=== PATIENT | female | born 1945 | race Caucasian/White ===

== ENCOUNTER → 2019-07-03 07:44 | Outpatient (CLI) | payer MEDICARE, OTHER, SELFPAY ==
[2019-07-03 08:44] LABS: Add Manual Diff / Slide Review NO; Basophils Absolute Auto 0 /uL (0-100); Eosinophils Absolute Auto 100 /uL (0-450); Eosinophils Percent Auto 2.8 % (2-4); Hematocrit 38.9 % (36-46); Hemoglobin 13.5 g/dL (12.0-16.0); Lymphocytes Absolute Auto 1400 /uL (1100-4500); Lymphocytes Percent Auto 35.4 % (25-40); Mean Corpuscular HGB Conc 34.7 % (30-36); Mean Corpuscular Hemoglobin 31.1 PG (26-34); Mean Corpuscular Volume 89.7 fL (80-100); Monocytes Absolute Auto 300 /uL (0-900); Neutrophils Absolute Auto 2000 /uL (1500-7000); Neutrophils Percent Auto 52.8 % (50-75); Platelet Count 208 X10^3/uL (150-400); Red Blood Cell Count 4.34 X10^6/uL (4.0-5.2); Red Cell Distribution Width 13.7 % (11.6-14.8); White Blood Cell Count 3.8 X10^3/uL (4.5-11.0)
[2019-07-03 09:02] LABS: Alanine Aminotransferase 24 IU/L (9-52); Albumin 3.8 g/dL (3.5-5.0); Albumin Globulin Ratio 1.4 (1.0-2.8); Alkaline Phosphatase 93 U/L (38-126); Aspartate Aminotransferase 28 IU/L (14-36); BUN Creatinine Ratio 23.8 (6-22); Bilirubin Total 0.6 mg/dL (0.2-1.3); Blood Urea Nitrogen 19 mg/dL (7-17); Calcium 9.7 mg/dL (8.4-10.2); Carbon Dioxide 31 mmol/L (22-32); Chloride 102 mmol/L (98-107); Cholesterol 185 mg/dL (140-199); Estimated Glomerular Filt Rate > 60.0 mL/min (>60); Globulin 2.8 g/dL (1.7-4.1); Glucose 97 mg/dL (80-110); HDL Cholesterol 62 mg/dL (40-60); HEMOLYSIS < 15 (0-50); LDL Cholesterol Calculated 96 mg/dL (<100); Sodium 137 mmol/L (137-145); Total Protein 6.6 g/dL (6.3-8.2); Triglycerides 136 mg/dL (35-150)
== END ==
PROVIDERS: PCP Family Medicine; Visit Provider Family Medicine
DX: E78.5 Hyperlipidemia, unspecified (principal); I10 Essential (primary) hypertension
CPT/HCPCS: 36415; 80053; 80061; 85025

== ENCOUNTER → 2019-09-22 13:48 | Outpatient (CLI) | payer MEDICARE, OTHER, SELFPAY ==
[2019-09-22 14:44] LABS: Add Manual Diff / Slide Review NO; Basophils Absolute Auto 0 /uL (0-100); Basophils Percent Auto 0.7 % (0-2); Eosinophils Absolute Auto 100 /uL (0-450); Eosinophils Percent Auto 1.7 % (2-4); Hematocrit 43.7 % (36-46); Hemoglobin 14.9 g/dL (12.0-16.0); Lymphocytes Absolute Auto 1600 /uL (1100-4500); Lymphocytes Percent Auto 25.2 % (25-40); Mean Corpuscular HGB Conc 34.2 % (30-36); Mean Corpuscular Hemoglobin 31.4 PG (26-34); Mean Corpuscular Volume 91.9 fL (80-100); Monocytes Absolute Auto 400 /uL (0-900); Monocytes Percent Auto 6.6 % (3-14); Neutrophils Absolute Auto 4100 /uL (1500-7000); Neutrophils Percent Auto 65.8 % (50-75); Platelet Count 249 X10^3/uL (150-400); Red Blood Cell Count 4.76 X10^6/uL (4.0-5.2); Red Cell Distribution Width 13.8 % (11.6-14.8); White Blood Cell Count 6.2 X10^3/uL (4.5-11.0)
[2019-09-22 14:56] LABS: Carbon Dioxide 26 mmol/L (22-32); Chloride 100 mmol/L (98-107); HEMOLYSIS 25 (0-50); Sodium 138 mmol/L (137-145)
== END ==
PROVIDERS: PCP Family Medicine; Visit Provider Orthopaedic Surgery
DX: Z01.818 Encounter for other preprocedural examination (principal); Z01.812 Encounter for preprocedural laboratory examination; M16.10 Unilateral primary osteoarthritis, unspecified hip
CPT/HCPCS: 36415; 80051; 85025; 93005

== ENCOUNTER 2019-10-16 06:05 | Inpatient (IN) | payer MEDICARE, OTHER, SELFPAY ==
[2019-10-16] VITALS (20 sets, daily range): BP systolic 94–119; BP diastolic 52–78; PULSE 54–78; RESP 14–18; TEMP 35.6–37; O2SAT 89–100; BMI 30.9
--- NOTE | 2019-10-16 06:00 | DI.RAD.S_ITS ---
PROCEDURE: XR PELVIS 1-2V INDICATIONS: post op films TECHNIQUE: 1 view of the lower pelvis acquired. COMPARISON: None. FINDINGS: Bones: Patient is status post left hip arthroplasty, with hardware components in expected positions. The hip joint appears congruent. The visualized bony structures appear intact. Soft tissues: Overlying postoperative changes are noted. No suspicious soft tissue densities. IMPRESSION: Post left total hip arthroplasty changes with anatomic alignment. Dictated by: Ramirez Garcia M.D. on 10/16/2019 at 10:05 Approved by: Ramirez Garcia M.D. on 10/16/2019 at 10:06
[2019-10-16] MEDS: LACTATED RINGERS 1,000 ML 42 ML IV ×2 (07:05→08:48)
[2019-10-16] MEDS: ACETAMINOPHEN 325 MG TABLET 975 MG PO (07:06)
[2019-10-16] MEDS: PREGABALIN 75 MG CAPSULE PO (07:06)
[2019-10-16] MEDS: CELECOXIB 200 MG CAPSULE PO (07:06)
[2019-10-16] MEDS: CEFAZOLIN 2 GM/100 ML FROZ.PIGGY IV ×2 (07:56→17:18)
--- NOTE | 2019-10-16 08:03 | PM.PREOP ---
Pre-operative Note Interval Note History & Physical reviewed/Exam performed by Physician: Yes Changes to H&P: No
--- NOTE | 2019-10-16 08:36 | SUR.OPER ---
Lateral on padded OR bed. Gel axillary roll. Arms secured on padded armboard with pillow supporting top arm. Padded hip positioner braces x4 - anterior and posterior chest and pelvis. Additional gel pad used anterior pelvis. Gel pad under bottom leg from knee to foot and secured with tape over sheet.
--- NOTE | 2019-10-16 08:46 | SUR.OPER ---
Supine on padded OR bed. Pillow under head, arms secured on padded armboards <90 degree abduction. Safety belt across torso. Non-operative leg secured with tape over blanket over lower leg. Operative leg secured in DeMayo/Al positioner. Foam padded brace at thigh of operative leg.
[2019-10-16] MEDS: KETOROLAC 30 MG/ML VIAL IV (08:49)
[2019-10-16] MEDS: MORPHINE 4 MG/ML INJ INJ (08:50)
[2019-10-16] MEDS: TRANEXAMIC ACID 1,000 MG VIAL 1000 MG INJ ×2 (08:50→09:15)
[2019-10-16] MEDS: ROPIVACAINE 0.5% PF 5 MG/ML 20ML VIAL 60 ML INJ (08:51)
--- NOTE | 2019-10-16 09:51 | P.OP_ITS ---
Operative Date/Time/Diagnoses Date of procedure: 10/16/19 Time of procedure: 09:51 Pre-op diagnosis: Left hip degenerative joint disease Post-op diagnosis: same Procedure & Clinicians Procedure: Left total hip arthroplasty (CPT code 08873 with clinical physician assistant) Same procedure as scheduled: Yes Indications: Patient is an 73-year-old female with severe left hip DJD. The patient has pain with activities and at rest, limited ambulation and activity tolerance, difficulties with ADLs, and failure of conservative treatment. We have discussed the nature of condition, treatment options, risks and benefits, and patient elects to proceed with total hip arthroplasty and gives informed consent. Surgeon: Barry Shukla [employer] Checkout Technician: Aki Henderson Anesthesia Type: Spinal and Sedation Operative Notes Closure Type: primary Specimen(s): none sent Prosthetic devices, grafts, tissues, transplants, or devices: Acetabulum: Crespo and Nephew R3 acetabular component size 52 mm Femoral component: Crespo and Nephew Anthology stem size 8 with standard offset Femoral head: 36 mm + 0 cobalt chrome Estimated Blood Loss (mL): 150 Blood products transfused: none Procedure in detail: After satisfaction induction of anesthetic, and administration of IV antibiotics, the patient was positioned in the lateral decubitus position with all bony prominences well padded and pelvic position secured using a hip freight associate positioning device. Left hip and lower extremity prepped and draped in the usual sterile fashion, 1st dose of intravenous tranexamic acid was administered, then a longitudinal incision was created centered over the greater trochanter and carried sharply through the skin and subcutaneous tissues down to the fascia shakir which was divided longitudinally and retracted with a Charnley retractor. External rotators visualize, cut, tagged, and retracted posteriorly, then the capsule was cut in a T-type fashion with the corners tagged and retracted. Hip was dislocated and femoral neck cut made according to preoperative templating. Acetabular retractors then placed, and the acetabular labrum and osteophytes were excised. The acetabulum was then sequentially reamed to 51 mm with an excellent circumferential ream and fit with the trial. The trial component was removed and a permanent size 52 mm Crespo and Nephew R3 acetabular component was selected, positioned, and impacted with satisfactory position and fixation achieved. Permanent liner was then inserted w ith the elevated lip directed posteriorly. Soft tissue then removed off the lateral femoral neck in the lateral neck was entered using a box osteotome. T- handled reamers placed down the canal followed by sequential broaching to 8 with the final broach left in place for trial reduction which demonstrated excellent leg length, range of motion, and stability characteristics with a 36 mm +0 trial ball. The trial and broach were removed, and a permanent size 8 Crespo and Nephew Anthology stem was selected and inserted with excellent position and fixation achieved. Another trial reduction yielded the above characteristics so the trial ball was exchanged for a permanent 36 mm +0 cobalt chrome ball. The hip was irrigated and reduced and excellent leg length range of motion and stability characteristics were achieved and maintained. Periarticular tissues were infiltrated with ropivacaine, morphine, and Toradol. The hip was copiously irrigated, and the capsule repaired with #2 Ethibond, and the piriformis was repaired back to the greater trochanter with the same. Fascia shakir closed with interrupted #1 Ethibond sutures, and the subcutaneous tissues were closed in 2 layers of 0 Vicryl and 2 0 Vicryl. Skin was closed with cheikh and sterile dressings applied. Second dose of tranexamic acid was administered intravenously, and the anesthetic was terminated. Complications: none Post-operative Condition: stable Disposition: PACU Plan for aftercare: Patient will be admitted to the acute care [place], and anticipate discharge on postop day 1 with follow-up in office in 10-14 days. Outpatient physical therapy will be arranged and patient will continue to observe posterior hip precautions. Patient will continue use of postoperative Lovenox for 10 days postop.
--- NOTE | 2019-10-16 09:58 | SUR.PHASEI ---
Report called to Clary.
[2019-10-16] MEDS: LACTATED RINGERS 1,000 ML 125 ML IV ×2 (10:15→17:18)
--- NOTE | 2019-10-16 10:15 | SUR.PHASEI ---
Patient transferred to the floor with belongings bag, glasses and walker. VS stable. Lt hip dressing CDI. IV saline locked. Pt denied paint. Report to Clary.
--- NOTE | 2019-10-16 10:24 | PC.NURSE ---
Addendum entered by Clary Garnica R.N. 10/16/19 11:07: SpO2 89-90% on room air, patient dozing. Placed on 1L O2 per NC. Note faxed down to surgery asking Rodin about IV fluid orders, awaiting call back. Patient denies needs at this time. Light in reach, bed alarm on. Original Note: Post-op: Arrived to room 210 at 1010. Drowsy but awake, oriented X3. Denies pain. Unable to feel from groin to toes. Strong pedal pulses, feet warm and pink. Bulky dressing to L hip C/D/I, pillow placed between BLE's to maintain posterior precautions. SCD's to BLE's. IVF per orders, site in L hand WNL. Denies N/V. Given ice chips and water, general diet ordered. BT+, denies flatus post-op. Room air sats mid 90's, cont pulse ox in place. Oriented to room and call light, encouraged to make needs known. Light and belongings within reach, bed alarm on.
--- NOTE | 2019-10-16 14:30 | PT.IIE ---
Current Diagnoses Unilateral primary osteoarthritis, left hip (10/16/19) Surgery Performed Operation Date: 10/16/19 07:45 Actual Procedures p Total Hip Arthroplasty(Left) - Barry Shukla MD Surgical History (Last Updated 05/17/18 @ 12:26 by Roseline Barger LPN) Hx of section (Resolved Unknown) Hx of cholecystectomy (Resolved Unknown) Hx of tonsillectomy (Resolved Unknown) Status post ORIF of fracture of ankle (Resolved 03/2016) Medical History (Last Updated 10/02/19 @ 09:17 by Karma Cifuentes RN) Cyst (Acute) Depression (Chronic Unknown) GERD (gastroesophageal reflux disease) (Chronic Unknown) HTN (hypertension) (Acute) Hyperlipemia (Chronic Unknown) Hypothyroidism (Chronic Unknown) Osteopenia (Chronic ~12/2015) PVC's (premature ventricular contractions) (Acute) TIA (transient ischemic attack) (Resolved 2013) Physical Therapy Inpatient Evaluation/Re-Eval M1 PT/OT-IP Prior Functional Status Start: 10/17/19 08:31 Freq: NEEDED Status: Active Protocol: Document 10/16/19 14:30 [facility] (Rec: 10/17/19 09:16 [facility] [id number]) Medical Review Prior Functional Status Medical History Reviewed Yes Diet/Fluid Consistency Regular Communication WNL Mobility and Gait cane occasionally Activities of Daily Living and IADL's indep Social History Household Members spouse Living Arrangements House Number of Floors (Floors) Two Floors Number of Stairs To Enter/Railing? only needs to use main floor; 3 JUSTIN with rail Home Environment High Toilet,Walk in Shower, Built-In Shower Seat Home Equipment Front Wheel Walker,Straight Cane,Grab Bars Near Toilet, Grab Bars In Shower Employment Status Retired Additional Social History Comment retired M2 PT-IP Current Condition Start: 10/17/19 08:31 Freq: NEEDED Status: Active Protocol: Document 10/16/19 14:30 [facility] (Rec: 10/17/19 09:16 [facility] [id number]) Physical Therapy Current Condition Current Condition Evaluation Date 10/16/19 Treatment Diagnosis L CLYDE post Precautions Posterior Hip Precautions No Hip Flexion > 90 degrees,No Hip Internal Rotation,No Hip Adduction Weight Bearing Status Weight Bearing Status Weight Bear as Tolerated M3 PT-IP Subjective Start: 10/17/19 08:31 Freq: NEEDED Status: Active Protocol: Document 10/16/19 14:30 [facility] (Rec: 10/17/19 09:16 [facility] [id number]) Subjective Physical Therapy Visit Type Type Initial Evaluation Visit Start Time 14:00 Visit Stop Time 14:29 Total Visit Minutes 29 Number of AIRPORT LOCATION MANAGER Visits 0 Physical Therapy Visit Comments Patient Comments Pt plans to go home tomorrow; still some numbness but can move leg Therapy Pain Assessment Pain When Pain Assessed At Rest Pain Present Pain Present Denied Pain M4 PT-IP Mobility and Gait Start: 10/17/19 08:31 Freq: NEEDED Status: Active Protocol: Document 10/16/19 14:30 [facility] (Rec: 10/17/19 09:16 [facility] [id number]) PT-Bed Mobility Assessment Supine to Sit Supine to Sit Minimal Assistance Scooting Scooting to Edge of Bed Contact Guard Assistance PT-Transfer Assessment Sit to and From Stand Sit to and from Stand Minimal Assistance Equipment Transfer Assistive Device Gait Belt,Front Wheeled Walker Orthotic/Prosthetic Devices or Brace: No Transfers Transfer Destination Chair Transfer Technique Stand Pivot Transfer Ability Level of Assist Minimal Assistance Comments Mobility Comments Pt required cueing d/t dec quad contraction on L side in order to offload with UE and move slowly PT-Balance Assessment Sitting Balance and Reactions Static Sitting Balance Ability Good Dynamic Sitting Balance Ability Good Standing Balance and Reactions Static Standing Balance Ability Fair Dynamic Standing Balance Ability Poor M5 PT-IP Objective Assessments Start: 10/17/19 08:31 Freq: NEEDED Status: Active Protocol: Document 10/16/19 14:30 [facility] (Rec: 10/17/19 09:16 [facility] [id number]) Orientation Orientation/Cognition Level of Alertness Alert Orientation Name,Place,Situation Language Function Ability No Deficits Noted Safety Awareness Understands Safety Issues Memory Description No Deficits Noted Strength Lower Extremity Strength Assessment Left Impaired Hip able to do hip abd & glute squeeze Knee able to quad set but not full LAQ Ankle WNL Sensation Assessment Sensation Gross Sensation Left UE Impaired Sensation Description Paresthesia M6 PT-IP Treatment Start: 10/17/19 08:31 Freq: NEEDED Status: Active Protocol: Document 10/16/19 14:30 [facility] (Rec: 10/17/19 09:16 [facility] [id number]) Physical Therapy Treatment Exercises Exercises Ankle Pumps,Gluteal Sets,Quad Sets Education Education Provided Precautions,Weight Bearing Status,Post-Op Packet,Safety M7 PT-IP Assessment and Plan Start: 10/17/19 08:31 Freq: NEEDED Status: Active Protocol: Document 10/16/19 14:30 [facility] (Rec: 10/17/19 09:16 [facility] [id number]) PT Summary Assessment and Plan Potential Rehabilitation Potential Good Status of Condition at Evaluation Evolving Summary Impairments Pain,ROM,Strength,Balance,Bed Mobility,Transfers,Gait, Activity Tolerance Assessment Summary Pt presents day of surgery and was very motivated to get better to return home tomorrow . She was able to do transfer today with cueing but does not have full function of LLE yet . She has a supportive hsuband at home and is set up with AD but does not have dressing/ bathing equipment which she may require. Pt able to verbalize understanding with precautions Goals Bed Mobility Goal Independent Transfer Goal Independent Gait Goal Standby Assistance Gait Distance 150ft Other Goals up/down 3 steps with rail SBA Days to Meet Goals 4 Frequency of Treatment Frequency Of Treatment Twice a Day Treatment Plan Physical Therapy Treatment Plan Bed Mobility Training,Transfer Training,Gait Training, Therapeutic Exercise,Balance Retraining,Post Op Education, Discharge Planning, Neuromuscular Re-ed,Manual Therapy Other Recommendations and Next Treatment Work on transfer ability and Focus gait. Try stairs if appropriate. Review all exercises Recommendations To Nursing Amount of Assist Needed 1 Person Assist Discharge Recommendations PT Discharge Recommendations Home with Assistance, Outpatient PT Equipment Needed for Home Before possibly with require sock Discharge aide, manager presentation etc
[2019-10-16] MEDS: ACETAMINOPHEN 325 MG TABLET 650 MG PO ×2 (14:53→21:13)
--- NOTE | 2019-10-16 16:24 | PC.NURSE ---
Addendum entered by Sharla Bazan R.N. 10/16/19 22:15: Since last note, patient reports some residual numbness to L inner thigh area but able to bear weight, having good motor control of LLE when transfered from bed to BS. Pulses present. Fresh ice pack in place. Voiding with no difficulty. Reports pain barely there after taking one tab hydrocodone/APAP & one hydroxyzine earlier this evening. At 2100 medicated again with one tab hydrocodone & regular scheduled tylenol. Since then dozing intermittently. IV pump beeping intermittently, IV is patent, appears as positional as IV is in bend of wrist. Fall precautions in place, alarm active. Instructed patient to call for any needs/concerns. Original Note: Evening note: Martha calling for help, reports urge to void. She told me my leg is still numb-can you do it? I then went to ask physical therapy if any of them could help me, they said they were busy seeing other patients. 2nd nurse in room, patient difficult transfer from chair to BSC, LLE buckling at knee and wobbling about, patient with no motor control of leg. 2 max assist transfer from BSC to bed, again leg buckling underneath her. She has good strength to RLE, reports slight numbness/tingling to RLE but 'nothing like my left. After transfer told me it's starting to hurt, rating pain 3/10 to L hip. Told me she wants to wait before starting on pain medication. Good sensation & can feel nurse hand on thigh knee & foot. Wiggling toes. SCD's placed bilaterally. Patient reported no urge to void but spontaneously voided 700 ml while on BSC. Fall precautions in place, alarm active for safety.
[2019-10-16] MEDS: HYDROCODONE/ACET 5/325 TABLET 1 TAB PO ×2 (17:26→21:14)
[2019-10-16] MEDS: hydrOXYzine pamoate 25 MG CAPSULE PO (17:26)
[2019-10-16] MEDS: ROSUVASTATIN 10 MG TABLET PO (21:13)
[2019-10-16] MEDS: HYDROMORPHONE 2 MG TABLET PO (23:49)
[2019-10-17] MEDS: CEFAZOLIN 2 GM/100 ML FROZ.PIGGY IV (00:30)
[2019-10-17] MEDS: LACTATED RINGERS 1,000 ML 125 ML IV (02:32)
[2019-10-17 03:05] VITALS: BP 107/57; PULSE 79; RESP 18; TEMP 37.1; O2SAT 94
[2019-10-17] MEDS: HYDROCODONE/ACET 5/325 TABLET 1 TAB PO (05:45)
[2019-10-17] MEDS: LEVOTHYROXINE 112 MCG TABLET PO (05:45)
[2019-10-17 06:11] LABS: Hemoglobin 12.4 g/dL (12.0-16.0)
--- NOTE | 2019-10-17 07:25 | PM.PNPO.1 ---
Subjective Subjective Date Patient Seen: 10/17/19 Time Patient Seen: 07:25 Interval history: POD 1 s/p L CLYDE with Dr. Shukla. She had pain control issues last night requiring oral Dilaudid, and Vistaril. She is concerned about mobilizing today and if her will be able to care for her. Denies chest pain, or shortness of breath. She is voiding without difficulty. Exam Vital Signs (past 8 hours): - 10/16/19 23:27 10/17/19 03:05 Temperature 98.6 F 98.8 F Pulse Rate 76 79 Respiratory Rate 18 18 Blood Pressure 116/68 107/57 L Pulse Oximetry 95 94 Oxygen Delivery Method Room Air Oxygen Flow Rate 0 Narrative Exam Narrative: Patient lying in bed in no acute distress. She is alert orient x3. Calves are soft, compressible, nontender bilaterally. SCDs in place. Dressing is CDI. Sensation intact to light touch throughout bilateral lower extremities. She is able to actively dorsiflex plantar flex. Objective Labs Result Diagrams: 10/17/19 05:53 Labs: Laboratory Results - last 24 hr 10/17/19 05:53 Hgb 12.4 Hct 36.0 Assessment & Plan Post-op Postoperative Procedures: Procedures Operation Date: 10/16/19 07:45 Actual Procedures Side Surgeon p Total Hip Arthroplasty Left Barry Shukla MD the patient will mobilize with physical therapy today. Posterior hip precautions. Recommending her work closely with physical therapy today. Continue current pain control. Lovenox for DVT prophylaxis. Discharge once pain adequately controlled and mobilizing safely. Quality VTE Deep Vein Thrombosis/Pulmonary Embolism Present on Admission: No
--- NOTE | 2019-10-17 08:05 | PC.NURSE ---
Day Shift- Pt wanted to sleep at this time 0805, hold breakfast.
[2019-10-17 08:20] VITALS: BP 125/73; PULSE 70; RESP 17; TEMP 36.4; O2SAT 93
[2019-10-17] MEDS: SERTRALINE 50 MG TABLET PO (08:56)
[2019-10-17] MEDS: ACETAMINOPHEN 325 MG TABLET 650 MG PO ×3 (08:57→22:16)
[2019-10-17] MEDS: DOCUSATE 100 MG CAPSULE 200 MG PO (08:58)
[2019-10-17] MEDS: OXYCODONE IR 10 MG TABLET PO ×3 (09:04→18:42)
[2019-10-17] MEDS: TRIAMTERENE/HCTZ 37.5/25 TABLET 1 CAP PO (09:04)
--- NOTE | 2019-10-17 09:09 | PC.NURSE ---
Addendum entered by Vannesa Brennan R.N. 10/17/19 11:58: PRN Oxycoodne effective, pt states pain level overall decreased, states feeling fuzzy in the head. Plan to pre-medicate at 1300 prior to next PT session. Original Note: Day Shift- Pain management plan adjusted by PA this AM, Pt updated. Pt reports 3/10 aching to left hip and lower back 3/10 rest and 8/10 with movement to BSC. Oxycodone 10mg prn given this AM, plan for AM PT session and reassess pain with new pain meds. Pt agreeable. States will given Lovenox injections for pt when at home and will be at hospital after lunch for injections and PM PT session. Pt states has Senna stool softeners/laxatives at home.
--- NOTE | 2019-10-17 11:07 | CM.DANOTE ---
DCP/Assessment: Reviewed chart. Patient is a 73yr old female admitted to [facility] for left CLYDE performed on 10-16-[address] Shukla. PCP is Gila Katz. Primary payor is 1)Medicare 2)[employer]. Met with patient explained CM/SW role. Patient resting in bed at time of visit. Patient alert and oriented. Patient reports that she plans to d/c home when medically stable. However, she is unsure she will be ready today? Patient reports pain and difficulty with sleeping. Patient has walker and has requested that her spouse go to [employer] today to obtain BSC. Patient also interested in spouse getting caregiver training. PT/Gerda made aware. Patient primarily I prior to admit, used cane, and drives on regular basis. Patient plans to go outpatient for therapy. P: CM team to follow closely for d/c needs that may arise. Current plan is for patient to d/c home with spouse support and outpatient therapy. JOEY Merlos Discharge Planning/Care Management CM Discharge Assessment Start: 10/17/19 11:00 Freq: Status: Active Protocol: Document 10/17/19 11:00 [facility] (Rec: 10/17/19 11:04 [facility] [id number]) Discharge Planning Assessment Assigned Accountant Tax JOEY Merlos Contact Information Dar Jaramillo (spouse) ph# [phone] Advance Directives? Yes History Provided By Patient,Medical Record Prior Living Arrangements House Household Members spouse Type of transporation used prior to Drives own vehicle admit Independent with ADL's Yes Is patient alert and oriented? Yes Caregiver for Another No DME Already Rented / Owned FWW / Walker Patient/Family Preference OP PT Therapy Comment Pending therapy recommendations and caregiver training. Discharge Plan Home Transportation Arrangement Spouse/Family Whiteboard Updated in Patient Room with Yes name and ext. # of Accountant Tax Review Status In Process Next Review Type Continued Stay Review Pre-Anesthesia Assessment Start: 10/02/19 08:39 Freq: Status: Complete Protocol: Document 10/02/19 08:39 [facility] (Rec: 10/02/19 09:32 [facility] [id number]) Pre-Anesthesia Assessment Patient Information Reviewed Via Phone Assessment Assessment Completed With Patient Diagnostic Results CBC,EKG,Electrolytes Comment Labs/EKG @ [facility] 09/22/19. Previous EKGs available @ , no sig change Primary Care Provider Gila Katz Seen Specialist in Last 12 Months Yes Specialist Seen Orthopedist Primary Language Portuguese Fitter Machinist Required No Height 168.91 cm Weight 85.729 kg Body Mass Index (BMI) 30.0 Hearing Ability Normal Visual Assist Glasses Dentition Type Teeth, Natural Present,Dental Implants Barriers to Learning None Hx Anesthesia Reactions No Hx Family Anesthesia Reaction No Hx Malignant Hyperthermia No Hx Blood Transfusions No Anesthesia Review Requested No alcohol intake current alcohol intake frequency holidays/special occasions only Smoking Status Never smoker Substance Use Type marijuana Comment Advised not to smoke marijuana 24 hours prior to surgery Pain Present Pain Reported Musculoskeletal Symptoms Abnormal Gait,Difficulty Walking,Joint Pain,Radiating Pain into Limb History of Falling (Recent or History of Yes ) Patient is completely paralyzed or No completely immobile Prosthesis or Orthotic Device Cane Mental Status Oriented to own ability Is patient on oxygen? No Does patient have SANDOVAL/SOB No Hx Sleep Apnea No Currently Taking a Beta Edna No Can You Climb a Flight of Stairs Without Yes SOB Hx Chest Pain No Hx SOB No Hx Syncope or Dizziness No Anti-Coagulant Therapy No Has a Investigative Shopper No Cardiac Testing No Hx Pacemaker/ICD No Pacemaker Rep Required? No Cardiac Clearance Received Not Applicable Diet Type At Home Regular dysphagia No Bladder Pattern Frequency,Incontinent,Urgency Urinary Catheter Present No Hx Urinary Self Catheterization No Diabetes No Patient No Lactating No Hx Drug Resistant Organism Yes: Possible MRSA to muhammad >10 years ago Presence of External or Internal Medical Yes: Right ankle hardware Devices Have you traveled outside the [facility] States in the last 30 days? Marital Status Lives With spouse Prior Living Arrangements House Number of Floors (Floors) Two Floors Support System Spouse Patient Discharge Plan Description Return Home Comment Pt not advised on length of stay per surgeon Feels Safe in Current Environment Yes Been Physically Hurt or Threatened By a No Person in Current Environment Do you have thoughts of harming yourself None or others? Are you currently considering suicide? No Do you have a plan to hurt yourself or No Plan others? Do You Have Any Spiritual Beliefs That No May Affect Your HC Choices? Do You Have Any Cultural Practices That No May Affect Your HC Choices? Who Can We Speak to About Patient's Care Family, friends Identifying Code for Release of Patient Declines to issue Information Health Care Proxy/Next of Kin Dar Jaramillo () Health Care Proxy Emergency Contact Name Dar Jaramillo () Emergency Contact PAC Instructions Do not shave/clip surgical site,Durable medical equipment ,Medications to take/avoid, Nasal antibiotic,No ETOH/ petroleum product on skin DOS, NPO,Pre-surgical wash,Sensory aids,Sturdy shoes/comfortable clothes,Do not bring valuables and remove jewelry
[2019-10-17 11:13] VITALS: O2SAT 97
--- NOTE | 2019-10-17 11:18 | PT.IPTN ---
Current Diagnoses Unilateral primary osteoarthritis, left hip (10/16/19) Surgery Performed Operation Date: 10/16/19 07:45 Actual Procedures p Total Hip Arthroplasty(Left) - Barry Shukla MD Physical Therapy Treatment Note M2 PT-IP Current Condition Start: 10/17/19 08:31 Freq: NEEDED Status: Active Protocol: Document 10/16/19 14:30 [facility] (Rec: 10/17/19 09:16 [facility] [id number]) Physical Therapy Current Condition Current Condition Evaluation Date 10/16/19 Treatment Diagnosis L CLYDE post Precautions Posterior Hip Precautions No Hip Flexion > 90 degrees,No Hip Internal Rotation,No Hip Adduction Weight Bearing Status Weight Bearing Status Weight Bear as Tolerated M3 PT-IP Subjective Start: 10/17/19 08:31 Freq: NEEDED Status: Active Protocol: Document 10/17/19 10:59 AW (Rec: 10/17/19 11:18 AW [email or web address]) Subjective Physical Therapy Visit Type Type Treatment Note Visit Start Time 10:25 Visit Stop Time 10:57 Total Visit Minutes 32 Number of COMMUNICATIONS AND SIGNALS SUPERVISOR Visits 0 Physical Therapy Visit Comments Patient Comments Pt reports pain is better managed at this time and is willing to work with PT Therapy Pain Assessment Pain When Pain Assessed During Mobility Pain Present Pain Present Pain Reported Location Left Hip Intensity 4 Scale Used Numeric (1 - 10) Pain Management Techniques Apply Cold,Re-positioning, Timing of Activity with Medications M4 PT-IP Mobility and Gait Start: 10/17/19 08:31 Freq: NEEDED Status: Active Protocol: Document 10/17/19 10:59 AW (Rec: 10/17/19 11:18 AW [email or web address]) PT-Bed Mobility Assessment Supine to Sit Supine to Sit Minimal Assistance,Bedrails Scooting Scooting to Edge of Bed Contact Guard Assistance PT-Transfer Assessment Sit to and From Stand Sit to and from Stand Minimal Assistance Equipment Transfer Assistive Device Gait Belt,Front Wheeled Walker Orthotic/Prosthetic Devices or Brace: No Transfers Transfer Destination Chair Transfer Technique pt ambulated with FWW Comments Mobility Comments Pt required min assist to support her operative leg during bed mobility, but she was able to complete with HOB flat and use of bed rails. Transfers from bed and to chair requried cueing for LLE positioning and to avoid trunk flexion. Gait Assessment Gait Gait Assistance Required: Contact Guard Assist Distance (Feet) 75 Able to Maintain Weight Bearing Status Yes During Gait Assistive Devices Assistive Device Gait Belt,Front Wheeled Walker Orthotic/Prosthetic Devices or Brace: No Gait Deviations General Gait Pattern Antalgic,Decreased Stride Length,Decreased Feet Clearance,Flexed Trunk,Step-to Gait Factors Limiting Gait Function Factors Limiting Gait Function Decreased Activity Tolerance, Decreased Strength,Limited Range of Motion,Pain,Poor Balance Comments Gait Comments Pt ambulated 75 feet using FWW CGA. She was able to correct her step-to pattern with min cues. Pt reported feeling lightheaded ~10 feet from chair. She was able to walk to the chair where her BP was 120/52 and her symptoms cleared. Pt left reclined in chair with pillow between legs to discourage adduction, call light and table within reach. Stair Climbing Assessment Comments Stair Climbing Comments Not assessed. M5 PT-IP Objective Assessments Start: 10/17/19 08:31 Freq: NEEDED Status: Active Protocol: Document 10/16/19 14:30 [facility] (Rec: 10/17/19 09:16 [facility] [id number]) Orientation Orientation/Cognition Level of Alertness Alert Orientation Name,Place,Situation Language Function Ability No Deficits Noted Safety Awareness Understands Safety Issues Memory Description No Deficits Noted Strength Lower Extremity Strength Assessment Left Impaired Hip able to do hip abd & glute squeeze Knee able to quad set but not full LAQ Ankle WNL Sensation Assessment Sensation Gross Sensation Left UE Impaired Sensation Description Paresthesia M6 PT-IP Treatment Start: 10/17/19 08:31 Freq: NEEDED Status: Active Protocol: Document 10/17/19 10:59 AW (Rec: 10/17/19 11:18 AW [email or web address]) Physical Therapy Treatment Exercises Exercises Ankle Pumps,Gluteal Sets,Quad Sets,Heel Slides Education Education Provided Precautions,Safety M7 PT-IP Assessment and Plan Start: 10/17/19 08:31 Freq: NEEDED Status: Active Protocol: Document 10/17/19 10:59 AW (Rec: 10/17/19 11:18 AW [email or web address]) PT Summary Assessment and Plan Summary Impairments Pain,ROM,Strength,Balance,Bed Mobility,Transfers,Gait, Activity Tolerance Progress Towards Goals Progressing Toward Goals,Slow Progress due to Pain Assessment Summary On POD1, pt has improved control of LLE and ability to bear weight with 1-point increase in pain on a 10-point scale. Her spouse will attend afternoon session for caregiver training. Goals Bed Mobility Goal Independent Transfer Goal Independent Gait Goal Standby Assistance Gait Distance 150ft Other Goals up/down 3 steps with rail SBA Days to Meet Goals 3 Frequency of Treatment Frequency Of Treatment Twice a Day Treatment Plan Physical Therapy Treatment Plan Bed Mobility Training,Transfer Training,Gait Training, Therapeutic Exercise,Balance Retraining,Post Op Education, Discharge Planning, Neuromuscular Re-ed,Manual Therapy Other Recommendations and Next Treatment Caregiver training, trial Focus stairs Recommendations To Nursing Amount of Assist Needed 1 Person Assist Discharge Recommendations PT Discharge Recommendations Home with Assistance, Outpatient PT Equipment Needed for Home Before possibly with require sock Discharge aide, food service director etc
[2019-10-17 13:05] VITALS: BP 102/57; PULSE 78; RESP 17; TEMP 37.2; O2SAT 92
[2019-10-17] MEDS: ENOXAPARIN 40 MG/0.4 ML SYRINGE SUBCUT (14:35)
--- NOTE | 2019-10-17 14:49 | PT.IPTN ---
Current Diagnoses Unilateral primary osteoarthritis, left hip (10/16/19) Surgery Performed Operation Date: 10/16/19 07:45 Actual Procedures p Total Hip Arthroplasty(Left) - Barry Shukla MD Physical Therapy Treatment Note M2 PT-IP Current Condition Start: 10/17/19 08:31 Freq: NEEDED Status: Active Protocol: Document 10/16/19 14:30 [facility] (Rec: 10/17/19 09:16 [facility] [id number]) Physical Therapy Current Condition Current Condition Evaluation Date 10/16/19 Treatment Diagnosis L CLYDE post Precautions Posterior Hip Precautions No Hip Flexion > 90 degrees,No Hip Internal Rotation,No Hip Adduction Weight Bearing Status Weight Bearing Status Weight Bear as Tolerated M3 PT-IP Subjective Start: 10/17/19 08:31 Freq: NEEDED Status: Active Protocol: Document 10/17/19 14:34 AW (Rec: 10/17/19 14:49 AW [email or web address]) Subjective Physical Therapy Visit Type Type Treatment Note Visit Start Time 14:00 Visit Stop Time 14:31 Total Visit Minutes 31 Number of ELECTRICAL ELECTRONICS ENGINEERS Visits 0 Physical Therapy Visit Comments Patient Comments Pt sitting up in chair since AM session. She is ready to get back to bed. Therapy Pain Assessment Pain When Pain Assessed During Mobility Pain Present Pain Present Pain Reported Location Left Hip Intensity 7 Scale Used 5/10 at rest, 7/10 with mobility Pain Management Techniques Apply Cold,Re-positioning, Timing of Activity with Medications M4 PT-IP Mobility and Gait Start: 10/17/19 08:31 Freq: NEEDED Status: Active Protocol: Document 10/17/19 14:34 AW (Rec: 10/17/19 14:49 AW [email or web address]) PT-Bed Mobility Assessment Sit to Supine Sit to Supine Minimal Assistance,Bedrails Scooting Scooting to Edge of Bed Standby Assistance Scooting Up and Down in Bed Standby Assistance PT-Transfer Assessment Sit to and From Stand Sit to and from Stand Minimal Assistance Equipment Transfer Assistive Device Gait Belt,Front Wheeled Walker Orthotic/Prosthetic Devices or Brace: No Transfers Transfer Destination Bed Transfer Technique pt ambulated with FWW Comments Mobility Comments Pt required min assist for sit to supine and sit to stand transfers. Pt required verbal cues for sequencing with stand to sit transfers. Spouse present for caregiver training . Reviewed hip precautions and cues to help pt maintain those precautions. Gait Assessment Gait Gait Assistance Required: Contact Guard Assist Distance (Feet) 90 Able to Maintain Weight Bearing Status Yes During Gait Assistive Devices Assistive Device Gait Belt,Front Wheeled Walker Orthotic/Prosthetic Devices or Brace: No Gait Deviations General Gait Pattern Antalgic,Decreased Stride Length,Decreased Feet Clearance,Flexed Trunk,Step-to Gait Factors Limiting Gait Function Factors Limiting Gait Function Decreased Activity Tolerance, Decreased Strength,Limited Range of Motion,Pain,Poor Balance Comments Gait Comments Pt ambulated 90 feet using FWW CGA to stairs and then another 40 feet using FWW and spouse providing CGA. Pt demonstrated improved awareness of gait pattern, requiring fewer cues for step length. Stair Climbing Assessment Evaluation Level of Assist On Stairs Contact Guard Assistance Devices Stair Climbing Assistive Devices Left Railing,Right Railing Technique/Endurance Stair Climbing Direction Ascend and Descend Stair Climbing Technique Step to Step Number of Steps Climbed 3 Stair Climbing Set # Repetitions (reps) 1 Comments Stair Climbing Comments Pt used bilateral rails to simulate home environment where stairs are wide enough to have one hand on a railing and RENTAL COUNTER CLERK of spouse on the opposite side. CGA required for stair navigation. M5 PT-IP Objective Assessments Start: 10/17/19 08:31 Freq: NEEDED Status: Active Protocol: Document 10/16/19 14:30 [facility] (Rec: 10/17/19 09:16 [facility] [id number]) Orientation Orientation/Cognition Level of Alertness Alert Orientation Name,Place,Situation Language Function Ability No Deficits Noted Safety Awareness Understands Safety Issues Memory Description No Deficits Noted Strength Lower Extremity Strength Assessment Left Impaired Hip able to do hip abd & glute squeeze Knee able to quad set but not full LAQ Ankle WNL Sensation Assessment Sensation Gross Sensation Left UE Impaired Sensation Description Paresthesia M6 PT-IP Treatment Start: 10/17/19 08:31 Freq: NEEDED Status: Active Protocol: Document 10/17/19 14:34 AW (Rec: 10/17/19 14:49 AW [email or web address]) Physical Therapy Treatment Exercises Exercises Ankle Pumps,Gluteal Sets,Quad Sets,Heel Slides Education Education Provided Precautions,Safety Other Treatments Other Treatment Performed Spouse participated in caregiver training including use of gait belt, safe technique for guarding and providing CGA, posterior hip precautions, and stair navigation. M7 PT-IP Assessment and Plan Start: 10/17/19 08:31 Freq: NEEDED Status: Active Protocol: Document 10/17/19 14:34 AW (Rec: 10/17/19 14:49 AW [email or web address]) PT Summary Assessment and Plan Summary Impairments Pain,ROM,Strength,Balance,Bed Mobility,Transfers,Gait, Activity Tolerance Progress Towards Goals Progressing Toward Goals Assessment Summary Pt progressed gait distance and managed stairs with CGA. Spouse is able to provide assistance at home as needed. PT continues to recommend pt discharge to home with spouse assist and outpatient therapy when medically cleared. Goals Bed Mobility Goal Independent Transfer Goal Independent Gait Goal Standby Assistance Gait Distance 150ft Other Goals up/down 3 steps with rail SBA Days to Meet Goals 3 Frequency of Treatment Frequency Of Treatment Twice a Day Treatment Plan Physical Therapy Treatment Plan Bed Mobility Training,Transfer Training,Gait Training, Therapeutic Exercise,Balance Retraining,Post Op Education, Discharge Planning, Neuromuscular Re-ed,Manual Therapy Other Recommendations and Next Treatment Reinforce caregiver training Focus if spouse present, continue to train stairs. Recommendations To Nursing Amount of Assist Needed 1 Person Assist Discharge Recommendations PT Discharge Recommendations Home with Assistance, Outpatient PT Equipment Needed for Home Before possibly with require sock Discharge aide, k9 handler etc
[2019-10-17 15:31] VITALS: BP 112/54; PULSE 78; RESP 18; TEMP 36.7; O2SAT 93
[2019-10-17] MEDS: hydrOXYzine pamoate 25 MG CAPSULE PO (18:42)
[2019-10-17 19:47] VITALS: BP 107/54; PULSE 71; RESP 18; TEMP 36.4; O2SAT 96
[2019-10-17] MEDS: SODIUM CHLORIDE 0.9% FLUSH 10 ML IV (22:16)
[2019-10-17] MEDS: ROSUVASTATIN 10 MG TABLET PO (22:16)
[2019-10-18] VITALS (7 sets, daily range): BP systolic 56–155; BP diastolic 42–72; PULSE 68–79; RESP 16–18; TEMP 36.2–37.1; O2SAT 91–97
[2019-10-18] MEDS: LEVOTHYROXINE 112 MCG TABLET PO (02:49)
[2019-10-18] MEDS: OXYCODONE IR 5 MG TABLET PO ×2 (04:50→07:04)
--- NOTE | 2019-10-18 07:48 | PM.PNPO.1 ---
Subjective Subjective Date Patient Seen: 10/18/19 Time Patient Seen: 07:48 Interval history: POD #2 s/p L CLYDE with Dr. Shukla. Her pain control was better last night than yesterday. She worked with physical therapy all day yesterday. Her was there for caregiver training as well. She notes her biggest concern is being able to get out of bed in the morning. She woke up with some pain in her foot. Exam Vital Signs (past 8 hours): - 10/18/19 00:17 10/18/19 05:05 10/18/19 07:35 Temperature 98.8 F 98.1 F 98 F Pulse Rate 70 79 75 Respiratory Rate 18 16 16 Blood Pressure 101/52 L 155/58 H 119/66 Pulse Oximetry 91 94 96 Oxygen Delivery Method Room Air Oxygen Flow Rate 0 Narrative Exam Narrative: Patient lying in bed in no acute distress. She is alert orient x3. Calves are soft, compressible, and nontender bilaterally. Dorsalis pedis pulses are 2+. Left foot is well perfused, nontender this morning to palpation, brisk capillary refill, and of normal color. She is able to actively dorsiflex and plantar flex. Objective Labs Result Diagrams: 10/17/19 05:53 Assessment & Plan Post-op Assessment and plan (1) S/P total hip arthroplasty: Postoperative Procedures: Procedures Operation Date: 10/16/19 07:45 Actual Procedures Side Surgeon p Total Hip Arthroplasty Left Barry Shukla MD Patient will continue to mobilize with physical therapy today. Continue current pain control. She is eating and voiding without difficulty or assistance. She will likely be able to go home this afternoon. Quality VTE Deep Vein Thrombosis/Pulmonary Embolism Present on Admission: No
--- NOTE | 2019-10-18 08:30 | PT.IPTN ---
Addendum entered and electronically signed by Rashida Obrien PTA 10/18/19 16:03: PLANNING INTERN unable to locate patient's nurse end of tx but reported to nursing professor BPs taken during tx. Patient progressed in gait and able to complete 3 step stair mgt with 1 HR and overnight caregiver training. Pt is safe for DC home when medically cleared. Continue recommend outpatient PT. Original Note: Current Diagnoses Unilateral primary osteoarthritis, left hip (10/16/19) Presence of unspecified artificial hip joint (10/16/19) Surgery Performed Operation Date: 10/16/19 07:45 Actual Procedures p Total Hip Arthroplasty(Left) - Barry Shukla MD Physical Therapy Treatment Note M2 PT-IP Current Condition Start: 10/17/19 08:31 Freq: NEEDED Status: Active Protocol: Document 10/16/19 14:30 [facility] (Rec: 10/17/19 09:16 [facility] [id number]) Physical Therapy Current Condition Current Condition Evaluation Date 10/16/19 Treatment Diagnosis L CLYDE post Precautions Posterior Hip Precautions No Hip Flexion > 90 degrees,No Hip Internal Rotation,No Hip Adduction Weight Bearing Status Weight Bearing Status Weight Bear as Tolerated M3 PT-IP Subjective Start: 10/17/19 08:31 Freq: NEEDED Status: Active Protocol: Document 10/18/19 07:47 [facility] (Rec: 10/18/19 09:47 [facility] [id number]) Subjective Physical Therapy Visit Type Type Treatment Note Visit Start Time 07:47 Visit Stop Time 08:30 Total Visit Minutes 43 Number of PLANNING INTERN Visits 1 Physical Therapy Visit Comments Patient Comments Pt was laying in bed when arrived, agreeable to PT before breakfast. Want to get better at sitting up in bed without help. Therapy Pain Assessment Pain When Pain Assessed At Rest Pain Present Pain Present Pain Reported Location Left Hip Intensity 2 Scale Used 2/10 pain at rest, 6/10 during mobility Pain Management Techniques Apply Cold,Re-positioning, Timing of Activity with Medications M4 PT-IP Mobility and Gait Start: 10/17/19 08:31 Freq: NEEDED Status: Active Protocol: Document 10/18/19 07:47 [facility] (Rec: 10/18/19 09:47 SP [id number]) PT-Bed Mobility Assessment Rolling Type of Rolling Roll to Left Supine to Sit Supine to Sit Minimal Assistance,1 Person Assistance Sit to Supine Sit to Supine Contact Guard Assistance Scooting Scooting to Edge of Bed Standby Assistance Scooting Up and Down in Bed Standby Assistance PT-Transfer Assessment Sit to and From Stand Sit to and from Stand Contact Guard Assistance,Use of Upper Extremities Equipment Transfer Assistive Device Gait Belt,Front Wheeled Walker Orthotic/Prosthetic Devices or Brace: No Transfers Transfer Destination Bed Transfer Technique pt ambulated with FWW Comments Mobility Comments Pt required min A for trunk guidence supine>sit reaching across body (HOB flat as home) , educated use of FWW at side of bed for support and using BUE push from bed for trunk to complete to sitting. Pt was able to get BLE to EOB post instruction of using gait belt with LLE and cuing for bridging assist positioning toward EOB with success. Pt reported can help the littlesupport to sitting with RUE to pull from as completed during tx. Gait Assessment Gait Gait Assistance Required: Contact Guard Assist Distance (Feet) 90 Able to Maintain Weight Bearing Status Yes During Gait Assistive Devices Assistive Device Gait Belt,Front Wheeled Walker Orthotic/Prosthetic Devices or Brace: No Gait Deviations General Gait Pattern Antalgic,Decreased Stride Length,Decreased Feet Clearance,Flexed Trunk,Step-to Gait Factors Limiting Gait Function Factors Limiting Gait Function Decreased Activity Tolerance, Decreased Strength,Limited Range of Motion,Pain,Poor Balance Comments Gait Comments Pt was able to complete ambulation 90 ft to stairs FWW SBA step to gait with one pause for rest break. Stair Climbing Assessment Evaluation Level of Assist On Stairs Contact Guard Assistance Devices Stair Climbing Assistive Devices Right Railing Technique/Endurance Stair Climbing Direction Ascend and Descend Stair Climbing Technique Step to Step Number of Steps Climbed 3 Stair Climbing Set # Repetitions (reps) 1 Comments Stair Climbing Comments Pt used R HR with BUE step to gait pattern to assimulate home environment. CGA required for stair navigation. Pt reported feeling dizzy and nauseous, safe getting down stairs and nursing aid acquired w/c for support. PLANNING INTERN pushed patient back to room and assessed vitals: HR 77, BP sitting 56/42, rested 5 min then assessed after transfer back into bed 112/57 and reclined into trendelenburg for support with BP. PT-Balance Assessment Sitting Balance and Reactions Static Sitting Balance Ability Good Dynamic Sitting Balance Ability Good Standing Balance and Reactions Static Standing Balance Ability Good Dynamic Standing Balance Ability Good M5 PT-IP Objective Assessments Start: 10/17/19 08:31 Freq: NEEDED Status: Active Protocol: Document 10/16/19 14:30 [facility] (Rec: 10/17/19 09:16 [facility] [id number]) Orientation Orientation/Cognition Level of Alertness Alert Orientation Name,Place,Situation Language Function Ability No Deficits Noted Safety Awareness Understands Safety Issues Memory Description No Deficits Noted Strength Lower Extremity Strength Assessment Left Impaired Hip able to do hip abd & glute squeeze Knee able to quad set but not full LAQ Ankle WNL Sensation Assessment Sensation Gross Sensation Left UE Impaired Sensation Description Paresthesia M6 PT-IP Treatment Start: 10/17/19 08:31 Freq: NEEDED Status: Active Protocol: Document 10/18/19 07:47 SP (Rec: 10/18/19 09:47 SP [id number]) Physical Therapy Treatment Exercises Exercises Gluteal Sets,Heel Slides, Supine Hip Abduction Education Education Provided Precautions,Safety Other Treatments Other Treatment Performed Discussed use of gait belt for LLE support in/out of bed and use of sock aid for donning socks mentioned in initial eval with brochure provided for visual. Suggested to take home gait belt for LE support with in/out bed for increased independance. Discussed with nursing nausea and dizziness and decrease in BP end of tx. Pt all needs within reach end of tx while laying in bed. M7 PT-IP Assessment and Plan Start: 10/17/19 08:31 Freq: NEEDED Status: Active Protocol: Document 10/18/19 07:47 SP (Rec: 10/18/19 09:47 SP [id number]) PT Summary Assessment and Plan Potential Rehabilitation Potential Good Status of Condition at Evaluation Evolving Summary Impairments Pain,ROM,Strength,Balance,Bed Mobility,Transfers,Gait, Activity Tolerance Progress Towards Goals Progressing Toward Goals Assessment Summary Pt progressed gait distance and managed stairs with CGA. Spouse is able to provide assistance at home as needed. PT continues to recommend pt discharge to home with spouse assist and outpatient therapy when medically cleared. Goals Bed Mobility Goal Independent Transfer Goal Independent Gait Goal Standby Assistance Gait Distance 150ft Other Goals up/down 3 steps with rail SBA Days to Meet Goals 3 Frequency of Treatment Frequency Of Treatment Twice a Day Treatment Plan Physical Therapy Treatment Plan Bed Mobility Training,Transfer Training,Gait Training, Therapeutic Exercise,Balance Retraining,Post Op Education, Discharge Planning, Neuromuscular Re-ed,Manual Therapy Other Recommendations and Next Treatment Pt required min supprot for Focus trunk sup>sit, educated use of gait belt for LLE support for increase independence and FWW at side of bed for trunk support at home knowing no bed rails. Pt complete scooting to EOB CGA and sit to stand CGA. See mobility for gait and stair mgt. Pt experienced nausea, dizziness while descending stairs, nursing aid acquired w/c for mobilty back to room and assessed vitals: BP 56/42 seated in w/c, 112/57 laying in bed in trendelenburg. Pain 2/10 at rest supine, 6/10 durign mobility. Reapplied ice pack to anterior L ankle and Lateral L hip prior to leaving for assist pain control. Pt had all needs in reach. PRovided brochure and education on DME leg early childhood services coordinator and sock air for increase independence at home. Recommendations To Nursing Amount of Assist Needed 1 Person Assist Discharge Recommendations PT Discharge Recommendations Home with Assistance, Outpatient PT Equipment Needed for Home Before possibly with require sock Discharge aide, inspector boiler etc
[2019-10-18] MEDS: SERTRALINE 50 MG TABLET PO (09:12)
[2019-10-18] MEDS: DOCUSATE 100 MG CAPSULE 200 MG PO (09:12)
[2019-10-18] MEDS: ACETAMINOPHEN 325 MG TABLET 650 MG PO ×2 (09:12→15:33)
[2019-10-18] MEDS: SODIUM CHLORIDE 0.9% FLUSH 10 ML IV (09:13)
--- NOTE | 2019-10-18 10:48 | PC.NURSE ---
Addendum entered by Vannesa Brennan R.N. 10/18/19 15:30: Pt's Dar arrived to unit and left prior to Lovenox injection. Pt's administered properly yesterday, Paperwork on Lovenox injections with discharge paperwork. Lovenox injection given by this RN. Pt did not want prn med at 1330 with reassessment, pt stated I'm doing okay. Suggested taking a prn med prior to discharge for comfort of drive and settling at home. Addendum entered by Vannesa Brennan R.N. 10/18/19 13:08: Pt assisted from bed to BR, voided, passed flatus, no BM, assisted into recliner chair. BP taken at 1300 for 96/52 Pulse 74. Original Note: Late entry for 10/17- Scheduled Lovenox injection held until pt's Dar arrives for home teaching. Lovenox teaching complete around 1430. Dar able to properly demonstrate administration as he plans to perform this skill at home for pt upon discharge. Day Shift- Pt reports pain 2-3/10 with rest and 5-6/10 movement. Left hip aching. Pain to dorsal foot, ice pack placed. АЛЕКСАНДР Spence aware. Pt denies numbness or tingling. Pain management plan discussed. Pt states Oxycodone 5mg dose not lasting/effective. Ice pack intermittent to left hip. Pt reported feeling faint while working with PT, stated seeing pixels, diaphoretic, faint. BP noted on monitor for 56/42, P 76 and upon reassessment after 10 mins 112/57, P 77. АЛЕКСНАДР Spence update at 1035 with this above information. Monitor with next OOB movement and PT session. Holding Scheduled Lovenox injection until pt's Dar arrives around 1200.
[2019-10-18] MEDS: ENOXAPARIN 40 MG/0.4 ML SYRINGE SUBCUT (13:11)
[2019-10-18] MEDS: INFLUENZA VACCINE 0.5 ML SYRINGE IM (15:34)
== END 2019-10-18 17:00 | disposition home or self-care (01) | DRG 470 ==
PROVIDERS: Admitting Provider Orthopaedic Surgery; PCP Nurse Practitioner; Visit Provider Orthopaedic Surgery
PROC: 0SRB0JZ Replacement of Left Hip Joint with Synthetic Substitute, Open Approach (ICD-10-PCS; CPT 27130; principal; 2019-10-16 07:45)
DX: M16.12 Unilateral primary osteoarthritis, left hip (principal); E03.9 Hypothyroidism, unspecified; I10 Essential (primary) hypertension; E78.5 Hyperlipidemia, unspecified; F32.9 Major depressive disorder, single episode, unspecified; K21.9 Gastro-esophageal reflux disease without esophagitis
CPT/HCPCS: 36415; 72170; 85014; 85018; 90471; 90656; 94760; 97110; 97116; 97162; 97530; C1776; J0690; J1650; J1885; J2250; J2270; J2704; J3010; Q2038

== ENCOUNTER → 2019-10-30 10:24 | Outpatient (CLI) | payer MEDICARE, OTHER, SELFPAY ==
[2019-10-16 10:42] VITALS: BMI 30.9
--- NOTE | 2019-10-30 10:26 | DI.US.S_ITS ---
PROCEDURE: US PERIPH VENOUS LOW EXTREM BI INDICATIONS: BILATERAL LE EDEMA, S/P HIP REPLACEMENT SURGERY TECHNIQUE: Real-time imaging, as well as color and pulse Doppler interrogation, were performed of the deep veins of both legs from the inguinal ligament to the popliteal fossa. COMPARISON: None. FINDINGS: Right: The common femoral, femoral and popliteal veins are normally compressible, and free of intraluminal thrombus. Color and pulse Doppler demonstrate normal phasic intravascular flow. There is normal augmentation response to distal compression maneuver. Left: The common femoral, femoral and popliteal veins are normally compressible, and free of intraluminal thrombus. Color and pulse Doppler demonstrate normal phasic intravascular flow. There is normal augmentation response to distal compression maneuver. IMPRESSION: No visualized deep venous thrombosis. Dictated by: Amarilis Beth M.D. on 10/30/2019 at 11:17 Approved by: Amarilis Beth M.D. on 10/30/2019 at 11:18
== END ==
PROVIDERS: PCP Nurse Practitioner; Visit Provider Nurse Practitioner
DX: R60.0 Localized edema (principal); E03.9 Hypothyroidism, unspecified; E78.5 Hyperlipidemia, unspecified; I10 Essential (primary) hypertension; F32.9 Major depressive disorder, single episode, unspecified; Z79.899 Other long term (current) drug therapy; Z96.649 Presence of unspecified artificial hip joint
CPT/HCPCS: 93970

== ENCOUNTER 2019-11-17 16:53 | Emergency (ER) | payer MEDICARE, OTHER, SELFPAY ==
[2019-10-16 10:42] VITALS: BMI 30.9
[2019-11-17 17:02] VITALS: BP 137/64; PULSE 81; RESP 18; TEMP 36.4; O2SAT 98; BMI 30.7
--- NOTE | 2019-11-17 17:23 | DI.RAD.S_ITS ---
PROCEDURE: XR CHEST 1V INDICATIONS: chest pain TECHNIQUE: One view of the chest was acquired. COMPARISON: [facility], , CHEST 1 VIEW, 07/08/2015, 9:22. FINDINGS: Surgical changes and devices: None. Lungs and pleura: Lungs are clear. No pleural effusions or pneumothorax. Mediastinum: Mediastinal contours appear normal. Heart size is normal. Bones and chest wall: No suspicious bony lesions. Overlying soft tissues appear unremarkable. IMPRESSION: Normal for age, source of current chest pain symptoms is not seen. Dictated by: Silvestre Raman M.D. on 11/17/2019 at 18:29 Approved by: Silvestre Raman M.D. on 11/17/2019 at 18:29
[2019-11-17 17:33] LABS: Add Manual Diff / Slide Review NO; Basophils Absolute Auto 100 /uL (0-100); Eosinophils Absolute Auto 200 /uL (0-450); Eosinophils Percent Auto 2.3 % (2-4); Hematocrit 35.1 % (36-46); Hemoglobin 11.9 g/dL (12.0-16.0); Lymphocytes Absolute Auto 1400 /uL (1100-4500); Lymphocytes Percent Auto 18.7 % (25-40); Mean Corpuscular HGB Conc 34.1 % (30-36); Mean Corpuscular Hemoglobin 30.9 PG (26-34); Mean Corpuscular Volume 90.6 fL (80-100); Monocytes Absolute Auto 500 /uL (0-900); Monocytes Percent Auto 6.9 % (3-14); Neutrophils Absolute Auto 5400 /uL (1500-7000); Neutrophils Percent Auto 71.1 % (50-75); Platelet Count 255 X10^3/uL (150-400); Prothrombin Time 11.8 SECONDS (10.1-12.7); Red Blood Cell Count 3.87 X10^6/uL (4.0-5.2); Red Cell Distribution Width 14.2 % (11.6-14.8); White Blood Cell Count 7.6 X10^3/uL (4.5-11.0)
[2019-11-17 17:36] LABS: PTT Partial Thromboplastin Tim 29 SECONDS (26.4-36.2)
[2019-11-17 17:39] VITALS: BP 129/66; BP 134/69; BP 144/69; PULSE 69; PULSE 79; PULSE 80
[2019-11-17 17:40] LABS: Alanine Aminotransferase 15 IU/L (<35); Albumin Globulin Ratio 1.5 (1.0-2.8); Alkaline Phosphatase 113 U/L (38-126); Aspartate Aminotransferase 27 IU/L (14-36); BUN Creatinine Ratio 27.5 (6-22); Bilirubin Total 0.4 mg/dL (0.2-1.3); Blood Urea Nitrogen 22 mg/dL (7-17); Calcium 10.2 mg/dL (8.4-10.2); Carbon Dioxide 26 mmol/L (22-32); Chloride 103 mmol/L (98-107); Creatine Kinase 73 U/L (30-135); Estimated Glomerular Filt Rate > 60.0 mL/min (>60); Globulin 2.6 g/dL (1.7-4.1); Glucose 122 mg/dL (80-110); HEMOLYSIS < 15 (0-50); Lipase 152 U/L (23-300); Potassium 3.5 mmol/L (3.4-5.1); Sodium 138 mmol/L (137-145); Total Protein 6.6 g/dL (6.3-8.2)
--- NOTE | 2019-11-17 17:42 | PC.NURSE ---
Pt reports feeling weak upon standing. Orthostatic VSS performed, charted.
[2019-11-17 17:51] LABS: Troponin I < 0.012 ng/mL (0.01-0.034)
--- NOTE | 2019-11-17 18:05 | ED.ARRPALP ---
HPI - Arrhythmia/Palpitations General Chief Complaint: Arrhythmia/Palpitations Stated Complaint: woozy,pain left arm,heart wonky Time Seen by Provider: 11/17/19 18:00 Source: patient Mode of arrival: Ambulatory Limitations: no limitations History of Present Illness HPI narrative: Approximately 5 weeks ago patient underwent a elective left total hip arthroplasty. Since then has been on 2 baby aspirin a day. She has been in physical therapy. States that today she was at physical therapy doing an exercise which she states that she became somewhat lightheaded. She denies any other symptoms to include palpitations or shortness of breath or headache. She states that the physical therapist took her blood pressure and the systolic number was 101. She does have a history of hypertension and takes medications for this. She states the symptoms improved. Throughout the day today she has had palpitations. She has had palpitations in the past. Has been diagnosed with PVCs. She states that today and really over the past couple days she has noticed increased frequency and duration of her PVCs. During these episodes she does not notice any shortness of breath or lightheadedness or chest pain. Also earlier today she had some tingling in her left arm which is what brought her to the emergency department. Currently she is symptom free Related Data Home Medications Medication Instructions Recorded Confirmed rosuvastatin 10 mg PO BEDTIME 10/02/19 11/17/19 aspirin 81 mg tablet,delayed 81 mg PO BID 10/30/19 11/17/19 release CoQ-10 1 cap PO DAILY 11/17/19 11/17/19 calcium carb-D3-mag ox-zinc ox 1 tab PO BID 11/17/19 11/17/19 diclofenac sodium 1 drp EYE-BOTH BID 11/17/19 11/17/19 ibuprofen 400 mg PO BEDTIME 11/17/19 11/17/19 sertraline 50 mg PO DAILY 11/17/19 11/17/19 triamterene-hydrochlorothiazid 1 tab PO DAILY 11/17/19 11/17/19 Previous Rx's Medication Instructions Recorded levothyroxine 112 mcg tablet 112 mcg PO QAM #90 tab 05/09/18 acetaminophen 650 mg PO TID #30 tab 10/18/19 Allergies Allergy/AdvReac Type Severity Reaction Status Date / Time omeprazole AdvReac Severe DRY MOUTH, Verified 10/30/19 09:19 changed taste sensations Review of Systems Constitutional Constitutional: Denies chills, Denies fever(s), Denies frequent falls, Denies headache(s) and Denies weakness ENT Ears, Nose, Mouth, and Throat: Denies vertigo, Denies headache(s) and Reports disequilibrium Cardiovascular Cardiovascular: Denies chest pain, Denies syncope, Reports rapid heart rate, Reports irregular heart rhythm, Denies leg edema, Reports lightheadedness, Reports palpitations, Denies dyspnea and Denies slow heart rate Respiratory Respiratory: Denies cough and Denies dyspnea Gastrointestinal Gastrointestinal: Denies abdominal pain, Denies nausea and Denies vomiting Genitourinary Genitourinary: Denies dysuria Musculoskeletal Musculoskeletal: Denies myalgias Integumentary/Breasts Skin/Breast: Denies lesions and Denies rash Neurologic Neurologic: Denies behavioral changes, Denies vertigo, Denies syncope, Denies frequent falls, Denies headache(s), Denies lack of coordination, Denies focal weakness, Denies other visual disturbances, Denies sensory deficit, Denies tremor(s), Reports disequilibrium and Denies weakness Psychiatric Psychiatric: Denies behavioral changes Endocrine Endocrine: Reports palpitations Hematologic/Lymphatic Hematologic/Lymphatic: Denies easy bleeding and Denies easy bruising Allergic/Immunologic Allergic/Immunologic: Denies urticaria Patient History Medical History Cyst (Acute) Depression (Chronic Unknown) GERD (gastroesophageal reflux disease) (Chronic Unknown) HTN (hypertension) (Acute) Hyperlipemia (Chronic Unknown) Hypothyroidism (Chronic Unknown) Osteopenia (Chronic ~12/2015) Palpitations (Acute) PVC's (premature ventricular contractions) (Acute) TIA (transient ischemic attack) (Resolved 2013) Surgical History Hx of section (Resolved Unknown) Hx of cholecystectomy (Resolved Unknown) Hx of tonsillectomy (Resolved Unknown) Status post ORIF of fracture of ankle (Resolved 03/2016) Family History Father Hypertension Mother Hypertension Sister Bipolar 1 disorder Social History household members: spouse Smoking Status: Never smoker alcohol intake: current Smoking Status: Never smoker alcohol intake frequency: holidays/special occasions only Substance Use Type: marijuana Exam Initial Vital Signs Initial Vital Signs: Vital Signs Temperature 97.5 F L 11/17/19 17:02 Pulse Rate 81 11/17/19 17:02 Respiratory Rate 18 11/17/19 17:02 Blood Pressure 137/64 11/17/19 17:02 Pulse Oximetry 98 11/17/19 17:02 Const General: cooperative, comfortable, well developed and well groomed Orientation: alert, awake and oriented x3 HENMT Head: normal to inspection and normocephalic Resp Effort & Inspection: normal respiratory effort Auscultation: clear to auscultation bilaterally Cardio Rate: regular rate Rhythm: regular rhythm Pulses: radial pulses present GI Inspection: non-distended Palpation: soft, No firm and No tender Back/Spine/Pelvis Back: normal to inspection Skin Lesions: no lesions Rashes: no rashes Neuro General: alert, awake and oriented x3 Cranial Nerves: CN's II-XI intact bilaterally Cognition: normal cognition Speech: speech normal Gait: normal gait Motor: muscle tone normal throughout Sensory Exam: no sensory deficits noted Extrem General: normal to inspection, capillary refill normal and No edema Psych Appearance: grossly normal and well kempt Course Orders Ordered: ED Orders 11/17/19 17:12 Complete Blood Count AUTO DIFF Stat Comprehensive Metabolic Panel Stat Lipase Stat Partial Thromboplastin Time Stat Prothrombin Time INR Stat Troponin & CK Cardiac Panel Stat 11/17/19 17:23 XR chest 1V Stat 11/17/19 19:15 Troponin I Stat Vital Signs Vital signs: Vital Signs - 8 hr 11/17/19 17:02 11/17/19 17:39 11/17/19 18:06 Temperature 97.5 F L Pulse Rate 81 65 Pulse Rate [Orthostatic Lying] 69 Pulse Rate [Orthostatic Sitting] 80 Pulse Rate [Orthostatic Standing] 79 Respiratory Rate 18 12 Blood Pressure 137/64 Blood Pressure [Left Arm] 134/70 Blood Pressure [Orthostatic Lying] 129/66 Blood Pressure [Orthostatic Sitting] 144/69 H Blood Pressure [Orthostatic Standing] 134/69 Pulse Oximetry 98 98 11/17/19 19:30 11/17/19 20:00 Temperature Pulse Rate 65 67 Pulse Rate [Orthostatic Lying] Pulse Rate [Orthostatic Sitting] Pulse Rate [Orthostatic Standing] Respiratory Rate 14 19 Blood Pressure Blood Pressure [Left Arm] 179/83 H 154/77 H Blood Pressure [Orthostatic Lying] Blood Pressure [Orthostatic Sitting] Blood Pressure [Orthostatic Standing] Pulse Oximetry 98 96 MDM - Arrhythmia/Palpitations Lab Data Attestation: I reviewed the patient's lab results. Result diagrams: 11/17/19 17:12 11/17/19 17:12 Labs: Lab Results 11/17/19 11/17/19 11/17/19 Range/Units 17:12 17:12 17:12 WBC 7.6 (4.5-11.0) X10^3/uL RBC 3.87 L (4.0-5.2) X10^6/uL Hgb 11.9 L (12.0-16.0) g/dL Hct 35.1 L (36-46) % MCV 90.6 (80-100) fL MCH 30.9 (26-34) PG MCHC 34.1 (30-36) % RDW 14.2 (11.6-14.8) % Plt Count 255 (150-400) X10^3/uL Neut % (Auto) 71.1 (50-75) % Lymph % (Auto) 18.7 L (25-40) % [place] % (Auto) 6.9 (3-14) % Eos % (Auto) 2.3 (2-4) % Baso % (Auto) 1.0 (0-2) % Neut # (Auto) 5400 (9612-1718) /uL Lymph # (Auto) 1400 (8894-9998) /uL [place] # (Auto) 500 (0-900) /uL Eos # (Auto) 200 (0-450) /uL Baso # (Auto) 100 (0-100) /uL PT 11.8 (10.1-12.7) SECONDS INR 1.0 (0.9-1.3) APTT 29 (26.4-36.2) SECONDS Sodium 138 (137-145) mmol/L Potassium 3.5 (3.4-5.1) mmol/L Chloride 103 (98-107) mmol/L Carbon Dioxide 26 (22-32) mmol/L BUN 22 H (7-17) mg/dL Creatinine 0.80 (0.52-1.04) mg/dL Estimated GFR > 60.0 (>60) mL/min BUN/Creatinine Ratio 27.5 H (6-22) Glucose 122 H (80-110) mg/dL Calcium 10.2 (8.4-10.2) mg/dL Total Bilirubin 0.4 (0.2-1.3) mg/dL AST 27 (14-36) IU/L ALT 15 (<35) IU/L Alkaline Phosphatase 113 (38-126) U/L Total Creatine Kinase 73 (30-135) U/L CK-MB (CK-2) TNP CK-MB (CK-2) Rel Index TNP Troponin I < 0.012 (0.01-0.034) ng/mL Total Protein 6.6 (6.3-8.2) g/dL Albumin 4.0 (3.5-5.0) g/dL Globulin 2.6 (1.7-4.1) g/dL Albumin/Globulin Ratio 1.5 (1.0-2.8) Lipase 152 (23-300) U/L 12/20/19 Range/Units 19:15 WBC (4.5-11.0) X10^3/uL RBC (4.0-5.2) X10^6/uL Hgb (12.0-16.0) g/dL Hct (36-46) % MCV (80-100) fL MCH (26-34) PG MCHC (30-36) % RDW (11.6-14.8) % Plt Count (150-400) X10^3/uL Neut % (Auto) (50-75) % Lymph % (Auto) (25-40) % [place] % (Auto) (3-14) % Eos % (Auto) (2-4) % Baso % (Auto) (0-2) % Neut # (Auto) (6598-8311) /uL Lymph # (Auto) (5645-0548) /uL [place] # (Auto) (0-900) /uL Eos # (Auto) (0-450) /uL Baso # (Auto) (0-100) /uL PT (10.1-12.7) SECONDS INR (0.9-1.3) APTT (26.4-36.2) SECONDS Sodium (137-145) mmol/L Potassium (3.4-5.1) mmol/L Chloride (98-107) mmol/L Carbon Dioxide (22-32) mmol/L BUN (7-17) mg/dL Creatinine (0.52-1.04) mg/dL Estimated GFR (>60) mL/min BUN/Creatinine Ratio (6-22) Glucose (80-110) mg/dL Calcium (8.4-10.2) mg/dL Total Bilirubin (0.2-1.3) mg/dL AST (14-36) IU/L ALT (<35) IU/L Alkaline Phosphatase (38-126) U/L Total Creatine Kinase (30-135) U/L CK-MB (CK-2) CK-MB (CK-2) Rel Index Troponin I < 0.012 (0.01-0.034) ng/mL Total Protein (6.3-8.2) g/dL Albumin (3.5-5.0) g/dL Globulin (1.7-4.1) g/dL Albumin/Globulin Ratio (1.0-2.8) Lipase (23-300) U/L Imaging Data Chest x-ray: Radiologist's impression: [address] [address] XRay Report Signed Patient: Martha Weeks R#: [id number] : 4Acct:[id number] Age/Sex: 74 / FDate of Service: 11/17/19 Loc: ED Accession Number: [id number] Procedure: XR chest 1V Ordering Provider: Leah Valles D.O. PROCEDURE: XR CHEST 1V INDICATIONS: chest pain TECHNIQUE: One view of the chest was acquired. COMPARISON: [facility], , CHEST 1 VIEW, 07/08/2015, 9:22. FINDINGS: Surgical changes and devices: None. Lungs and pleura: Lungs are clear. No pleural effusions or pneumothorax. Mediastinum: Mediastinal contours appear normal. Heart size is normal. Bones and chest wall: No suspicious bony lesions. Overlying soft tissues appear unremarkable. IMPRESSION: Normal for age, source of current chest pain symptoms is not seen. Dictated by: Silvestre Raman M.D. on 11/17/2019 at 18:29 Approved by: Silvestre Raman M.D. on 11/17/2019 at 18:29 ECG Data Attestation: I personally reviewed and interpreted this ECG as follows: Prior ECG tracings: not available for review Interpretation: Sinus rhythm Ventricular rate is 75 Normal axis Normal QRS Normal QTC No ST T wave changes MDM Narrative Medical decision making narrative: Patient has been asymptomatic since being here in the emergency department. Troponins are negative x2. EKG is unremarkable. Chest x-ray is unremarkable. Electrolytes unremarkable. Patient has been diagnosed with PVCs in the past and she states the palpitations she is feeling is what she has been told happen PVCs. We did discuss the possibility of atrial fibrillation. It does not appear that the palpitations are related to the lightheadedness that she had this morning. I do have low suspicion for ACS. Low suspicion for CVA or TIA. We did discuss that she should talk with her primary doctor about potentially having a Holter monitor for further evaluation. We'd also discussed following up with her primary about having a stress test. She was given return precautions and follow-up instructions. She expressed understanding and agreement with plan. Discharge Plan Departure Patient Disposition: Home Clinical Impression: Palpitations, Lightheadedness Instructions: Arrhythmias Activity Restrictions/Additional Instructions: Continue all of your medications as directed. I do recommend that you contact your primary provider to discuss the indications for a Holter monitor and stress test. Return to the emergency department for any new or worsening symptoms Prescriptions: No Action levothyroxine [Synthroid] 112 mcg tablet 112 mcg PO QAM Qty: 90 RF: 3 aspirin [Lo-Dose Aspirin] 81 mg tablet,delayed release (DR/EC) 81 mg PO BID RF: 0 diclofenac sodium 0.1 % drops 1 drp EYE-BOTH BID RF: 0 sertraline 50 mg tablet 50 mg PO DAILY RF: 0 triamterene-hydrochlorothiazid 37.5 MG/25 MG tablet 1 tab PO DAILY RF: 0 ibuprofen 200 mg Tablet 400 mg PO BEDTIME RF: 0 calcium carb-D3-mag ox-zinc ox 333 mg-133 unit -133 mg-5 mg Tablet 1 tab PO BID RF: 0 CoQ-10 1 cap PO DAILY RF: 0 rosuvastatin 10 mg Tablet 10 mg PO BEDTIME RF: 0 acetaminophen 325 mg Tablet 650 mg PO TID Qty: 30 RF: 0 Referrals: Gila Katz ARNP [Primary Care Provider] -
[2019-11-17 18:06] VITALS: BP 134/70; PULSE 65; RESP 12; O2SAT 98
[2019-11-17 19:30] VITALS: BP 179/83; PULSE 65; RESP 14; O2SAT 98
[2019-11-17 20:00] VITALS: BP 154/77; PULSE 67; RESP 19; O2SAT 96
[2019-11-17 20:02] LABS: Troponin I < 0.012 ng/mL (0.01-0.034)
== END 2019-11-17 20:39 | disposition home or self-care (01) ==
PROVIDERS: Emergency Medicine; Emergency Provider Emergency Medicine; PCP Nurse Practitioner
DX: R00.2 Palpitations (principal); R42 Dizziness and giddiness
CPT/HCPCS: 36415; 71045; 80053; 82550; 83690; 84484; 85025; 85610; 85730; 93005; 99284; 99285

== ENCOUNTER → 2019-11-23 07:44 | Outpatient (CLI) | payer MEDICARE, OTHER, SELFPAY ==
[2019-10-16 10:42] VITALS: BMI 30.9
[2019-11-23 09:34] LABS: Thyroid Stimulating Hormone 2.47 uIU/mL (0.47-4.68)
== END ==
PROVIDERS: PCP Nurse Practitioner; Visit Provider Nurse Practitioner
DX: E03.9 Hypothyroidism, unspecified (principal); E78.5 Hyperlipidemia, unspecified; F32.9 Major depressive disorder, single episode, unspecified; I10 Essential (primary) hypertension; Z79.899 Other long term (current) drug therapy
CPT/HCPCS: 36415; 84443; 86803

== ENCOUNTER → 2019-12-04 10:13 | Outpatient (CLI) | payer MEDICARE, OTHER, SELFPAY ==
[2019-10-16 10:42] VITALS: BMI 30.9
== END ==
PROVIDERS: PCP Nurse Practitioner; Visit Provider Nurse Practitioner
DX: M81.0 Age-related osteoporosis without current pathological fracture (principal); Z78.0 Asymptomatic menopausal state; E07.9 Disorder of thyroid, unspecified
CPT/HCPCS: 77080; 77081

== ENCOUNTER → 2019-12-07 09:26 | Outpatient (CLI) | payer MEDICARE, OTHER, SELFPAY ==
[2019-10-16 10:42] VITALS: BMI 30.9
--- NOTE | 2020-01-01 16:44 | P.HOLT.S_ITS ---
[employer] Report Referral & Results Date Patient Seen: 12/07/19 Requesting provider: Gila Katz Indication: Palpitations Duration of monitoring (days): 14 Diary information: There were 9 patient triggered events and 7 patient diary entries These events/entries were associated with sinus rhythm and ventricular ectopic beats Data: Minimum heart rate identified was 47 beats per minute at 03:24 on 12/16/2019 Maximum sinus heart rate was 124 beats per minute at 18:18 on 12/10/2019 Maximum overall heart rate was 152 beats per minute at 09:08 on 12/10/2019 during a 9 beat run of SVT/atrial tachycardia Less than 1% of identified beats were supraventricular ectopic in origin Patient had occasional PVCs comprising about 2.6% of identified beats There were 5 runs of SVT/atrial tachycardia longest lasting 11 beats at 106 beats per minute which was probably atrial tachycardia rather than true SVT Impression: No serious dysrhythmias identified on this study. Patient's symptom of palpitations possibly related to occasional PVCs Clinical correlation suggested
== END ==
PROVIDERS: PCP Nurse Practitioner; Visit Provider Nurse Practitioner
DX: R00.2 Palpitations (principal)
CPT/HCPCS: 0296T; 0298T

== ENCOUNTER → 2019-12-21 13:39 | Outpatient (CLI) | payer MEDICARE, OTHER, SELFPAY ==
[2019-10-16 10:42] VITALS: BMI 30.9
--- NOTE | 2019-12-21 15:02 | PM.TREADMILL ---
Cardiac Stress Test Report Referral & Results Date Patient Seen: 12/21/19 Time Patient Seen: 15:02 Requesting provider: Gila Katz Rest ECG: Unremarkable Procedure Note: After both written and verbal informed consent the patient had an IV started by the diagnostic imaging RN, and then was hooked up to the treadmill monitoring system. The Lexiscan material, and then the Cardiolite tracer, were administered sequentially. An additional 3 min was spent monitoring the patient while supine on the gurney. The patient had a normal response to all infused materials. Impression: Normal response as above. Please see perfusion imaging report for details regarding possible ischemia Please note: Actual ECG tracings can be found in the PACS system.
--- NOTE | 2019-12-25 18:21 | DI.NM.S_ITS ---
DATE OF SERVICE: 12/21/2019 PROCEDURE: Pharmacological perfusion study. INDICATION: Chest pain, palpitations. RADIOPHARMACEUTICAL: 25.1 millicurie of technetium-99m Myoview IV was injected at stress and 26.1 millicurie technetium-99m IV was injected at rest. FINDINGS: CARDIAC STRESS:: The patient underwent IV Lexiscan perfusion study under the supervision of the attending staff using a standard IV Lexiscan as per protocol. She remained hemodynamically stable. No significant symptoms reported. Baseline EKG revealed sinus rhythm with low-voltage complexes in chest leads. During stress, there was significant artifacts. However, in the immediate recovery, no convincing ischemic changes. There were nonspecific ST-T changes. No significant sustained arrhythmias seen. RAW DATA:: Breast shadow was seen. GATED STUDY:: Resting LV ejection fraction 77 percent and stress LV ejection fraction 89 percent without any significant wall motion abnormalities. Resting end-diastolic volume 71 mL. No transient ischemic dilatation. TID ratio is 0.97, which is within normal limits. Lung-heart ratio 0.19, which is within normal limits. MYOCARDIAL PERFUSION: Stress supine, resting supine and stress prone images were compared to each other. Stress supine and resting supine images reveal small-sized mild decreased perfusion of the distal anterior wall, as well as distal anterior septum, which got resolved during prone images suggestive of breast tissue attenuation artifact. No convincing ischemia or infarction pattern seen. CONCLUSION: 1. I would call this study a normal myocardial perfusion study with evidence of breast tissue attenuation artifact, as stated above, which got resolved during prone images. 2. Overall LV function is preserved. 3. Overall, this is a low risk myocardial perfusion study. 4. Thee patient had exercise perfusion study in September 17, 2015. At that time, she walked on Chaz protocol for 5 minutes and 32 seconds and had similar perfusion defect. 5. This time, the patient had a pharmacological perfusion study. DesiMartha - CLIFF/thai/corky doc#: [id number]/job#: [id number] dd: 12/25/2019 13:15:00 dt: 12/25/2019 17:55:00 DICTATING MD/COPIES TO: Prasanna Renee MD COPIES MNE: [place];
== END ==
PROVIDERS: PCP Nurse Practitioner; Visit Provider Nurse Practitioner
DX: R00.2 Palpitations (principal); R07.9 Chest pain, unspecified
CPT/HCPCS: 78452; 93016; 93017; 93018; A9502; J2785

== ENCOUNTER → 2020-06-11 13:53 | Outpatient (CLI) | payer MEDICARE, OTHER, SELFPAY ==
[2019-10-16 10:42] VITALS: BMI 30.9
[2020-06-11 14:54] LABS: Add Manual Diff / Slide Review NO; Basophils Absolute Auto 0 /uL (0-100); Basophils Percent Auto 0.9 % (0-2); Eosinophils Absolute Auto 100 /uL (0-450); Eosinophils Percent Auto 2.3 % (2-4); Hematocrit 39.8 % (36-46); Hemoglobin 13.6 g/dL (12.0-16.0); Lymphocytes Absolute Auto 1400 /uL (1100-4500); Lymphocytes Percent Auto 24.7 % (25-40); Mean Corpuscular HGB Conc 34.1 % (30-36); Mean Corpuscular Hemoglobin 30.7 PG (26-34); Mean Corpuscular Volume 90.1 fL (80-100); Monocytes Absolute Auto 300 /uL (0-900); Monocytes Percent Auto 6.3 % (3-14); Neutrophils Absolute Auto 3700 /uL (1500-7000); Neutrophils Percent Auto 65.8 % (50-75); Platelet Count 208 X10^3/uL (150-400); Red Blood Cell Count 4.42 X10^6/uL (4.0-5.2); Red Cell Distribution Width 14.3 % (11.6-14.8); White Blood Cell Count 5.6 X10^3/uL (4.5-11.0)
[2020-06-11 15:19] LABS: Albumin 4.3 g/dL (3.5-5.0); Albumin Globulin Ratio 1.6 (1.0-2.8); Alkaline Phosphatase 82 U/L (38-126); Aspartate Aminotransferase 38 IU/L (14-36); BUN Creatinine Ratio 19.2 (6-22); Bilirubin Total 0.4 mg/dL (0.2-1.3); Blood Urea Nitrogen 20 mg/dL (7-17); Calcium 9.9 mg/dL (8.4-10.2); Carbon Dioxide 30 mmol/L (22-32); Chloride 104 mmol/L (98-107); Estimated Glomerular Filt Rate 51.7 mL/min (>60); Globulin 2.7 g/dL (1.7-4.1); Glucose 103 mg/dL (80-110); HEMOLYSIS < 15 (0-50); Potassium 4.4 mmol/L (3.4-5.1); Sodium 137 mmol/L (137-145)
[2020-06-11 15:59] LABS: Appearance Urine UA CLEAR; Bilirubin Urine UA NEGATIVE (NEGATIVE); Color Urine UA YELLOW; Glucose Urine UA NEGATIVE (Negative); Ketones Urine UA NEGATIVE (NEGATIVE); Leukocyte Esterase Urine UA TRACE (NEGATIVE); Nitrite Urine UA NEGATIVE (Negative); Occult Blood Urine UA NEGATIVE (Negative); Protein Urine UA NEGATIVE (Negative); Urobilinogen Urine UA 0.2 E.U./dL (0.2)
[2020-06-11 16:10] LABS: RBC Urine None Seen (0-5/HPF); Squamous Epithelial Cell Urine 1-5 /HPF (0-5/HPF); WBC Urine 1-5/HPF (0-5/HPF)
[2020-06-11 16:11] LABS: Bacteria Urine Occasional (0-1); Culture Indicated Urine Specimen Cultured
[2020-06-12 14:38] LABS: Alanine Aminotransferase 22 IU/L (<35)
== END ==
PROVIDERS: PCP Nurse Practitioner; Referring Provider Physician Assistant; Visit Provider Physician Assistant
DX: R42 Dizziness and giddiness (principal)
CPT/HCPCS: 36415; 80053; 81003; 81015; 85025; 87086

== ENCOUNTER → 2020-10-25 07:36 | Outpatient (CLI) | payer MEDICARE, OTHER, SELFPAY ==
[2019-10-16 10:42] VITALS: BMI 30.9
[2020-10-25 08:01] LABS: Add Manual Diff / Slide Review NO; Basophils Absolute Auto 0 /uL (0-100); Eosinophils Absolute Auto 100 /uL (0-450); Eosinophils Percent Auto 2.3 % (2-4); Hematocrit 39.9 % (36-46); Hemoglobin 13.4 g/dL (12.0-16.0); Lymphocytes Absolute Auto 1300 /uL (1100-4500); Lymphocytes Percent Auto 28.7 % (25-40); Mean Corpuscular HGB Conc 33.6 % (30-36); Mean Corpuscular Hemoglobin 29.9 PG (26-34); Mean Corpuscular Volume 88.8 fL (80-100); Monocytes Absolute Auto 300 /uL (0-900); Monocytes Percent Auto 6.5 % (3-14); Neutrophils Absolute Auto 2900 /uL (1500-7000); Neutrophils Percent Auto 61.5 % (50-75); Platelet Count 202 X10^3/uL (150-400); White Blood Cell Count 4.7 X10^3/uL (4.5-11.0)
[2020-10-25 08:26] LABS: Blood Urea Nitrogen 18 mg/dL (7-17); Carbon Dioxide 32 mmol/L (22-32); Chloride 103 mmol/L (98-107); Cholesterol 190 mg/dL (140-199); Estimated Glomerular Filt Rate > 60.0 mL/min (>60); Glucose 104 mg/dL (80-110); HDL Cholesterol 69 mg/dL (40-60); HEMOLYSIS < 15 (0-50); LDL Cholesterol Calculated 89 mg/dL (<100); Potassium 4.1 mmol/L (3.4-5.1); Sodium 136 mmol/L (137-145); Triglycerides 161 mg/dL (35-150)
[2020-10-25 08:43] LABS: Free T4, Direct Thyroxine 1.36 ng/dL (0.78-2.19)
[2020-10-25 08:56] LABS: Thyroid Stimulating Hormone 1.15 uIU/mL (0.47-4.68)
== END ==
PROVIDERS: PCP Family Medicine; Referring Provider Family Medicine; Visit Provider Family Medicine
DX: E03.9 Hypothyroidism, unspecified (principal); E78.5 Hyperlipidemia, unspecified; I10 Essential (primary) hypertension
CPT/HCPCS: 36415; 80048; 80061; 84439; 84443; 84481; 85025

== ENCOUNTER 2021-01-24 11:04 | Emergency (ER) | payer MEDICARE, OTHER, SELFPAY ==
[2019-10-16 10:42] VITALS: BMI 30.9
[2021-01-24] VITALS (16 sets, daily range): BP systolic 127–155; BP diastolic 61–98; PULSE 56–75; RESP 11–28; TEMP 36.4; O2SAT 96–100
--- NOTE | 2021-01-24 11:26 | ED.DIZZY ---
HPI - Dizziness <CLEVE Campoverde - Last Filed: 01/24/21 16:57> General Chief Complaint: Dizziness Stated Complaint: dizziness. Sent from [facility] Time Seen by Provider: 01/24/21 11:10 Source: patient Mode of arrival: Ambulatory Limitations: no limitations History of Present Illness HPI Narrative: This is a 75 year female, nonsmoker, who has past medical history significant for PVCs, hyperlipidemia, hypothyroidism, depression presents to ED with spouse with chief complain of 2 week duration of dizziness. Patient reports dizziness worsens when she is lying position to sitting up and sometimes with moving her head. Patient is nauseated but no vomiting. Patient denies history of stroke or AFib. In EMR, has history of TIA. Patient is not currently on blood thinner. Patient had not taken any medications for this. She is currently seeing Dr. Guo in getting treatment for bilateral arm pain with manual manipulation and has been exercising her bilateral shoulders with stretching. Patient denies chest pain, dyspnea, abdominal pain, back pain, known recent exposure to COVID. Patient reports she has intermittent ringing in her ears and has been hearing swooshi sounds in bilateral ears. Related Data Home Medications Medication Instructions Recorded Confirmed CoQ-10 1 cap PO DAILY 11/17/19 12/03/20 calcium carb-D3-mag ox-zinc ox 1 tab PO BID 11/17/19 12/03/20 sertraline 50 mg PO DAILY 11/17/19 12/03/20 Cheleated Magnesium Glycinate PO BID 10/03/20 12/03/20 acetylcarnitine 500 mg capsule 500 mg PO DAILY cap 10/03/20 12/03/20 esomeprazole magnesium 20 mg 20 mg PO DAILY 10/03/20 12/03/20 capsule,delayed release folic acid-vit B6-vit B12 0.8 1 tab PO DAILY 10/03/20 12/03/20 mg-50 mg-100 mcg tablet potassium gluconate 550 mg (90 mg) 550 mg PO DAILY 10/03/20 12/03/20 tablet Previous Rx's Medication Instructions Recorded rosuvastatin 10 mg tablet 10 mg PO BEDTIME #90 tab 04/15/20 levothyroxine 112 mcg tablet 112 mcg PO QAM #90 tab 11/05/20 triamterene 37.5 See Rx Instructions .ROUTE 12/11/20 mg-hydrochlorothiazide 25 mg tablet .COMPLEX #90 tab meclizine 25 mg PO BID PRN #20 tab 01/24/21 Allergies Allergy/AdvReac Type Severity Reaction Status Date / Time omeprazole AdvReac Severe DRY MOUTH, Verified 12/03/20 09:32 changed taste sensations Review of Systems <CLEVE Campoverde - Last Filed: 01/24/21 16:57> Review of Systems Narrative: General: Denies fever, chills, fatigue, malaise, sweats. HEENT: Denies sinus pain, ear pain, sore throat, difficulty swallowing, dizziness. Respiratory: Denies dyspnea, cough, wheezing, hemoptysis, sputum. Cardiovascular: Denies chest pain, palpitations, orthopnea, edema. Gastrointestinal: Denies nausea, vomiting, abdominal pain, diarrhea, constipation, melena. : Denies dysuria, frequency, incontinence, hematuria, urinary retention. Musculoskeletal: Denies weakness, joint pain or bony pain. Skin: Denies rash, skin lesions, or other. Neurologic: See HPI Psychiatric: No concerning psychosocial issues. 12-point review of systems is negative except for those stated above. Patient History <CLEVE Campoverde - Last Filed: 01/24/21 16:57> Medical History Bilateral arm pain Bilateral hand numbness Cervical somatic dysfunction Chronic pain of left lower extremity Cranial somatic dysfunction Cyst Depression (Unknown) GERD (gastroesophageal reflux disease) (Unknown) HTN (hypertension) Hyperlipemia (Unknown) Hypothyroidism (Unknown) Neck stiffness Osteopenia (~12/2015) Osteoporosis Palpitations PVC's (premature ventricular contractions) Segmental and somatic dysfunction of rib cage Thoracic region somatic dysfunction TIA (transient ischemic attack) (2013) Upper extremity somatic dysfunction Surgical History History of left hip replacement Hx of section (Unknown) Hx of cholecystectomy (Unknown) Hx of tonsillectomy (Unknown) Status post ORIF of fracture of ankle (03/2016) Family History Father Hypertension Mother Hypertension Sister Bipolar 1 disorder Social History household members: spouse Smoking Status: Never smoker alcohol intake: current Smoking Status: Never smoker alcohol intake frequency: holidays/special occasions only Substance Use Type: marijuana Exam <CLEVE Campoverde - Last Filed: 01/24/21 16:57> Narrative Exam Narrative: GEN: Alert, oriented x 3, well appearing and nourished, and in no acute distress. Head: Normal cephalic, atraumatic. No scalp or temporal tenderness, palpable mass or rash. EYES: Pupils are 2 mm bilaterally equal, round, and reactive to light and accommodation. Extraocular muscles are intact bilaterally. There is no subconjunctival hemorrhage, exudate and sclera non-icteric. No vertical nystagmus. Slightly increased dizziness with right-sided head turning and mild lateral nystagmus. ENT: Bilateral auditory canals and tympanic membranes clear. Hearing grossly intact. Nose without bleeding, purulent discharge, septal hematoma or deviation. Turbinate without erythema or swelling. Facial sinuses nontender to palpate. Mucous membrane moist, no mucosal lesion. Throat without erythema, tonsillar hypertrophy or exudate. Uvula in midline, airway patent. Neck: Trachea in midline. No JVD, non-tender without lymphadenopathy. No masses or thyroid megaly. Supple, non-tender and no meningeal signs. CARDIAC: Normal regular rate and rhythm without murmurs, gallops, or rubs. No chest wall tenderness. No peripheral edema, cyanosis or pallor. Capillary refill is less than 2 seconds. No carotid bruits. RESPIRATORY: Lungs are cleat to auscultate bilaterally. No cough, wheezes, rales, or rhonchi. No stridor, respiratory distress, increase work of breathing, or accessary muscle used. ABD: Abdomen soft, nontender and non-distended. No guarding or rebound tenderness to palpate. Bowel sounds are normal in all 4 quadrants. There is no palpable masses or organomegaly. EXT: Full painless ROM of all extremities with no loss of sensation, strength, effusion or edema. SKIN: Warm, dry, normal color for patient. No erythema, lesions or rash. BACK: Nontender without deformity or crepitance. No flank tenderness. NEUROLOGICAL: Alert and oriented to place, time and person. No facial droops, dysphasia. CN II-XII intact. Strength and sensation symmetric and intact throughout. Cerebellar testing normal. PSYCHIATRIC: Good judgement and reason, without hallucinations, abnormal affect or abnormal behaviors during the examination. Patient is not suicidal. Initial Vital Signs Initial Vital Signs: Vital Signs Temperature 97.6 F 01/24/21 11:05 Pulse Rate 75 01/24/21 11:05 Respiratory Rate 14 01/24/21 11:05 Blood Pressure 153/68 H 01/24/21 11:05 Pulse Oximetry 99 01/24/21 11:05 <Ravi Gant DO - Last Filed: 01/24/21 17:58> Initial Vital Signs Initial Vital Signs: Vital Signs Temperature 97.6 F 01/24/21 11:05 Pulse Rate 75 01/24/21 11:05 Respiratory Rate 14 01/24/21 11:05 Blood Pressure 153/68 H 01/24/21 11:05 Pulse Oximetry 99 01/24/21 11:05 Scores <CLEVE Campoverde - Last Filed: 01/24/21 16:57> GCS [place] coma scale eye opening: Spontaneous [place] coma scale verbal response: Orientated [place] coma scale motor response: Obey commands [place] coma scale total score: 15 NIH Stroke Scale Level of Conciousness: Alert, keenly responsive Ask month/age: Answers both questions correctly. Open/close eyes, close hand: Performs both tasks correctly Best gaze horizontal: Normal Visual ramirez: No visual loss Facial palsy: Normal symetrical movement Left arm drift: No drift for full 10 sec Right arm drift: No drift for full 10 sec Left leg drift: No drift for full 5 sec Right leg drift: No drift for full 5 sec Limb ataxia: Absent Sensory on face/arms/legs: Normal, no sensory loss Best language: No aphasia, normal Dysarthria: Normal Extinction or inattention: No abnormality Total NIH Stroke scale score: 0 Course <CLEVE Campoverde - Last Filed: 01/24/21 16:57> Orders Ordered: ED Orders 01/24/21 11:21 EKG-12 Lead Stat 01/24/21 11:28 Complete Blood Count AUTO DIFF Stat Comprehensive Metabolic Panel Stat Prothrombin Time INR Stat Troponin I Stat 01/24/21 11:32 XR chest 1V Stat 01/24/21 11:39 CT head/brain wo con Stat 01/24/21 12:29 MR stroke Stat Discontinued Medications Meclizine HCl (Meclizine Hcl 12.5 Mg Tablet) 25 mg PO NOW ONE Stop: 01/24/21 12:24 Last Admin: 01/24/21 12:29 Dose: 25 mg Documented by: ANGELA Reevaluation(s) Reevaluation #1: Patient reports dizziness and difficulty balance when she moved from supine to standing position but this had subsided after a brief period and ambulated to bathroom in stable gait and back to bed. Informed the patient for pending MRI at 1500. Time: 14:00 Vital Signs Vital signs: Vital Signs - 8 hr 01/24/21 11:05 01/24/21 11:45 01/24/21 11:46 Temperature 97.6 F Pulse Rate 75 69 Pulse Rate [Orthostatic Lying] 60 Pulse Rate [Orthostatic Standing] 68 Respiratory Rate 14 Blood Pressure 153/68 H Blood Pressure [Orthostatic Lying] 155/72 H Blood Pressure [Orthostatic Standing] 147/69 H Pulse Oximetry 99 98 01/24/21 12:09 01/24/21 12:10 01/24/21 12:30 Temperature Pulse Rate 66 60 Pulse Rate [Orthostatic Lying] Pulse Rate [Orthostatic Standing] Respiratory Rate 18 22 Blood Pressure 134/98 H Blood Pressure [Orthostatic Lying] Blood Pressure [Orthostatic Standing] Pulse Oximetry 96 97 98 01/24/21 13:00 01/24/21 13:51 01/24/21 13:53 Temperature Pulse Rate 59 L 62 56 L Pulse Rate [Orthostatic Lying] Pulse Rate [Orthostatic Standing] Respiratory Rate 26 H 11 L Blood Pressure 151/71 H Blood Pressure [Orthostatic Lying] Blood Pressure [Orthostatic Standing] Pulse Oximetry 99 99 100 01/24/21 14:04 01/24/21 14:06 01/24/21 14:30 Temperature Pulse Rate 64 65 62 Pulse Rate [Orthostatic Lying] Pulse Rate [Orthostatic Standing] Respiratory Rate 12 25 H 18 Blood Pressure 127/61 Blood Pressure [Orthostatic Lying] Blood Pressure [Orthostatic Standing] Pulse Oximetry 98 98 98 01/24/21 16:16 01/24/21 16:17 01/24/21 16:30 Temperature Pulse Rate 74 75 73 Pulse Rate [Orthostatic Lying] Pulse Rate [Orthostatic Standing] Respiratory Rate 20 28 H Blood Pressure 143/67 H Blood Pressure [Orthostatic Lying] Blood Pressure [Orthostatic Standing] Pulse Oximetry 98 97 01/24/21 16:31 Temperature Pulse Rate 69 Pulse Rate [Orthostatic Lying] Pulse Rate [Orthostatic Standing] Respiratory Rate 21 Blood Pressure 138/82 Blood Pressure [Orthostatic Lying] Blood Pressure [Orthostatic Standing] Pulse Oximetry <Ravi Gant, DO - Last Filed: 01/24/21 17:58> Orders Ordered: ED Orders 01/24/21 11:21 EKG-12 Lead Stat 01/24/21 11:28 Complete Blood Count AUTO DIFF Stat Comprehensive Metabolic Panel Stat Prothrombin Time INR Stat Troponin I Stat 01/24/21 11:32 XR chest 1V Stat 01/24/21 11:39 CT head/brain wo con Stat 01/24/21 12:29 MR stroke Stat Discontinued Medications Meclizine HCl (Meclizine Hcl 12.5 Mg Tablet) 25 mg PO NOW ONE Stop: 01/24/21 12:24 Last Admin: 01/24/21 12:29 Dose: 25 mg Documented by: ANGELA Vital Signs Vital signs: Vital Signs - 8 hr 01/24/21 11:05 01/24/21 11:45 01/24/21 11:46 Temperature 97.6 F Pulse Rate 75 69 Pulse Rate [Orthostatic Lying] 60 Pulse Rate [Orthostatic Standing] 68 Respiratory Rate 14 Blood Pressure 153/68 H Blood Pressure [Orthostatic Lying] 155/72 H Blood Pressure [Orthostatic Standing] 147/69 H Pulse Oximetry 99 98 01/24/21 12:09 01/24/21 12:10 01/24/21 12:30 Temperature Pulse Rate 66 60 Pulse Rate [Orthostatic Lying] Pulse Rate [Orthostatic Standing] Respiratory Rate 18 22 Blood Pressure 134/98 H Blood Pressure [Orthostatic Lying] Blood Pressure [Orthostatic Standing] Pulse Oximetry 96 97 98 01/24/21 13:00 01/24/21 13:51 01/24/21 13:53 Temperature Pulse Rate 59 L 62 56 L Pulse Rate [Orthostatic Lying] Pulse Rate [Orthostatic Standing] Respiratory Rate 26 H 11 L Blood Pressure 151/71 H Blood Pressure [Orthostatic Lying] Blood Pressure [Orthostatic Standing] Pulse Oximetry 99 99 100 01/24/21 14:04 01/24/21 14:06 01/24/21 14:30 Temperature Pulse Rate 64 65 62 Pulse Rate [Orthostatic Lying] Pulse Rate [Orthostatic Standing] Respiratory Rate 12 25 H 18 Blood Pressure 127/61 Blood Pressure [Orthostatic Lying] Blood Pressure [Orthostatic Standing] Pulse Oximetry 98 98 98 01/24/21 16:16 01/24/21 16:17 01/24/21 16:30 Temperature Pulse Rate 74 75 73 Pulse Rate [Orthostatic Lying] Pulse Rate [Orthostatic Standing] Respiratory Rate 20 28 H Blood Pressure 143/67 H Blood Pressure [Orthostatic Lying] Blood Pressure [Orthostatic Standing] Pulse Oximetry 98 97 01/24/21 16:31 Temperature Pulse Rate 69 Pulse Rate [Orthostatic Lying] Pulse Rate [Orthostatic Standing] Respiratory Rate 21 Blood Pressure 138/82 Blood Pressure [Orthostatic Lying] Blood Pressure [Orthostatic Standing] Pulse Oximetry MDM - Dizziness <Naeem PatrickGiancarloCLEVE - Last Filed: 01/24/21 16:57> Differential Diagnosis Differential diagnosis: Likely benign paroxysmal positional vertigo, orthostatic hypotension, vertebral basilar insufficiency, cerebrovascular accident, transient cerebral ischemia and other (meniere's disease, arrhythmia, ACS, anemia) Medical Records Attestation: I reviewed the patient's medical records. Lab Data Attestation: I reviewed the patient's lab results. Result diagrams: 01/24/21 11:28 01/24/21 11:28 Labs: Lab Results 01/24/21 01/24/21 01/24/21 Range/Units 11:28 11:28 11:28 WBC 5.2 (4.5-11.0) X10^3/uL RBC 3.84 L (4.0-5.2) X10^6/uL Hgb 11.6 L (12.0-16.0) g/dL Hct 34.4 L (36-46) % MCV 89.5 (80-100) fL MCH 30.1 (26-34) PG MCHC 33.6 (30-36) % RDW 14.1 (11.6-14.8) % Plt Count 205 (150-400) X10^3/uL Neut % (Auto) 66.0 (50-75) % Lymph % (Auto) 26.3 (25-40) % [place] % (Auto) 5.3 (3-14) % Eos % (Auto) 1.6 L (2-4) % Baso % (Auto) 0.8 (0-2) % Neut # (Auto) 3500 (3361-0199) /uL Lymph # (Auto) 1400 (9309-1250) /uL [place] # (Auto) 300 (0-900) /uL Eos # (Auto) 100 (0-450) /uL Baso # (Auto) 0 (0-100) /uL PT 11.8 (10.1-12.7) SECONDS INR 1.0 (0.9-1.3) Sodium 136 L (137-145) mmol/L Potassium 3.6 (3.4-5.1) mmol/L Chloride 102 (98-107) mmol/L Carbon Dioxide 30 (22-32) mmol/L BUN 19 H (7-17) mg/dL Creatinine 0.72 (0.52-1.04) mg/dL Estimated GFR > 60.0 (>60) mL/min BUN/Creatinine Ratio 26.4 H (6-22) Glucose 118 H (80-110) mg/dL Calcium 9.8 (8.4-10.2) mg/dL Total Bilirubin 0.3 (0.2-1.3) mg/dL AST 33 (14-36) IU/L ALT 21 (<35) IU/L Alkaline Phosphatase 78 (38-126) U/L Troponin I < 0.012 (0.01-0.034) ng/mL Total Protein 6.5 (6.3-8.2) g/dL Albumin 3.9 (3.5-5.0) g/dL Globulin 2.6 (1.7-4.1) g/dL Albumin/Globulin Ratio 1.5 (1.0-2.8) Point of Care Testing Glucose POC 121 Urine Dip Bedside Urine Glucose Negative Bedside Urine Bilirubin - Negative Bedside Urine Ketone - Negative Urine Specific [place] 1.015 Bedside Urine Occult Blood - Negative Bedside Urine pH 7.5 Bedside Urine Protein - Negative Bedside Urine Urobilinogen - Negative Bedside Urine Nitrite - Negative Bedside Urine Leukocytes - Negative Esterase Imaging Data CT scan - head: Radiologist's Impression: [address] [id number] Scan ReportSigned Patient: Martha Weeks RICHIE#: [id number]: 4Acct:[id number]/Sex: 75 / FDate of Service: 01/24/21Loc: EDAccession Number: [id number] Procedure: CT head/brain wo con Ordering Provider: Naeem Contreras PROCEDURE: CT HEAD/BRAIN WO CON INDICATIONS: dizziness TECHNIQUE: Noncontrast 4.5 mm thick angled axial sections acquired from the foramen magnum to the vertex, with coronal and sagittal reformats. For radiation dose reduction, the following was used: automated exposure control, adjustment of mA and/or kV according to patient size. COMPARISON: [facility], CT, HEAD WITHOUT CONTRAST, 04/19/2014, 10:41. [facility], MR, MR BRAIN WITH/WITHOUT CONTRAST, 11/17/2018, 16:22. FINDINGS: Image quality: Excellent. CSF spaces: Basal cisterns are patent. No extra-axial fluid collections. The ventricles are symmetric in size and shape. Brain: No intracranial bleeds or masses. There is cerebral volume loss for age, with resultant ventricular and sulcal prominence. There are periventricular and deep white matter chronic small vessel ischemic changes. There is intracranial internal carotid artery atherosclerosis. Skull and face: Calvarium and visualized facial bones appear intact, without suspicious lesions. Incidental note is made of hyperostosis frontalis. This is not considered to be pathologic in a woman of this age. Sinuses: Visualized sinuses and mastoids are clear. IMPRESSION: Unremarkable intracranial study for age, without an imaging explanation found for the patient's presenting symptoms. Dictated by: Shun Max M.D. on 01/24/2021 at 11:12 Approved by: Shun Max M.D. on 01/24/2021 at 11:13 Chest x-ray: Radiologist's Impression: [address] [id number] ReportSigned Patient: Martha Weeks JMR#: [id number]: 1944cct:[id number]/Sex: 75 / FDate of Service: 01/24/21Loc: EDAccession Number: [id number] Procedure: XR chest 1V Ordering Provider: Naeem Contreras PROCEDURE: XR CHEST 1V INDICATIONS: dizziness TECHNIQUE: One view of the chest was acquired. COMPARISON: [facility], CR, XR CHEST 1V, 11/17/2019, 17:36. FINDINGS: Surgical changes and devices: None. Lungs and pleura: Lungs are clear. No pleural effusions or pneumothorax. Mediastinum: Mediastinal contours appear normal. Heart size is normal. Bones and chest wall: No suspicious bony lesions. Overlying soft tissues appear unremarkable. IMPRESSION: No acute pulmonary process. Dictated by: Amarilis Beth M.D. on 01/24/2021 at 11:38 Approved by: Amarilis Beth M.D. on 01/24/2021 at 11:38 MR-Stroke test: Radiologist's Impression: [address] [id number] Resonance ReportSigned Patient: Martha Weeks JMR#: [id number]: 4Acct:[id number]/Sex: 75 / FDate of Service: 01/24/21Loc: EDAccession Number: [id number] Procedure: MR stroke Ordering Provider: Naeem Contreras PROCEDURE: MR STROKE Pre- and post-contrast brain MRI, non-contrast brain MR angiogram, pre- and postcontrast neck MR angiogram INDICATIONS: r/o stroke, dizziness TECHNIQUE: Brain: Noncontrast axial T1 spin echo, axial T2 fast spin echo, sagittal and axial FLAIR, coronal T2 fast spin echo, axial gradient echo, axial diffusion and ADC through the brain. After the administration of contrast, axial 3D VIBE of the cranial vasculature and brain. Brain MRA: Non-contrast 3-D time of flight MR angiogram, with multiple vswrxol-cxpvacfby-ozakmcdoxu (MIP) reformats performed. Neck MRA: Axial and sagittal TruFISP through the neck. Coronal dynamic MR angiogram during administration of contrast in the arterial and venous phases, with 3-dimenstional rqtbgru-qkvajdgha-ekrqqcryvl (MIP) reformats constructed from subtraction images. COMPARISON: [facility], CT, HEAD WITHOUT CONTRAST, 04/19/2014, 10:41. [facility], CT, CT HEAD/BRAIN WO CON, 01/24/2021, 11:48. [facility], MR, STROKE PROTOCOL, 05/09/2014, 9:10. FINDINGS: Image quality: Excellent. BRAIN: CSF spaces: Ventricles are normal in size and shape. Basal cisterns are patent. No extra-axial fluid collections. Brain: No intracranial bleeds or mass effects. Tripp-white matter interface is normal. Diffusion weighted images show no acute ischemic insults. Brainstem appears normal. Brain parenchymal volume loss is seen. Chronic small vessel ischemic changes are seen. Normal intravascular flow voids are present. No abnormal intracranial enhancement. Skull and face: Calvarial marrow signal is normal. Orbits appear normal. Incidental note is made of hyperostosis frontalis. This is not considered to be pathologic in a woman of this age. Sinuses: Sinuses and mastoids are clear. BRAIN MR ANGIOGRAM: Anterior circulation: Intracranial internal carotid arteries are normal in size and enhancement. The flow within the paired anterior cerebral arteries is normal and symmetric. The flow within the middle cerebral arteries is normal and symmetric. The anterior communicating artery is seen. No stenoses, occlusions, or aneurysms. Posterior circulation: The visualized portions of the vertebral arteries demonstrate normal caliber, and join to form a normal appearing basilar artery. The flow within the posterior cerebral arteries is normal and symmetric. No stenoses, occlusions, or aneurysms. NECK MR ANGIOGRAM: Carotids: Incidental note is made of a common origin of the right brachiocephalic artery and the left common carotid artery (bovine type arch). This is considered to be a developmental variant of no clinical consequence. The origins of the common carotid arteries appear patent. The calibers and courses of both common carotid arteries are normal. The bifurcation regions demonstrate atherosclerotic irregularity, yet without a hemodynamically significant stenosis. The internal carotid arteries demonstrate normal course and caliber. Posterior circulation: The origins of the vertebral arteries appear patent. More superior portions of both vertebral arteries demonstrate normal course and caliber, and join to form a normal appearing basilar artery. Miscellaneous: Subclavian arteries appear patent. Pre-contrast images through the neck show no soft tissue abnormalities. IMPRESSION: BRAIN MRI: No findings of acute or subacute infarction can be seen. Note is made of age-appropriate brain parenchymal volume loss and chronic small vessel ischemic changes. No masses or abnormal enhancement can be seen. BRAIN MR ANGIOGRAM: No significant intracranial arterial abnormality is seen. NECK MR ANGIOGRAM: Within the arteries of the neck, no hemodynamically significant stenosis can be seen. Dictated by: Shun Max M.D. on 01/24/2021 at 15:28 Approved by: Shun Max M.D. on 01/24/2021 at 15:32 ECG Data Attestation: I personally reviewed and interpreted this ECG as follows: Prior ECG tracings: available for review Interpretation: Sinus rhythm rate at 66. Normal [place]. LA interval 200. QRS duration 80, QT/QTC 430 to/452 Q wave in III undetermined age Similar Q wave in 08/2019 EKG [facility] Narrative Medical decision making narrative: This is a 75-year-old female who has past medical history significant for hypothyroidism, TIA presents to ED with difficulty with balance and dizziness with changing in position and movement of her head accompanied with nausea for last 2 weeks. Patient reports she has history of vertigo but this feels different. There is no focal neurologic deficit per exam and NIHSS score is 0. EKG normal sinus rhythm rate at [address] changes but Q-waves in lead 3. Chest x-ray was normal. CT test of head without acute findings. CBC test shows mild anemia from her baseline from Sep 2020 with H/H of 11.6/34.4 (13.4/39.9) and patient has a similar H/H in October 2019 when she was in ED with dizziness as well. Cardiac enzymes were negative. Unremarkable chemistry test except mild indications for dehydrations. Patient medicated with 25mg Meclizine which helped with dizziness marginally. MRI contacted and informed that MRI test to r/o posterior stroke could be done today and the patient agreed to proceed with the test whichis scheduled at 1500. MRI test result negative for acute stroke, no significant intracranial or carotid arteries abnormality seen. Patient advised to follow-up with PCP Dr. Briscoe in 2-3 days and her symptoms could be vertigo vs. Menierier disease. Patient may need a referral to physical therapy and patient advised to reduced diet in high sodium, alcohol etc. given patient saw improvement with meclizine patient discharged to home with few tabs for as needed use. Return precautions discussed with patient and she verbalized understanding in agreement with the treatment plan. <Ravi Gant, DO - Last Filed: 01/24/21 17:58> Lab Data Labs: Lab Results 01/24/21 01/24/21 01/24/21 Range/Units 11:28 11:28 11:28 WBC 5.2 (4.5-11.0) X10^3/uL RBC 3.84 L (4.0-5.2) X10^6/uL Hgb 11.6 L (12.0-16.0) g/dL Hct 34.4 L (36-46) % MCV 89.5 (80-100) fL MCH 30.1 (26-34) PG MCHC 33.6 (30-36) % RDW 14.1 (11.6-14.8) % Plt Count 205 (150-400) X10^3/uL Neut % (Auto) 66.0 (50-75) % Lymph % (Auto) 26.3 (25-40) % [place] % (Auto) 5.3 (3-14) % Eos % (Auto) 1.6 L (2-4) % Baso % (Auto) 0.8 (0-2) % Neut # (Auto) 3500 (3547-8145) /uL Lymph # (Auto) 1400 (2386-5106) /uL [place] # (Auto) 300 (0-900) /uL Eos # (Auto) 100 (0-450) /uL Baso # (Auto) 0 (0-100) /uL PT 11.8 (10.1-12.7) SECONDS INR 1.0 (0.9-1.3) Sodium 136 L (137-145) mmol/L Potassium 3.6 (3.4-5.1) mmol/L Chloride 102 (98-107) mmol/L Carbon Dioxide 30 (22-32) mmol/L BUN 19 H (7-17) mg/dL Creatinine 0.72 (0.52-1.04) mg/dL Estimated GFR > 60.0 (>60) mL/min BUN/Creatinine Ratio 26.4 H (6-22) Glucose 118 H (80-110) mg/dL Calcium 9.8 (8.4-10.2) mg/dL Total Bilirubin 0.3 (0.2-1.3) mg/dL AST 33 (14-36) IU/L ALT 21 (<35) IU/L Alkaline Phosphatase 78 (38-126) U/L Troponin I < 0.012 (0.01-0.034) ng/mL Total Protein 6.5 (6.3-8.2) g/dL Albumin 3.9 (3.5-5.0) g/dL Globulin 2.6 (1.7-4.1) g/dL Albumin/Globulin Ratio 1.5 (1.0-2.8) Point of Care Testing Glucose POC 121 Urine Dip Bedside Urine Glucose Negative Bedside Urine Bilirubin - Negative Bedside Urine Ketone - Negative Urine Specific [place] 1.015 Bedside Urine Occult Blood - Negative Bedside Urine pH 7.5 Bedside Urine Protein - Negative Bedside Urine Urobilinogen - Negative Bedside Urine Nitrite - Negative Bedside Urine Leukocytes - Negative Esterase Discharge Plan Departure Patient Disposition: Home Clinical Impression: Dizziness Instructions: DI for Vertigo Activity Restrictions/Additional Instructions: You have been diagnosed with [dizziness. Assuring CT of head, MRI of brain, lab tests today. Slightly decreased H&H is likely from donating blood. Your symptoms could be due to vertigo or Meniere disease]. What to do: *Continue your current medications. Please use meclizine as needed for dizziness. This medication can cause drowsiness so please avoid driving, drinking alcohol, or operating heavy equipments. [facility]. *Follow up with your primary care provider in 2-3 days, call for an appointment. Let them know you were seen in the ED and that we asked you to be seen in follow up. *Return to ED if you have any new, worsening, or concerning symptoms, such as [worsening dizziness, chest pain, breathing difficulty, unable to tolerate fluids, fever, symptoms like stroke such as facial droops, speech difficulty, double vision, paralysis or any acute concerns]. Prescriptions: New meclizine 25 mg tablet 25 mg PO BID PRN (Reason: dizziness) Qty: 20 RF: 0 No Action rosuvastatin 10 mg tablet 10 mg PO BEDTIME Qty: 90 RF: 3 levothyroxine [Synthroid] 112 mcg tablet 112 mcg PO QAM Qty: 90 RF: 3 triamterene-hydrochlorothiazid 37.5-25 mg tablet See Rx Instructions .ROUTE .COMPLEX Qty: 90 RF: 1 esomeprazole magnesium [Nexium 24HR] 20 mg capsule,delayed release(DR/EC) 20 mg PO DAILY RF: 0 Cheleated Magnesium Glycinate 400 mg PO BID RF: 0 potassium gluconate 550 mg (90 mg) tablet 550 mg PO DAILY RF: 0 acetylcarnitine 500 mg capsule 500 mg PO DAILY RF: 0 Homocysteine Formula 0.8-50-100 mg-mg-mcg tablet 1 tab PO DAILY RF: 0 sertraline 50 mg tablet 50 mg PO DAILY RF: 0 calcium carb-D3-mag ox-zinc ox 333 mg-133 unit -133 mg-5 mg Tablet 1 tab PO BID RF: 0 CoQ-10 1 cap PO DAILY RF: 0 Referrals: Thony Briscoe DO [Primary Care Provider] - <Ravi Gant DO - Last Filed: 01/24/21 17:58> Cosign ED Attending Cosignature Attestation: Dr Gant Co-Sign Statement: I was available for consultation during this patient's emergency department visit. This chart is signed by myself for administrative purposes only. I did not have direct contact with this patient during this visit. They were seen independently by the APC.
--- NOTE | 2021-01-24 11:32 | DI.RAD.S_ITS ---
PROCEDURE: XR CHEST 1V INDICATIONS: dizziness TECHNIQUE: One view of the chest was acquired. COMPARISON: [facility], CR, XR CHEST 1V, 11/17/2019, 17:36. FINDINGS: Surgical changes and devices: None. Lungs and pleura: Lungs are clear. No pleural effusions or pneumothorax. Mediastinum: Mediastinal contours appear normal. Heart size is normal. Bones and chest wall: No suspicious bony lesions. Overlying soft tissues appear unremarkable. IMPRESSION: No acute pulmonary process. Dictated by: Amarilis Beth M.D. on 01/24/2021 at 11:38 Approved by: Amarilis Beth M.D. on 01/24/2021 at 11:38
--- NOTE | 2021-01-24 11:39 | DI.CT.S_ITS ---
PROCEDURE: CT HEAD/BRAIN WO CON INDICATIONS: dizziness TECHNIQUE: Noncontrast 4.5 mm thick angled axial sections acquired from the foramen magnum to the vertex, with coronal and sagittal reformats. For radiation dose reduction, the following was used: automated exposure control, adjustment of mA and/or kV according to patient size. COMPARISON: [facility], CT, HEAD WITHOUT CONTRAST, 04/19/2014, 10:41. [facility], MR, MR BRAIN WITH/WITHOUT CONTRAST, 11/17/2018, 16:22. FINDINGS: Image quality: Excellent. CSF spaces: Basal cisterns are patent. No extra-axial fluid collections. The ventricles are symmetric in size and shape. Brain: No intracranial bleeds or masses. There is cerebral volume loss for age, with resultant ventricular and sulcal prominence. There are periventricular and deep white matter chronic small vessel ischemic changes. There is intracranial internal carotid artery atherosclerosis. Skull and face: Calvarium and visualized facial bones appear intact, without suspicious lesions. Incidental note is made of hyperostosis frontalis. This is not considered to be pathologic in a woman of this age. Sinuses: Visualized sinuses and mastoids are clear. IMPRESSION: Unremarkable intracranial study for age, without an imaging explanation found for the patient's presenting symptoms. Dictated by: Shun Max M.D. on 01/24/2021 at 11:12 Approved by: Shun Max M.D. on 01/24/2021 at 11:13
[2021-01-24 11:40] LABS: Add Manual Diff / Slide Review NO; Basophils Absolute Auto 0 /uL (0-100); Basophils Percent Auto 0.8 % (0-2); Eosinophils Absolute Auto 100 /uL (0-450); Eosinophils Percent Auto 1.6 % (2-4); Hematocrit 34.4 % (36-46); Hemoglobin 11.6 g/dL (12.0-16.0); Lymphocytes Absolute Auto 1400 /uL (1100-4500); Lymphocytes Percent Auto 26.3 % (25-40); Mean Corpuscular HGB Conc 33.6 % (30-36); Mean Corpuscular Hemoglobin 30.1 PG (26-34); Mean Corpuscular Volume 89.5 fL (80-100); Monocytes Absolute Auto 300 /uL (0-900); Monocytes Percent Auto 5.3 % (3-14); Neutrophils Absolute Auto 3500 /uL (1500-7000); Platelet Count 205 X10^3/uL (150-400); Red Blood Cell Count 3.84 X10^6/uL (4.0-5.2); Red Cell Distribution Width 14.1 % (11.6-14.8); White Blood Cell Count 5.2 X10^3/uL (4.5-11.0)
[2021-01-24 11:42] LABS: Prothrombin Time 11.8 SECONDS (10.1-12.7)
[2021-01-24 11:47] LABS: Alanine Aminotransferase 21 IU/L (<35); Albumin 3.9 g/dL (3.5-5.0); Albumin Globulin Ratio 1.5 (1.0-2.8); Alkaline Phosphatase 78 U/L (38-126); Aspartate Aminotransferase 33 IU/L (14-36); BUN Creatinine Ratio 26.4 (6-22); Bilirubin Total 0.3 mg/dL (0.2-1.3); Blood Urea Nitrogen 19 mg/dL (7-17); Calcium 9.8 mg/dL (8.4-10.2); Carbon Dioxide 30 mmol/L (22-32); Chloride 102 mmol/L (98-107); Estimated Glomerular Filt Rate > 60.0 mL/min (>60); Globulin 2.6 g/dL (1.7-4.1); Glucose 118 mg/dL (80-110); HEMOLYSIS < 15 (0-50); Potassium 3.6 mmol/L (3.4-5.1); Sodium 136 mmol/L (137-145); Total Protein 6.5 g/dL (6.3-8.2)
[2021-01-24 11:58] LABS: Troponin I < 0.012 ng/mL (0.01-0.034)
[2021-01-24] MEDS: MECLIZINE HCL 12.5 MG TABLET 25 MG PO (12:29)
--- NOTE | 2021-01-24 12:29 | DI.MRI.S_ITS ---
PROCEDURE: MR STROKE Pre- and post-contrast brain MRI, non-contrast brain MR angiogram, pre- and postcontrast neck MR angiogram INDICATIONS: r/o stroke, dizziness TECHNIQUE: Brain: Noncontrast axial T1 spin echo, axial T2 fast spin echo, sagittal and axial FLAIR, coronal T2 fast spin echo, axial gradient echo, axial diffusion and ADC through the brain. After the administration of contrast, axial 3D VIBE of the cranial vasculature and brain. Brain MRA: Non-contrast 3-D time of flight MR angiogram, with multiple duqfgtu-aiezjfmet-fauehmmlfn (MIP) reformats performed. Neck MRA: Axial and sagittal TruFISP through the neck. Coronal dynamic MR angiogram during administration of contrast in the arterial and venous phases, with 3-dimenstional oltrwos-jrdslhadp-bqqjleapsm (MIP) reformats constructed from subtraction images. COMPARISON: [facility], CT, HEAD WITHOUT CONTRAST, 04/19/2014, 10:41. [facility], CT, CT HEAD/BRAIN WO CON, 01/24/2021, 11:48. [facility], MR, STROKE PROTOCOL, 05/09/2014, 9:10. FINDINGS: Image quality: Excellent. BRAIN: CSF spaces: Ventricles are normal in size and shape. Basal cisterns are patent. No extra-axial fluid collections. Brain: No intracranial bleeds or mass effects. Tripp-white matter interface is normal. Diffusion weighted images show no acute ischemic insults. Brainstem appears normal. Brain parenchymal volume loss is seen. Chronic small vessel ischemic changes are seen. Normal intravascular flow voids are present. No abnormal intracranial enhancement. Skull and face: Calvarial marrow signal is normal. Orbits appear normal. Incidental note is made of hyperostosis frontalis. This is not considered to be pathologic in a woman of this age. Sinuses: Sinuses and mastoids are clear. BRAIN MR ANGIOGRAM: Anterior circulation: Intracranial internal carotid arteries are normal in size and enhancement. The flow within the paired anterior cerebral arteries is normal and symmetric. The flow within the middle cerebral arteries is normal and symmetric. The anterior communicating artery is seen. No stenoses, occlusions, or aneurysms. Posterior circulation: The visualized portions of the vertebral arteries demonstrate normal caliber, and join to form a normal appearing basilar artery. The flow within the posterior cerebral arteries is normal and symmetric. No stenoses, occlusions, or aneurysms. NECK MR ANGIOGRAM: Carotids: Incidental note is made of a common origin of the right brachiocephalic artery and the left common carotid artery (bovine type arch). This is considered to be a developmental variant of no clinical consequence. The origins of the common carotid arteries appear patent. The calibers and courses of both common carotid arteries are normal. The bifurcation regions demonstrate atherosclerotic irregularity, yet without a hemodynamically significant stenosis. The internal carotid arteries demonstrate normal course and caliber. Posterior circulation: The origins of the vertebral arteries appear patent. More superior portions of both vertebral arteries demonstrate normal course and caliber, and join to form a normal appearing basilar artery. Miscellaneous: Subclavian arteries appear patent. Pre-contrast images through the neck show no soft tissue abnormalities. IMPRESSION: BRAIN MRI: No findings of acute or subacute infarction can be seen. Note is made of age-appropriate brain parenchymal volume loss and chronic small vessel ischemic changes. No masses or abnormal enhancement can be seen. BRAIN MR ANGIOGRAM: No significant intracranial arterial abnormality is seen. NECK MR ANGIOGRAM: Within the arteries of the neck, no hemodynamically significant stenosis can be seen. Dictated by: Shun Max M.D. on 01/24/2021 at 15:28 Approved by: Shun Max M.D. on 01/24/2021 at 15:32
== END 2021-01-24 17:13 | disposition home or self-care (01) ==
PROVIDERS: Emergency Provider Nurse Practitioner Family; PCP Family Medicine
DX: R42 Dizziness and giddiness (principal); E78.5 Hyperlipidemia, unspecified; E03.9 Hypothyroidism, unspecified; R11.0 Nausea; Z86.73 Personal history of transient ischemic attack (TIA), and cerebral infarction without residual deficits
CPT/HCPCS: 36415; 70450; 70548; 70553; 71045; 80053; 81003; 82962; 84484; 85025; 85610; 93005; 99284; A9579

== ENCOUNTER → 2021-04-04 07:22 | Outpatient (CLI) | payer MEDICARE, OTHER, SELFPAY ==
[2019-10-16 10:42] VITALS: BMI 30.9
[2021-04-04 08:48] LABS: Free T3, Triiodothyronine Free 5.56 pg/mL (2.77-5.27); Free T4, Direct Thyroxine 0.76 ng/dL (0.78-2.19)
[2021-04-04 09:01] LABS: Thyroid Stimulating Hormone 0.671 uIU/mL (0.47-4.68)
== END ==
PROVIDERS: PCP Family Medicine; Referring Provider Family Medicine; Visit Provider Family Medicine
DX: E03.9 Hypothyroidism, unspecified (principal)
CPT/HCPCS: 36415; 84439; 84443; 84481

== ENCOUNTER → 2021-05-21 07:12 | Outpatient (CLI) | payer MEDICARE, OTHER, SELFPAY ==
[2019-10-16 10:42] VITALS: BMI 30.9
[2021-05-21 09:18] LABS: Free T3, Triiodothyronine Free 5.03 pg/mL (2.77-5.27); Free T4, Direct Thyroxine 1.08 ng/dL (0.78-2.19)
[2021-05-21 09:32] LABS: Thyroid Stimulating Hormone 0.199 uIU/mL (0.47-4.68)
== END ==
PROVIDERS: PCP Family Medicine; Referring Provider Family Medicine; Visit Provider Family Medicine
DX: E03.9 Hypothyroidism, unspecified (principal)
CPT/HCPCS: 36415; 84439; 84443; 84481

== ENCOUNTER 2021-08-05 14:17 | Emergency (ER) | payer MEDICARE, OTHER, SELFPAY ==
[2019-10-16 10:42] VITALS: BMI 30.9
[2021-08-05 14:29] VITALS: BP 124/70; PULSE 66; RESP 18; TEMP 37; O2SAT 98; BMI 30.5
--- NOTE | 2021-08-05 16:18 | DI.CT.S_ITS ---
PROCEDURE: CT ABDOMEN PELVIS W CON INDICATIONS: LLQ pain TECHNIQUE: After the administration of oral and IV contrast, axial sections were acquired from the lung bases to the pubic symphysis. Coronal and sagittal reformats were performed. For radiation dose reduction, the following was used: automated exposure control, adjustment of mA and/or kV according to patient size. COMPARISON: [facility], CT, ABDOMEN/PELVIS WITH CONTRAST, 04/11/2015, 19:56. FINDINGS: Image quality: Excellent. Lung bases: Unremarkable. Heart: No significant findings. ABDOMEN: Liver: Unremarkable. Gallbladder: Surgically absent. Biliary ducts: Unremarkable. Pancreas: Unremarkable. Spleen: Unremarkable. Adrenal Glands: Unremarkable. Kidneys and Ureters: Unremarkable. Stomach and Bowel: Inflammatory change surrounding the distal sigmoid colon left paramedian, (), [id number]. No loculated fluid collection. No extraluminal air. Diverticulosis. No small bowel obstruction. Normal appendix. Peritoneum: No pneumoperitoneum. No ascites. Ventral Wall: No hernia. Abdominal Nodes: No retroperitoneal or mesenteric adenopathy by size criteria. Vessels: Aorta and inferior vena cava are normal in size. PELVIS: Pelvic Organs: Anteverted uterus. Fullness posterior left to the uterus, (), appears similar to 2015. Bladder: Decompressed. The bladder wall appears thickened. No bladder calculi. Pelvic Nodes: No enlarged lymph nodes. Miscellaneous: No inguinal hernias are seen. Bones: Left hip arthroplasty. DDD. IMPRESSION: 1. Sigmoid colon diverticulitis. No abscess at this time. 2. Bladder wall thickening which could be reactive. Bladder is decompressed limiting evaluation. 3. Question of left posterior exophytic fibroid which appears similar to 2015. -This could be further evaluated with pelvic ultrasound. Comment: Findings were discussed with Ivonne Moreau at the time of dictation. Dictated by: Aj Wyatt M.D. on 08/05/2021 at 17:57 Approved by: Aj Wyatt M.D. on 08/05/2021 at 18:07
--- NOTE | 2021-08-05 16:21 | ED.ABDPAIN ---
HPI - Abdominal Pain <CLEVE John - Last Filed: 08/05/21 19:18> General Chief Complaint: Abdominal Pain Stated Complaint: left abd pain Time Seen by Provider: 08/05/21 16:16 Source: patient Mode of arrival: Ambulatory Limitations: no limitations History of Present Illness HPI narrative: 75-year-old female with history of diverticulitis 5 years ago presents with lower left quadrant pain that started yesterday followed by 1 episode of diarrhea. She states that the pain radiates to her suprapubic area and her pain has remained consistent and intermittent. She reports this pain feels dull and crampy. She denies any melena, she endorses having some dysuria and urgency, but reports her urine is pale yellow in color. She denies having any vaginal discharge. She reports having a subjective fever yesterday, and has been more tired than usual since her pain started. She denies any pain with bowel movements. Her last oral intake was yesterday afternoon. Relieving factors: rest Related Data Home Medications Medication Instructions Recorded Confirmed CoQ-10 1 cap PO DAILY 11/17/19 05/28/21 calcium carb 333 mg-vit D3 133 1 tab PO BID 11/17/19 05/28/21 unit-mag ox 133 mg-zinc oxide 5 mg tab Cheleated Magnesium Glycinate PO BID 10/03/20 05/28/21 acetylcarnitine 500 mg capsule 500 mg PO DAILY cap 10/03/20 05/28/21 esomeprazole magnesium 20 mg 20 mg PO DAILY 10/03/20 05/28/21 capsule,delayed release (Nexium 24HR) folic acid-vit B6-vit B12 0.8 1 tab PO DAILY 10/03/20 05/28/21 mg-50 mg-100 mcg tablet (Homocysteine Formula) potassium gluconate 550 mg (90 mg) 550 mg PO DAILY 10/03/20 05/28/21 tablet Previous Rx's Medication Instructions Recorded sertraline 50 mg tablet See Rx Instructions .ROUTE 03/19/21 .COMPLEX #90 tablet rosuvastatin 10 mg tablet 10 mg PO BEDTIME #90 tab 04/08/21 levothyroxine 50 mcg capsule 50 mcg PO DAILY #60 cap 04/09/21 thyroid (pork) 60 mg tablet 60 mg PO DAILY #60 tab 04/09/21 ([place] Thyroid) triamterene 37.5 See Rx Instructions .ROUTE 06/11/21 mg-hydrochlorothiazide 25 mg tablet .COMPLEX #90 tab Biest cream See Rx Instructions .ROUTE 06/25/21 .COMPLEX #30 day DHEA See Rx Instructions .ROUTE 06/25/21 .COMPLEX #30 tab Estriol Vaginal [place] Cream See Rx Instructions .ROUTE 06/25/21 .COMPLEX #30 g Progesterone E4M See Rx Instructions .ROUTE 06/25/21 .COMPLEX #30 caplet cortisol manage See Rx Instructions .ROUTE 06/25/21 .COMPLEX #30 tab amoxicillin 875 mg-potassium 1 tab PO TID 7 Days #21 tab 08/05/21 clavulanate 125 mg tablet (Augmentin) Allergies Allergy/AdvReac Type Severity Reaction Status Date / Time omeprazole AdvReac Severe DRY MOUTH, Verified 08/05/21 14:29 changed taste sensations Review of Systems <CLEVE John - Last Filed: 08/05/21 19:18> Review of Systems Narrative: General: denies fever, chills Head/Neck: denies headache, neck pain Eyes: denies visual changes, eye pain Cardio: denies chest pain, palpitations Respiratory: denies shortness of breath, cough GI: Endorses LLQ abdominal pain, denies nausea, vomiting, or diarrhea since yesterday. : denies dysuria, hematuria MSK: denies joint pain, muscle weakness Skin: denies rash, itching Neuro: denies numbness, tingling Patient History <CLEVE John - Last Filed: 08/05/21 19:18> Medical History (Updated 08/05/21 @ 18:15 by CLEVE John) Bilateral arm pain Bilateral hand numbness Cervical somatic dysfunction Chronic pain of left lower extremity Cranial somatic dysfunction Cyst Depression (Unknown) Diverticulitis GERD (gastroesophageal reflux disease) (Unknown) HTN (hypertension) Hyperlipemia (Unknown) Hypothyroidism (Unknown) Neck stiffness Osteopenia (~12/2015) Osteoporosis Palpitations PVC's (premature ventricular contractions) Segmental and somatic dysfunction of rib cage Thoracic region somatic dysfunction TIA (transient ischemic attack) (2013) Upper extremity somatic dysfunction Surgical History History of left hip replacement Hx of section (Unknown) Hx of cholecystectomy (Unknown) Hx of tonsillectomy (Unknown) Status post ORIF of fracture of ankle (03/2016) Family History Father Hypertension Mother Hypertension Sister Bipolar 1 disorder Social History household members: spouse Smoking Status: Never smoker alcohol intake: current Smoking Status: Never smoker alcohol intake frequency: holidays/special occasions only Substance Use Type: marijuana Exam <CLEVE John - Last Filed: 08/05/21 19:18> Narrative Exam Narrative: Independently reviewed vitals signs and nursing notes. General: Awake, alert, nontoxic, no cardiorespiratory distress Head/Neck: Atraumatic, neck full range of motion Eyes: EOMI, conjunctiva normal Nose: nares patent, no rhinorrhea Mouth/Throat: moist mucus membranes, posterior pharynx normal, no oral lesions Cardio: Regular rate and rhythm, no peripheral edema Respiratory: respirations unlabored without wheezing, stridor, or rales. No retractions. GI: Abdomen soft, nontender to palpation x4 quadrants, no masses, no bruits, complaining of dull pain to her lower left quadrant and suprapubic area MSK: Moves all extremities, neurovascularly intact Skin: Normal capillary refill, no rash Neuro: Normal speech and cognition, normal gait Initial Vital Signs Initial Vital Signs: Vital Signs Temperature 98.6 F 08/05/21 14:29 Pulse Rate 66 08/05/21 14:29 Respiratory Rate 18 08/05/21 14:29 Blood Pressure 124/70 08/05/21 14:29 Pulse Oximetry 98 08/05/21 14:29 <Giselle Shannon MD - Last Filed: 08/06/21 14:22> Initial Vital Signs Initial Vital Signs: Vital Signs Temperature 98.6 F 08/05/21 14:29 Pulse Rate 66 08/05/21 14:29 Respiratory Rate 18 08/05/21 14:29 Blood Pressure 124/70 08/05/21 14:29 Pulse Oximetry 98 08/05/21 14:29 Course <CLEVE John - Last Filed: 08/05/21 19:18> Orders Ordered: ED Orders 08/05/21 16:18 CT abdomen pelvis w con Stat 08/05/21 16:50 Complete Blood Count AUTO DIFF Stat Comprehensive Metabolic Panel Stat Lipase Stat Vital Signs Vital signs: Vital Signs - 8 hr 08/05/21 14:29 08/05/21 18:25 Temperature 98.6 F Pulse Rate 66 64 Respiratory Rate 18 16 Blood Pressure 124/70 125/70 Pulse Oximetry 98 99 <Giselle Shannon MD - Last Filed: 08/06/21 14:22> Orders Ordered: ED Orders 08/05/21 16:18 CT abdomen pelvis w con Stat 08/05/21 16:50 Complete Blood Count AUTO DIFF Stat Comprehensive Metabolic Panel Stat Lipase Stat Vital Signs Vital signs: Vital Signs - 8 hr 08/05/21 14:29 08/05/21 18:25 Temperature 98.6 F Pulse Rate 66 64 Respiratory Rate 18 16 Blood Pressure 124/70 125/70 Pulse Oximetry 98 99 MDM - Abdominal Pain <CLEVE John - Last Filed: 08/05/21 19:18> Lab Data Result diagrams: 08/05/21 16:50 08/05/21 16:50 Labs: Lab Results 08/05/21 08/05/21 Range/Units 16:50 16:50 WBC 11.8 H (4.5-11.0) X10^3/uL RBC 4.61 (4.0-5.2) X10^6/uL Hgb 13.0 (12.0-16.0) g/dL Hct 39.2 (36-46) % MCV 85.0 (80-100) fL MCH 28.2 (26-34) PG MCHC 33.2 (30-36) % RDW 19.3 H (11.6-14.8) % Plt Count 230 (150-400) X10^3/uL Neut % (Auto) 83.3 H (50-75) % Lymph % (Auto) 9.8 L (25-40) % Boyle % (Auto) 6.5 (3-14) % Eos % (Auto) 0.2 L (2-4) % Baso % (Auto) 0.2 (0-2) % Neut # (Auto) 9800 H (0416-2007) /uL Lymph # (Auto) 1200 (7753-0660) /uL Boyle # (Auto) 800 (0-900) /uL Eos # (Auto) 0 (0-450) /uL Baso # (Auto) 0 (0-100) /uL Sodium 134 L (137-145) mmol/L Potassium 3.5 (3.4-5.1) mmol/L Chloride 99 (98-107) mmol/L Carbon Dioxide 26 (22-32) mmol/L BUN 16 (7-17) mg/dL Creatinine 0.63 (0.52-1.04) mg/dL Estimated GFR > 60.0 (>60) mL/min BUN/Creatinine Ratio 25.4 H (6-22) Glucose 114 H (80-110) mg/dL Calcium 9.9 (8.4-10.2) mg/dL Total Bilirubin 1.0 (0.2-1.3) mg/dL AST 34 (14-36) IU/L ALT 20 (<35) IU/L Alkaline Phosphatase 93 (38-126) U/L Total Protein 7.6 (6.3-8.2) g/dL Albumin 4.3 (3.5-5.0) g/dL Globulin 3.3 (1.7-4.1) g/dL Albumin/Globulin Ratio 1.3 (1.0-2.8) Lipase 83 (23-300) U/L Point of care testing: Urine Dip Bedside Urine Glucose Negative Bedside Urine Bilirubin - Negative Bedside Urine Ketone - Negative Urine Specific [place] 1.025 Bedside Urine Occult Blood - Negative Bedside Urine pH 6.0 Bedside Urine Protein +/- 15 Bedside Urine Urobilinogen - Negative Bedside Urine Nitrite - Negative Bedside Urine Leukocytes - Negative Esterase Imaging Data CT scan - abdomen/pelvis: Radiologist's Impression: PROCEDURE: CT ABDOMEN PELVIS W CON INDICATIONS: LLQ pain TECHNIQUE: After the administration of oral and IV contrast, axial sections were acquired from the lung bases to the pubic symphysis. Coronal and sagittal reformats were performed. For radiation dose reduction, the following was used: automated exposure control, adjustment of mA and/or kV according to patient size. COMPARISON: [facility], CT, ABDOMEN/PELVIS WITH CONTRAST, 04/11/2015, 19:56. FINDINGS: Image quality: Excellent. Lung bases: Unremarkable. Heart: No significant findings. ABDOMEN: Liver: Unremarkable. Gallbladder: Surgically absent. Biliary ducts: Unremarkable. Pancreas: Unremarkable. Spleen: Unremarkable. Adrenal Glands: Unremarkable. Kidneys and Ureters: Unremarkable. Stomach and Bowel: Inflammatory change surrounding the distal sigmoid colon left paramedian, (), [id number]. No loculated fluid collection. No extraluminal air. Diverticulosis. No small bowel obstruction. Normal appendix. Peritoneum: No pneumoperitoneum. No ascites. Ventral Wall: No hernia. Abdominal Nodes: No retroperitoneal or mesenteric adenopathy by size criteria. Vessels: Aorta and inferior vena cava are normal in size. PELVIS: Pelvic Organs: Anteverted uterus. Fullness posterior left to the uterus, (), appears similar to 2015. Bladder: Decompressed. The bladder wall appears thickened. No bladder calculi. Pelvic Nodes: No enlarged lymph nodes. Miscellaneous: No inguinal hernias are seen. Bones: Left hip arthroplasty. DDD. IMPRESSION: 1. Sigmoid colon diverticulitis. No abscess at this time. 2. Bladder wall thickening which could be reactive. Bladder is decompressed limiting evaluation. 3. Question of left posterior exophytic fibroid which appears similar to 2015. -This could be further evaluated with pelvic ultrasound. Comment: Findings were discussed with Ivonne Moreau at the time of dictation. Dictated by: Aj Wyatt M.D. on 08/05/2021 at 17:57 Approved by: Aj Wyatt M.D. on 08/05/2021 at 18:07 MDM Narrative Medical decision making narrative: 75-year-old female with history of hyperlipidemia, hypothyroidism, hypertension, depression, s/p total left hip arthroplasty on 10/09/2019, cholecystectomy, and diverticulitis 5 years ago. Review of medical records indicate she has had two normal colonoscopies and 1st degree relatives with colon cancer, history of normal paps with no more needed or desired. CT abdomen pelvis with contrast shows acute diverticulitis of sigmoid colon without abscess. We discussed diet appropriate foods and reasons to return to the emergency department. Initial ddx to include but not limited to the less likely possibilites of acute abdomen, ovarian torsion, appendicitis, cystitis, inguinal or umbilical hernia, or pelvic inflammatory disease. Patient is nontoxic in appearance and no concern for sepsis at this time. Vital signs were within normal limits for today's exam. Patient declined any need for pain medication today. <Giselle Shannon MD - Last Filed: 08/06/21 14:22> Lab Data Labs: Lab Results 08/05/21 08/05/21 Range/Units 16:50 16:50 WBC 11.8 H (4.5-11.0) X10^3/uL RBC 4.61 (4.0-5.2) X10^6/uL Hgb 13.0 (12.0-16.0) g/dL Hct 39.2 (36-46) % MCV 85.0 (80-100) fL MCH 28.2 (26-34) PG MCHC 33.2 (30-36) % RDW 19.3 H (11.6-14.8) % Plt Count 230 (150-400) X10^3/uL Neut % (Auto) 83.3 H (50-75) % Lymph % (Auto) 9.8 L (25-40) % Boyle % (Auto) 6.5 (3-14) % Eos % (Auto) 0.2 L (2-4) % Baso % (Auto) 0.2 (0-2) % Neut # (Auto) 9800 H (3158-1287) /uL Lymph # (Auto) 1200 (5629-3381) /uL Boyle # (Auto) 800 (0-900) /uL Eos # (Auto) 0 (0-450) /uL Baso # (Auto) 0 (0-100) /uL Sodium 134 L (137-145) mmol/L Potassium 3.5 (3.4-5.1) mmol/L Chloride 99 (98-107) mmol/L Carbon Dioxide 26 (22-32) mmol/L BUN 16 (7-17) mg/dL Creatinine 0.63 (0.52-1.04) mg/dL Estimated GFR > 60.0 (>60) mL/min BUN/Creatinine Ratio 25.4 H (6-22) Glucose 114 H (80-110) mg/dL Calcium 9.9 (8.4-10.2) mg/dL Total Bilirubin 1.0 (0.2-1.3) mg/dL AST 34 (14-36) IU/L ALT 20 (<35) IU/L Alkaline Phosphatase 93 (38-126) U/L Total Protein 7.6 (6.3-8.2) g/dL Albumin 4.3 (3.5-5.0) g/dL Globulin 3.3 (1.7-4.1) g/dL Albumin/Globulin Ratio 1.3 (1.0-2.8) Lipase 83 (23-300) U/L Point of care testing: Urine Dip Bedside Urine Glucose Negative Bedside Urine Bilirubin - Negative Bedside Urine Ketone - Negative Urine Specific [place] 1.025 Bedside Urine Occult Blood - Negative Bedside Urine pH 6.0 Bedside Urine Protein +/- 15 Bedside Urine Urobilinogen - Negative Bedside Urine Nitrite - Negative Bedside Urine Leukocytes - Negative Esterase Discharge Plan Departure Patient Disposition: Home Clinical Impression: Diverticulitis of sigmoid colon Instructions: DI for Diverticulitis Activity Restrictions/Additional Instructions: *You have been diagnosed with diverticulitis in your sigmoid colon without abscess. Your CT results: 1. Sigmoid colon diverticulitis. No abscess at this time. 2. Bladder wall thickening which could be reactive. 3. Question of left posterior exophytic fibroid which appears similar to 2015. *What to do: Please make an appointment with your primary care physician and be seen in the next week or 2. Take your antibiotics as directed until they are gone. Return for any fever, new or worsening symptoms. *Please continue to take your regular medications as directed. [ x] New medication prescriptions sent to your pharmacy: [facility] [place] [ ] New medication written as a paper prescription [ ] No new medications given *Please follow up with your primary care provider in 2-3 days, call for an appointment. Let them know you were seen in the Emergency Department and that we ask that you be seen in follow up. We will electronically transmit a record of today's note if your PCP is in our system *If you do not have a primary care provider please contact the [facility] Resource line at [phone]. They will ask some questions about your medical history and help get you set up with a doctor in the community. *Return to Emergency Department if you should have any new, worsening or concerning symptoms, such as [fever greater than 101F, chills, worsening pain, persistent vomiting or other bothersome symptoms] Prescriptions: New amoxicillin-pot clavulanate [Augmentin] 875-125 mg tablet 1 tab PO TID 7 Days Qty: 21 RF: 0 No Action sertraline 50 mg tablet See Rx Instructions .ROUTE .COMPLEX Qty: 90 RF: 1 rosuvastatin 10 mg tablet 10 mg PO BEDTIME Qty: 90 RF: 1 triamterene-hydrochlorothiazid 37.5-25 mg tablet See Rx Instructions .ROUTE .COMPLEX Qty: 90 RF: 0 DHEA See Rx Instructions .ROUTE .COMPLEX Qty: 30 RF: 1 Estriol Vaginal [place] Cream See Rx Instructions .ROUTE .COMPLEX Qty: 30 RF: 1 Biest cream See Rx Instructions .ROUTE .COMPLEX Qty: 30 RF: 1 Progesterone E4M See Rx Instructions .ROUTE .COMPLEX Qty: 30 RF: 1 cortisol manage See Rx Instructions .ROUTE .COMPLEX Qty: 30 RF: 1 esomeprazole magnesium [Nexium 24HR] 20 mg capsule,delayed release(DR/EC) 20 mg PO DAILY RF: 0 Cheleated Magnesium Glycinate 400 mg PO BID RF: 0 potassium gluconate 550 mg (90 mg) tablet 550 mg PO DAILY RF: 0 acetylcarnitine 500 mg capsule 500 mg PO DAILY RF: 0 Homocysteine Formula 0.8-50-100 mg-mg-mcg tablet 1 tab PO DAILY RF: 0 thyroid (pork) [[place] Thyroid] 60 mg tablet 60 mg PO DAILY Qty: 60 RF: 5 levothyroxine 50 mcg capsule 50 mcg PO DAILY Qty: 60 RF: 5 calcium carb-D3-mag ox-zinc ox 333 mg-133 unit -133 mg-5 mg Tablet 1 tab PO BID RF: 0 CoQ-10 1 cap PO DAILY RF: 0 Referrals: Thony Briscoe DO [Primary Care Provider] - <Giselle Shannon MD - Last Filed: 08/06/21 14:22> [facility] I was immediately available in the department for consultation throughout this patient's visit. I agree with documentation as above. Giselle Shannon MD
[2021-08-05 17:06] LABS: Add Manual Diff / Slide Review NO; Basophils Absolute Auto 0 /uL (0-100); Basophils Percent Auto 0.2 % (0-2); Eosinophils Absolute Auto 0 /uL (0-450); Eosinophils Percent Auto 0.2 % (2-4); Hematocrit 39.2 % (36-46); Lymphocytes Absolute Auto 1200 /uL (1100-4500); Lymphocytes Percent Auto 9.8 % (25-40); Mean Corpuscular HGB Conc 33.2 % (30-36); Mean Corpuscular Hemoglobin 28.2 PG (26-34); Monocytes Absolute Auto 800 /uL (0-900); Monocytes Percent Auto 6.5 % (3-14); Neutrophils Absolute Auto 9800 /uL (1500-7000); Neutrophils Percent Auto 83.3 % (50-75); Platelet Count 230 X10^3/uL (150-400); Red Blood Cell Count 4.61 X10^6/uL (4.0-5.2); Red Cell Distribution Width 19.3 % (11.6-14.8); White Blood Cell Count 11.8 X10^3/uL (4.5-11.0)
[2021-08-05 17:21] LABS: Alanine Aminotransferase 20 IU/L (<35); Albumin 4.3 g/dL (3.5-5.0); Albumin Globulin Ratio 1.3 (1.0-2.8); Alkaline Phosphatase 93 U/L (38-126); Aspartate Aminotransferase 34 IU/L (14-36); BUN Creatinine Ratio 25.4 (6-22); Blood Urea Nitrogen 16 mg/dL (7-17); Calcium 9.9 mg/dL (8.4-10.2); Carbon Dioxide 26 mmol/L (22-32); Chloride 99 mmol/L (98-107); Estimated Glomerular Filt Rate > 60.0 mL/min (>60); Globulin 3.3 g/dL (1.7-4.1); Glucose 114 mg/dL (80-110); HEMOLYSIS 26 (0-50); Lipase 83 U/L (23-300); Potassium 3.5 mmol/L (3.4-5.1); Sodium 134 mmol/L (137-145); Total Protein 7.6 g/dL (6.3-8.2)
[2021-08-05 18:25] VITALS: BP 125/70; PULSE 64; RESP 16; O2SAT 99
== END 2021-08-05 18:26 | disposition home or self-care (01) ==
PROVIDERS: Emergency Medicine; Emergency Provider Nurse Practitioner Critical Care Medicine; PCP Family Medicine
DX: K57.32 Diverticulitis of large intestine without perforation or abscess without bleeding (principal)
CPT/HCPCS: 36415; 74177; 80053; 81003; 83690; 85025; 99284; Q9967

== ENCOUNTER → 2021-08-19 14:05 | Outpatient (CLI) | payer MEDICARE, OTHER, SELFPAY ==
[2019-10-16 10:42] VITALS: BMI 30.9
--- NOTE | 2021-08-19 14:08 | DI.RAD.S_ITS ---
PROCEDURE: XR KNEE RT 3V INDICATIONS: pain and swelling TECHNIQUE: 3 views of the knee were acquired. COMPARISON: None. FINDINGS: Bones: No fractures or dislocations. No suspicious bony lesions. Foijrndh-rh-wvahgo tricompartmental knee joint degeneration. Chondrocalcinosis. Soft tissues: Small joint effusion. No suspicious soft tissue calcifications. IMPRESSION: 1. Moderate tricompartment knee joint degeneration and chondrocalcinosis. Differential diagnoses include osteoarthritis, CPPD, and hyperparathyroidism. 2. Small knee joint effusion. Dictated by: Sandro Arias M.D. on 08/19/2021 at 14:48 Approved by: Sandro Arias M.D. on 08/19/2021 at 14:50
== END ==
PROVIDERS: PCP Family Medicine; Referring Provider Family Medicine; Visit Provider Family Medicine
DX: G89.29 Other chronic pain (principal); K57.32 Diverticulitis of large intestine without perforation or abscess without bleeding; M25.561 Pain in right knee; M11.261 Other chondrocalcinosis, right knee; M25.461 Effusion, right knee
CPT/HCPCS: 73562

== ENCOUNTER → 2021-11-17 08:05 | Outpatient (CLI) | payer MEDICARE, OTHER, SELFPAY ==
[2019-10-16 10:42] VITALS: BMI 30.9
[2021-11-17 09:45] LABS: Add Manual Diff / Slide Review NO; Basophils Absolute Auto 0 /uL (0-100); Basophils Percent Auto 0.9 % (0-2); Eosinophils Absolute Auto 100 /uL (0-450); Eosinophils Percent Auto 2.4 % (2-4); Hematocrit 39.4 % (36-46); Hemoglobin 13.7 g/dL (12.0-16.0); Lymphocytes Absolute Auto 1200 /uL (1100-4500); Lymphocytes Percent Auto 31.6 % (25-40); Mean Corpuscular HGB Conc 34.7 % (30-36); Mean Corpuscular Hemoglobin 30.6 PG (26-34); Monocytes Absolute Auto 200 /uL (0-900); Monocytes Percent Auto 6.5 % (3-14); Neutrophils Absolute Auto 2100 /uL (1500-7000); Neutrophils Percent Auto 58.6 % (50-75); Platelet Count 203 X10^3/uL (150-400); Red Blood Cell Count 4.48 X10^6/uL (4.0-5.2); Red Cell Distribution Width 14.5 % (11.6-14.8); White Blood Cell Count 3.7 X10^3/uL (4.5-11.0)
[2021-11-17 10:16] LABS: Alanine Aminotransferase 20 IU/L (<35); Albumin Globulin Ratio 1.6 (1.0-2.8); Alkaline Phosphatase 85 U/L (38-126); Aspartate Aminotransferase 30 IU/L (14-36); BUN Creatinine Ratio 25.4 (6-22); Bilirubin Total 0.6 mg/dL (0.2-1.3); Blood Urea Nitrogen 18 mg/dL (7-17); Calcium 10.1 mg/dL (8.4-10.2); Carbon Dioxide 29 mmol/L (22-32); Chloride 104 mmol/L (98-107); Cholesterol 157 mg/dL (140-199); Estimated Glomerular Filt Rate > 60.0 mL/min (>60); Globulin 2.5 g/dL (1.7-4.1); Glucose 102 mg/dL (80-110); HDL Cholesterol 60 mg/dL (40-60); HEMOLYSIS < 15 (0-50); LDL Cholesterol Calculated 78 mg/dL (<100); Potassium 4.3 mmol/L (3.4-5.1); Sodium 137 mmol/L (137-145); Total Protein 6.5 g/dL (6.3-8.2); Triglycerides 93 mg/dL (35-150)
[2021-11-17 10:30] LABS: Vitamin D 25 Hydroxy (D3) 43.4 ng/mL (30.0-100.0)
[2021-11-17 10:34] LABS: Free T3, Triiodothyronine Free 4.89 pg/mL (2.77-5.27); Free T4, Direct Thyroxine 1.35 ng/dL (0.78-2.19)
[2021-11-17 10:47] LABS: Thyroid Stimulating Hormone 0.029 uIU/mL (0.47-4.68)
== END ==
PROVIDERS: PCP Family Medicine; Referring Provider Family Medicine; Visit Provider Family Medicine
DX: E03.9 Hypothyroidism, unspecified (principal); I10 Essential (primary) hypertension; M81.0 Age-related osteoporosis without current pathological fracture; E78.5 Hyperlipidemia, unspecified
CPT/HCPCS: 36415; 80053; 80061; 82306; 84439; 84443; 84481; 85025

== ENCOUNTER → 2021-11-26 09:39 | Outpatient (CLI) | payer MEDICARE, OTHER, SELFPAY ==
[2019-10-16 10:42] VITALS: BMI 30.9
--- NOTE | 2021-11-26 09:41 | DI.RAD.S_ITS ---
PROCEDURE: XR HAND RT MIN 3V INDICATIONS: joint pain TECHNIQUE: 3 views of the hand(s) acquired. COMPARISON: None. FINDINGS: Bones: No fractures or dislocations. Carpal bones are normally aligned. No suspicious bony lesions. Moderate triscaphe and severe 1st CMC joint space narrowing with periarticular osteophyte formation. Minimal joint narrowing involving the interphalangeal joints. No definitive bony erosions. Soft tissues: No suspicious soft tissue calcifications. Chondrocalcinosis involves the radial and ulnar carpal joints. IMPRESSION: 1. Diffuse joint degeneration, most notably and severe involving the 1st CMC joint. 2. Chondrocalcinosis. Differential diagnosis includes but is not limited to hemochromatosis, hyperparathyroidism and CPPD. Dictated by: Timoteo Morgan [facility] Interpreted: Sandro Arias MD on 11/26/2021 at 10:13 Transcribed by: DYLAN on 11/26/2021 at 10:14 Approved by: Sandro Arias M.D. on 11/26/2021 at 11:48
--- NOTE | 2021-11-26 09:41 | DI.RAD.S_ITS ---
PROCEDURE: XR HAND LT MIN 3V INDICATIONS: joint pain TECHNIQUE: 3 views of the hand(s) acquired. COMPARISON: [facility], CR, XR HAND RT MIN 3V, 11/26/2021, 11:05. FINDINGS: Bones: No fractures or dislocations. Carpal bones are normally aligned. No suspicious bony lesions. Polyarticular joint space narrowing with periarticular osteophytosis, most notably and severe involving the 1st CMC joint. Juxta-articular lucencies are present involving multiple interphalangeal joints as well as the 1st CMC joint. Well corticated osseous density adjacent to the ulnar aspect of the 5th PIP joint. Soft tissues: No suspicious soft tissue calcifications. Chondrocalcinosis. IMPRESSION: 1. Diffuse joint degeneration, severe involving the 1st CMC joint and there are multiple juxta-articular lucencies involving several interphalangeal joints consistent with subchondral cystic change versus bony erosions. 2. Chondrocalcinosis. Differential diagnosis includes but is not limited to hemochromatosis, hyperparathyroidism and CPPD. Dictated by: Timoteo Morgan [facility] Interpreted: Sandro Arias MD on 11/26/2021 at 10:15 Transcribed by: DYLAN on 11/26/2021 at 10:16 Approved by: Sandro Arias M.D. on 11/26/2021 at 11:48
[2021-11-26 12:45] LABS: Rheumatoid Factor < 8.6 IU/mL (<12.0)
[2021-11-28 13:45] LABS: ANA Screen, IFA Negative (.)
[2021-12-01 18:24] LABS: CCP Antibodies IgG/IgA 3 units (0-19)
== END ==
PROVIDERS: PCP Family Medicine; Referring Provider Family Medicine; Visit Provider Family Medicine
DX: M18.0 Bilateral primary osteoarthritis of first carpometacarpal joints (principal); M11.242 Other chondrocalcinosis, left hand; M11.241 Other chondrocalcinosis, right hand; M65.30 Trigger finger, unspecified finger; M79.641 Pain in right hand; M79.642 Pain in left hand
CPT/HCPCS: 36415; 73130; 86038; 86200; 86430

== ENCOUNTER → 2022-03-11 06:56 | Outpatient (CLI) | payer MEDICARE, OTHER, SELFPAY ==
[2019-10-16 10:42] VITALS: BMI 30.9
[2022-03-11 08:21] LABS: Add Manual Diff / Slide Review NO; Basophils Absolute Auto 0 /uL (0-100); Basophils Percent Auto 0.7 % (0-2); Eosinophils Absolute Auto 100 /uL (0-450); Eosinophils Percent Auto 2.2 % (2-4); Hematocrit 39.9 % (36-46); Hemoglobin 13.7 g/dL (12.0-16.0); Lymphocytes Absolute Auto 1100 /uL (1100-4500); Lymphocytes Percent Auto 23.7 % (25-40); Mean Corpuscular HGB Conc 34.4 % (30-36); Mean Corpuscular Hemoglobin 30.9 PG (26-34); Monocytes Absolute Auto 300 /uL (0-900); Monocytes Percent Auto 6.8 % (3-14); Neutrophils Absolute Auto 3200 /uL (1500-7000); Neutrophils Percent Auto 66.6 % (50-75); Platelet Count 213 X10^3/uL (150-400); Red Blood Cell Count 4.43 X10^6/uL (4.0-5.2); Red Cell Distribution Width 13.9 % (11.6-14.8); White Blood Cell Count 4.7 X10^3/uL (4.5-11.0)
[2022-03-11 09:26] LABS: Alanine Aminotransferase 19 IU/L (<35); Albumin 4.1 g/dL (3.5-5.0); Albumin Globulin Ratio 1.7 (1.0-2.8); Alkaline Phosphatase 81 U/L (38-126); Aspartate Aminotransferase 27 IU/L (14-36); BUN Creatinine Ratio 26.4 (6-22); Bilirubin Total 0.5 mg/dL (0.2-1.3); Blood Urea Nitrogen 19 mg/dL (7-17); Calcium 9.7 mg/dL (8.4-10.2); Carbon Dioxide 30 mmol/L (22-32); Chloride 101 mmol/L (98-107); Cholesterol 184 mg/dL (140-199); Estimated Glomerular Filt Rate > 60 mL/min (>60); Globulin 2.4 g/dL (1.7-4.1); Glucose 98 mg/dL (80-110); HDL Cholesterol 71 mg/dL (40-60); HEMOLYSIS < 15 (0-50); LDL Cholesterol Calculated 89 mg/dL (<100); Sodium 137 mmol/L (137-145); Total Protein 6.5 g/dL (6.3-8.2); Triglycerides 118 mg/dL (35-150)
[2022-03-11 09:45] LABS: Free T3, Triiodothyronine Free 4.09 pg/mL (2.77-5.27); Free T4, Direct Thyroxine 1.28 ng/dL (0.78-2.19)
[2022-03-11 09:59] LABS: Thyroid Stimulating Hormone 0.043 uIU/mL (0.47-4.68)
== END ==
PROVIDERS: PCP Family Medicine; Referring Provider Family Medicine; Visit Provider Family Medicine
DX: E03.9 Hypothyroidism, unspecified (principal); E78.5 Hyperlipidemia, unspecified
CPT/HCPCS: 36415; 80053; 80061; 84439; 84443; 84481; 85025

== ENCOUNTER → 2022-04-07 15:01 | Outpatient (CLI) | payer MEDICARE, OTHER, SELFPAY ==
[2019-10-16 10:42] VITALS: BMI 30.9
[2022-04-14 12:41] LABS: Acetylcholine Blocking AB 23 % (0-25); Acetylcholine Receptor Bind AB <0.03 nmol/L (0.00-0.24)
== END ==
PROVIDERS: PCP Family Medicine; Referring Provider Family Medicine; Visit Provider Family Medicine
DX: R29.898 Other symptoms and signs involving the musculoskeletal system (principal)
CPT/HCPCS: 83519

== ENCOUNTER 2022-07-16 14:17 | Emergency (ER) | payer MEDICARE, OTHER, SELFPAY ==
[2019-10-16 10:42] VITALS: BMI 30.9
[2022-07-16 14:22] VITALS: BP 149/74; PULSE 73; RESP 15; TEMP 36; O2SAT 98; BMI 30.5
--- NOTE | 2022-07-16 14:24 | DI.RAD.S_ITS ---
PROCEDURE: XR CHEST 1V INDICATIONS: chest pain TECHNIQUE: One view of the chest was acquired. COMPARISON: [facility], , CHEST 1 VIEW, 07/08/2015, 9:22. FINDINGS: Surgical changes and devices: None. Lungs and pleura: Lungs are clear. No pleural effusions or pneumothorax. Mediastinum: Mediastinal contours appear normal. Heart size is normal. Bones and chest wall: No suspicious bony lesions. Overlying soft tissues appear unremarkable. IMPRESSION: No acute cardiopulmonary abnormality. Dictated by: Veto Garcia M.D. on 07/16/2022 at 15:31 Approved by: Veto Garcia M.D. on 07/16/2022 at 15:31
[2022-07-16 14:51] LABS: Add Manual Diff / Slide Review NO; Basophils Absolute Auto 0 /uL (0-100); Basophils Percent Auto 0.7 % (0-2); Eosinophils Absolute Auto 100 /uL (0-450); Eosinophils Percent Auto 1.5 % (2-4); Hematocrit 38.3 % (36-46); Hemoglobin 13.3 g/dL (12.0-16.0); Lymphocytes Absolute Auto 1500 /uL (1100-4500); Lymphocytes Percent Auto 28.1 % (25-40); Mean Corpuscular HGB Conc 34.8 % (30-36); Mean Corpuscular Hemoglobin 31.2 PG (26-34); Mean Corpuscular Volume 89.4 fL (80-100); Monocytes Absolute Auto 400 /uL (0-900); Monocytes Percent Auto 6.7 % (3-14); Neutrophils Absolute Auto 3300 /uL (1500-7000); Platelet Count 224 X10^3/uL (150-400); Prothrombin Time 11.4 SECONDS (10.1-12.7); Red Blood Cell Count 4.28 X10^6/uL (4.0-5.2); Red Cell Distribution Width 13.7 % (11.6-14.8); White Blood Cell Count 5.2 X10^3/uL (4.5-11.0)
[2022-07-16 14:54] LABS: PTT Partial Thromboplastin Tim 30 SECONDS (26-36)
[2022-07-16 14:58] LABS: Alanine Aminotransferase 21 IU/L (<35); Albumin 4.2 g/dL (3.5-5.0); Albumin Globulin Ratio 1.4 (1.0-2.8); Alkaline Phosphatase 87 U/L (38-126); Aspartate Aminotransferase 31 IU/L (14-36); BUN Creatinine Ratio 23.9 (6-22); Bilirubin Total 0.5 mg/dL (0.2-1.3); Blood Urea Nitrogen 17 mg/dL (7-17); Calcium 9.8 mg/dL (8.4-10.2); Carbon Dioxide 26 mmol/L (22-32); Chloride 101 mmol/L (98-107); Creatine Kinase 97 U/L (30-135); Estimated Glomerular Filt Rate > 60 mL/min (>60); Globulin 2.9 g/dL (1.7-4.1); Glucose 129 mg/dL (80-110); HEMOLYSIS < 15 (0-50); Lipase 165 U/L (23-300); Magnesium 2.1 mg/dL (1.6-2.3); Potassium 3.7 mmol/L (3.4-5.1); Sodium 134 mmol/L (137-145); Total Protein 7.1 g/dL (6.3-8.2)
[2022-07-16 15:10] LABS: Troponin I < 0.012 ng/mL (0.01-0.034)
[2022-07-16 16:20] VITALS: O2SAT 98
[2022-07-16 16:21] VITALS: BP 161/70; PULSE 65; RESP 18; O2SAT 98
--- NOTE | 2022-07-16 16:25 | ED.CHESTPAIN ---
HPI - Chest Pain <Ravi BenitezCLEVE burnette - Last Filed: 07/16/22 17:26> General Chief Complaint: Chest Pain Stated Complaint: Thinks heart attack Time Seen by Provider: 07/16/22 16:25 Source: patient Mode of arrival: Ambulatory Limitations: no limitations History of Present Illness HPI narrative: 76-year-old female, nonsmoker with history of hypertension, presents to the emergency department with concerns that she is having a heart attack. Patient endorses that she suffers from GERD and noticed some heartburn last night that was relieved with antacids. Patient awoke this morning and felt a pressure in her chest that radiated to her right shoulder and to her shoulder blade. Patient denies having any shortness of breath, diaphoresis, etc.. Patient is especially worried about this as her mother had issues with her heart. Related Data Home Medications Medication Instructions Recorded Confirmed calcium carb 333 mg-vit D3 133 1 tab PO BID 11/17/19 07/10/22 unit-mag ox 133 mg-zinc oxide 5 mg tab Cheleated Magnesium Glycinate PO BID 10/03/20 07/10/22 acetylcarnitine 500 mg capsule 500 mg PO DAILY 10/03/20 07/10/22 esomeprazole magnesium 20 mg 20 mg PO DAILY 10/03/20 07/10/22 capsule,delayed release (Nexium 24HR) folic acid-vit B6-vit B12 0.8 1 tab PO DAILY 10/03/20 07/10/22 mg-50 mg-100 mcg tablet (Homocysteine Formula) potassium gluconate 550 mg (90 mg) 550 mg PO DAILY 10/03/20 07/10/22 tablet coenzyme Q10 PO 04/08/22 07/10/22 Previous Rx's Medication Instructions Recorded triamterene 37.5 See Rx Instructions .Route 03/04/22 mg-hydrochlorothiazide 25 mg tablet .COMPLEX #90 tabs sertraline 50 mg tablet See Rx Instructions .Route 03/12/22 .COMPLEX #90 tabs levothyroxine 50 mcg tablet See Rx Instructions .Route 03/19/22 .COMPLEX #90 tabs thyroid (pork) 60 mg tablet See Rx Instructions .Route 03/19/22 ([place] Thyroid) .COMPLEX #90 tabs bupropion HCl 75 mg tablet 75 mg PO BID #180 tabs 04/20/22 rosuvastatin 10 mg tablet See Rx Instructions .Route 06/26/22 .COMPLEX #90 tabs Progesterone E4M #90 caps 06/30/22 Allergies Allergy/AdvReac Type Severity Reaction Status Date / Time omeprazole AdvReac Severe DRY MOUTH, Verified 07/16/22 14:22 changed taste sensations Review of Systems <CLEVE Helm - Last Filed: 07/16/22 17:26> Review of Systems Narrative: Narrative: GENERAL: Denies chills, fatigue, fever, sweats. See HPI HEENT: Denies sinus pain, ear pain, sore throat, difficulty swallowing, dizziness. RESPIRATORY: Denies dyspnea, cough, wheezing, sputum. CARDIOVASCULAR: Denies palpitations, edema. Endorses chest pressure initially that has resolved after belching. GASTROINTESTINAL: Denies nausea, vomiting, abdominal pain, diarrhea, constipation. : Denies dysuria, frequency, incontinence, hematuria, urinary retention, flank pain. MSK: Denies weakness, joint pain, or bony pain. SKIN: Denies rash, skin lesions, or pruritis. NEUROLOGIC: Denies weakness, dizziness, headache, numbness, confusion. PSYCHIATRIC: No concerning psychosocial issues. Patient History <CLEVE Helm - Last Filed: 07/16/22 17:26> Medical History Bilateral arm pain Bilateral hand numbness Bilateral hand pain Cervical somatic dysfunction Chronic pain of left lower extremity Chronic pain of right knee Cranial somatic dysfunction Cyst Depression (Unknown) Diverticulitis Diverticulitis large intestine GERD (gastroesophageal reflux disease) (Unknown) Hair loss HTN (hypertension) Hyperlipemia (Unknown) Hypothyroidism (Unknown) Neck stiffness Osteopenia (~12/2015) Osteoporosis Palpitations PVC's (premature ventricular contractions) Segmental and somatic dysfunction of rib cage Somatic dysfunction of lower extremity Thoracic region somatic dysfunction TIA (transient ischemic attack) (2013) Transient left leg weakness Tremor of left hand Trigger finger Upper extremity somatic dysfunction Surgical History History of left hip replacement Hx of cataract surgery Hx of section (Unknown) Hx of cholecystectomy (Unknown) Hx of tonsillectomy (Unknown) Status post ORIF of fracture of ankle (03/2016) Family History Father Hypertension Mother Hypertension Sister Bipolar 1 disorder Social History household members: spouse Smoking Status: Never smoker alcohol intake: current Smoking Status: Never smoker alcohol intake frequency: holidays/special occasions only Substance Use Type: marijuana Exam <CLEVE Helm - Last Filed: 07/16/22 17:26> Narrative Exam Narrative: Exam Narrative: GENERAL: This is a well-nourished, well-developed patient, in no acute distress HEAD: Atraumatic. Normocephalic. EYES: Pupils equal round and reactive. Extraocular motions intact. No scleral icterus, injection or drainage. CARDIOVASCULAR: Regular rate and rhythm without murmurs, peripheral pulses intact, cap refill <2 sec. RESPIRATORY: Breath sounds equal and clear bilaterally. No wheezes, rales, or rhonchi. No cough. No increased respiratory effort. No accessory muscle use. GASTROINTESTINAL: Abdomen soft, non-tender, nondistended without guarding or rebound. No suprapubic pain. MSK: Moves all extremities. Normal range of motion, no clubbing or edema. Neurovascularly intact. NEURO: A&O x 3. SKIN: Warm, dry, no rashes or lesions noted. Initial Vital Signs Initial Vital Signs: Vital Signs Temperature 96.8 F L 07/16/22 14:22 Pulse Rate 73 07/16/22 14:22 Respiratory Rate 15 07/16/22 14:22 Blood Pressure 149/74 H 07/16/22 14:22 Pulse Oximetry 98 07/16/22 14:22 Oxygen Delivery Method 07/16/22 14:22 Reviewed <Damaris Escobar DO - Last Filed: 07/17/22 09:13> Initial Vital Signs Initial Vital Signs: Vital Signs Temperature 96.8 F L 07/16/22 14:22 Pulse Rate 73 07/16/22 14:22 Respiratory Rate 15 07/16/22 14:22 Blood Pressure 149/74 H 07/16/22 14:22 Pulse Oximetry 98 07/16/22 14:22 Oxygen Delivery Method 07/16/22 14:22 Scores <CLEVE Helm - Last Filed: 07/16/22 17:26> HEART Score Heart Score history: Slightly Suspicious Heart Score EKG: Normal Heart Score Age: > or = 65 years old Heart Score risk factors: 1-2 risk factors Heart Score troponin: < or = to normal limit Heart Score Total: 3 <Damaris Escobar DO - Last Filed: 07/17/22 09:13> HEART Score Heart Score Total: 3 Course <CLEVE Helm - Last Filed: 07/16/22 17:26> Orders Ordered: ED Orders 07/16/22 14:24 XR chest 1V Stat 07/16/22 14:30 Complete Blood Count AUTO DIFF Stat Comprehensive Metabolic Panel Stat Lipase Stat Magnesium Stat Partial Thromboplastin Time Stat Prothrombin Time INR Stat Troponin & CK Cardiac Panel Stat 07/16/22 14:33 EKG-12 Lead Stat 07/16/22 16:45 Troponin I Stat Vital Signs Vital signs: Vital Signs - 8 hr 07/16/22 14:22 07/16/22 16:20 07/16/22 16:21 Temperature 96.8 F L Pulse Rate 73 Respiratory Rate 15 18 Blood Pressure 149/74 H 161/70 H Pulse Oximetry 98 98 Oxygen Delivery Method Room Air 07/16/22 16:21 Temperature Pulse Rate 65 Respiratory Rate Blood Pressure Pulse Oximetry 98 Oxygen Delivery Method <Damaris Escobar DO - Last Filed: 07/17/22 09:13> Orders Ordered: ED Orders 07/16/22 14:24 XR chest 1V Stat 07/16/22 14:30 Complete Blood Count AUTO DIFF Stat Comprehensive Metabolic Panel Stat Lipase Stat Magnesium Stat Partial Thromboplastin Time Stat Prothrombin Time INR Stat Troponin & CK Cardiac Panel Stat 07/16/22 14:33 EKG-12 Lead Stat 07/16/22 16:45 Troponin I Stat Vital Signs Vital signs: Vital Signs - 8 hr 07/16/22 14:22 07/16/22 16:20 07/16/22 16:21 Temperature 96.8 F L Pulse Rate 73 Respiratory Rate 15 18 Blood Pressure 149/74 H 161/70 H Pulse Oximetry 98 98 Oxygen Delivery Method Room Air 07/16/22 16:21 Temperature Pulse Rate 65 Respiratory Rate Blood Pressure Pulse Oximetry 98 Oxygen Delivery Method MDM - Chest Pain <CLEVE Helm - Last Filed: 07/16/22 17:26> Differential Diagnosis Differential diagnosis: Likely atypical chest pain Lab Data Result diagrams: 07/16/22 14:30 07/16/22 14:30 Labs: Lab Results 07/16/22 07/16/22 07/16/22 Range/Units 14:30 14:30 14:30 WBC 5.2 (4.5-11.0) X10^3/uL RBC 4.28 (4.0-5.2) X10^6/uL Hgb 13.3 (12.0-16.0) g/dL Hct 38.3 (36-46) % MCV 89.4 (80-100) fL MCH 31.2 (26-34) PG MCHC 34.8 (30-36) % RDW 13.7 (11.6-14.8) % Plt Count 224 (150-400) X10^3/uL Neut % (Auto) 63.0 (50-75) % Lymph % (Auto) 28.1 (25-40) % [place] % (Auto) 6.7 (3-14) % Eos % (Auto) 1.5 L (2-4) % Baso % (Auto) 0.7 (0-2) % Neut # (Auto) 3300 (7265-0762) /uL Lymph # (Auto) 1500 (8390-4129) /uL [place] # (Auto) 400 (0-900) /uL Eos # (Auto) 100 (0-450) /uL Baso # (Auto) 0 (0-100) /uL PT 11.4 (10.1-12.7) SECONDS INR 1.0 (0.9-1.3) APTT 30 (26-36) SECONDS Sodium 134 L (137-145) mmol/L Potassium 3.7 (3.4-5.1) mmol/L Chloride 101 (98-107) mmol/L Carbon Dioxide 26 (22-32) mmol/L BUN 17 (7-17) mg/dL Creatinine 0.71 (0.52-1.04) mg/dL Estimated GFR > 60 (>60) mL/min BUN/Creatinine Ratio 23.9 H (6-22) Glucose 129 H (80-110) mg/dL Calcium 9.8 (8.4-10.2) mg/dL Magnesium 2.1 (1.6-2.3) mg/dL Total Bilirubin 0.5 (0.2-1.3) mg/dL AST 31 (14-36) IU/L ALT 21 (<35) IU/L Alkaline Phosphatase 87 (38-126) U/L Total Creatine Kinase 97 (30-135) U/L CK-MB (CK-2) TNP CK-MB (CK-2) Rel Index TNP Troponin I < 0.012 (0.01-0.034) ng/mL Total Protein 7.1 (6.3-8.2) g/dL Albumin 4.2 (3.5-5.0) g/dL Globulin 2.9 (1.7-4.1) g/dL Albumin/Globulin Ratio 1.4 (1.0-2.8) Lipase 165 (23-300) U/L 07/16/22 Range/Units 16:45 WBC (4.5-11.0) X10^3/uL RBC (4.0-5.2) X10^6/uL Hgb (12.0-16.0) g/dL Hct (36-46) % MCV (80-100) fL MCH (26-34) PG MCHC (30-36) % RDW (11.6-14.8) % Plt Count (150-400) X10^3/uL Neut % (Auto) (50-75) % Lymph % (Auto) (25-40) % [place] % (Auto) (3-14) % Eos % (Auto) (2-4) % Baso % (Auto) (0-2) % Neut # (Auto) (5013-4400) /uL Lymph # (Auto) (4018-0563) /uL [place] # (Auto) (0-900) /uL Eos # (Auto) (0-450) /uL Baso # (Auto) (0-100) /uL PT (10.1-12.7) SECONDS INR (0.9-1.3) APTT (26-36) SECONDS Sodium (137-145) mmol/L Potassium (3.4-5.1) mmol/L Chloride (98-107) mmol/L Carbon Dioxide (22-32) mmol/L BUN (7-17) mg/dL Creatinine (0.52-1.04) mg/dL Estimated GFR (>60) mL/min BUN/Creatinine Ratio (6-22) Glucose (80-110) mg/dL Calcium (8.4-10.2) mg/dL Magnesium (1.6-2.3) mg/dL Total Bilirubin (0.2-1.3) mg/dL AST (14-36) IU/L ALT (<35) IU/L Alkaline Phosphatase (38-126) U/L Total Creatine Kinase (30-135) U/L CK-MB (CK-2) CK-MB (CK-2) Rel Index Troponin I < 0.012 (0.01-0.034) ng/mL Total Protein (6.3-8.2) g/dL Albumin (3.5-5.0) g/dL Globulin (1.7-4.1) g/dL Albumin/Globulin Ratio (1.0-2.8) Lipase (23-300) U/L Imaging Data Chest x-ray: Radiologist's Impression: [address] [address] XRay Report Signed Patient: Martha Weeks MR#: [id number] : 1945 Acct:[id number] Age/Sex: 76 / F Date of Service: 07/16/22 Loc: ED Accession Number: [id number] ?? Procedure: XR chest 1V Ordering Provider: Damaris Escobar D.O. PROCEDURE:? XR CHEST 1V ? INDICATIONS:? chest pain ? TECHNIQUE:? One view of the chest was acquired.? ? COMPARISON:? [facility], , CHEST 1 VIEW, 07/08/2015, 9:22. ? FINDINGS:? ? Surgical changes and devices:? None.? ? Lungs and pleura:? Lungs are clear.? No pleural effusions or pneumothorax.? ? Mediastinum:? Mediastinal contours appear normal.? Heart size is normal.? ? Bones and chest wall:? No suspicious bony lesions.? Overlying soft tissues appear unremarkable.? ? IMPRESSION:? No acute cardiopulmonary abnormality. ? ? Dictated by: Veto Garcia M.D. on 07/16/2022 at 15:31 ? ? Approved by: Veto Garcia M.D. on 07/16/2022 at 15:31 ? ECG Data Attestation: I personally reviewed and interpreted this ECG as follows: Prior ECG tracings: available for review Interpretation: NSR w/ vent rate of [address]-t changes MDM Narrative Medical decision making narrative: 76-year-old female that presents emergency department with chest heaviness since this morning. Heart score of 3. Chest x-ray, EKG and labs were all normal. Repeat troponin was normal. I suspect that the symptoms may be related to her GERD. Discussed methods of improving GERD symptoms. Discussed plan of care and return precautions with patient, who is agreeable with course of action. <Damaris Escobar, DO - Last Filed: 07/17/22 09:13> Lab Data Labs: Lab Results 07/16/22 07/16/22 07/16/22 Range/Units 14:30 14:30 14:30 WBC 5.2 (4.5-11.0) X10^3/uL RBC 4.28 (4.0-5.2) X10^6/uL Hgb 13.3 (12.0-16.0) g/dL Hct 38.3 (36-46) % MCV 89.4 (80-100) fL MCH 31.2 (26-34) PG MCHC 34.8 (30-36) % RDW 13.7 (11.6-14.8) % Plt Count 224 (150-400) X10^3/uL Neut % (Auto) 63.0 (50-75) % Lymph % (Auto) 28.1 (25-40) % [place] % (Auto) 6.7 (3-14) % Eos % (Auto) 1.5 L (2-4) % Baso % (Auto) 0.7 (0-2) % Neut # (Auto) 3300 (2934-8720) /uL Lymph # (Auto) 1500 (4085-7888) /uL [place] # (Auto) 400 (0-900) /uL Eos # (Auto) 100 (0-450) /uL Baso # (Auto) 0 (0-100) /uL PT 11.4 (10.1-12.7) SECONDS INR 1.0 (0.9-1.3) APTT 30 (26-36) SECONDS Sodium 134 L (137-145) mmol/L Potassium 3.7 (3.4-5.1) mmol/L Chloride 101 (98-107) mmol/L Carbon Dioxide 26 (22-32) mmol/L BUN 17 (7-17) mg/dL Creatinine 0.71 (0.52-1.04) mg/dL Estimated GFR > 60 (>60) mL/min BUN/Creatinine Ratio 23.9 H (6-22) Glucose 129 H (80-110) mg/dL Calcium 9.8 (8.4-10.2) mg/dL Magnesium 2.1 (1.6-2.3) mg/dL Total Bilirubin 0.5 (0.2-1.3) mg/dL AST 31 (14-36) IU/L ALT 21 (<35) IU/L Alkaline Phosphatase 87 (38-126) U/L Total Creatine Kinase 97 (30-135) U/L CK-MB (CK-2) TNP CK-MB (CK-2) Rel Index TNP Troponin I < 0.012 (0.01-0.034) ng/mL Total Protein 7.1 (6.3-8.2) g/dL Albumin 4.2 (3.5-5.0) g/dL Globulin 2.9 (1.7-4.1) g/dL Albumin/Globulin Ratio 1.4 (1.0-2.8) Lipase 165 (23-300) U/L 07/16/22 Range/Units 16:45 WBC (4.5-11.0) X10^3/uL RBC (4.0-5.2) X10^6/uL Hgb (12.0-16.0) g/dL Hct (36-46) % MCV (80-100) fL MCH (26-34) PG MCHC (30-36) % RDW (11.6-14.8) % Plt Count (150-400) X10^3/uL Neut % (Auto) (50-75) % Lymph % (Auto) (25-40) % [place] % (Auto) (3-14) % Eos % (Auto) (2-4) % Baso % (Auto) (0-2) % Neut # (Auto) (3145-3053) /uL Lymph # (Auto) (5578-3675) /uL [place] # (Auto) (0-900) /uL Eos # (Auto) (0-450) /uL Baso # (Auto) (0-100) /uL PT (10.1-12.7) SECONDS INR (0.9-1.3) APTT (26-36) SECONDS Sodium (137-145) mmol/L Potassium (3.4-5.1) mmol/L Chloride (98-107) mmol/L Carbon Dioxide (22-32) mmol/L BUN (7-17) mg/dL Creatinine (0.52-1.04) mg/dL Estimated GFR (>60) mL/min BUN/Creatinine Ratio (6-22) Glucose (80-110) mg/dL Calcium (8.4-10.2) mg/dL Magnesium (1.6-2.3) mg/dL Total Bilirubin (0.2-1.3) mg/dL AST (14-36) IU/L ALT (<35) IU/L Alkaline Phosphatase (38-126) U/L Total Creatine Kinase (30-135) U/L CK-MB (CK-2) CK-MB (CK-2) Rel Index Troponin I < 0.012 (0.01-0.034) ng/mL Total Protein (6.3-8.2) g/dL Albumin (3.5-5.0) g/dL Globulin (1.7-4.1) g/dL Albumin/Globulin Ratio (1.0-2.8) Lipase (23-300) U/L ECG Data Interpretation: NSR w/ vent rate of [address]-t changes Discharge Plan Departure Patient Disposition: Home Clinical Impression: Atypical chest pain Instructions: DI for Gastroesophageal Reflux Disease (GERD), DI for Atypical Chest Pain, GERD Diet Activity Restrictions/Additional Instructions: *You have been diagnosed with atypical chest pain. Your chest x-ray, EKG and labs were all normal. I am not sure what has caused your chest heaviness, but believe it may be attributed to your GERD. We have discussed some of the things that cause GERD and am sending you home with some discharge paperwork regarding GERD. Please follow-up with your family doctor to ensure they are aware that you were seen in the emergency department. For any worsening symptoms that include, increasing chest pain, difficulty breathing, etc. feel free to return to the emergency department. *What to do: *Please continue to take your regular medications as directed. [ ] New medication prescriptions sent to your pharmacy: [ ] [ ] New medication written as a paper prescription [x ] No new medications given *Please follow up with your primary care provider in 2-3 days, call for an appointment. Let them know you were seen in the Emergency Department and that we ask that you be seen in follow up. We will electronically transmit a record of today's note if your PCP is in our system *If you do not have a primary care provider please contact the [facility] Resource line at [phone]. They will ask some questions about your medical history and help get you set up with a doctor in the community. ? Return to ER if you should have any new, worsening or concerning symptoms, such as worsening pain, severe headache, confusion, chest pain, difficulty breathing, fever greater than 101 F, shaking chills, persistent vomiting to the point that you cannot drink fluids, or other new or worsening symptoms. Prescriptions: No Action triamterene-hydrochlorothiazid 37.5-25 mg tablet See Rx Instructions .ROUTE .COMPLEX Qty: 90 3RF Dose Instruction: take 1 tablet by mouth once daily Rx Instructions: take 1 tablet by mouth once daily sertraline 50 mg tablet See Rx Instructions .ROUTE .COMPLEX Qty: 90 3RF Dose Instruction: take 1 tablet by mouth once daily Rx Instructions: take 1 tablet by mouth once daily thyroid (pork) [[place] Thyroid] 60 mg tablet See Rx Instructions .ROUTE .COMPLEX Qty: 90 3RF Dose Instruction: take 1 tablet by mouth once daily Rx Instructions: take 1 tablet by mouth once daily levothyroxine 50 mcg tablet See Rx Instructions .ROUTE .COMPLEX Qty: 90 3RF Dose Instruction: take 1 tablet by mouth once daily Rx Instructions: take 1 tablet by mouth once daily bupropion HCl 75 mg tablet 75 mg PO BID Qty: 180 0RF rosuvastatin 10 mg tablet See Rx Instructions .ROUTE .COMPLEX Qty: 90 3RF Dose Instruction: take 1 tablet by mouth at bedtime Rx Instructions: take 1 tablet by mouth at bedtime (DME) PROGESTERONE E4M 125MG CAPSULE 125MG CAPSULE See Rx Instructions .ROUTE .COMPLEX Qty: 90 3RF Dose Instruction: Take 1 capsule by mouth each night at bedtime Rx Instructions: Take 1 capsule by mouth each night at bedtime esomeprazole magnesium [Nexium 24HR] 20 mg capsule,delayed release(DR/EC) 20 mg PO DAILY Cheleated Magnesium Glycinate 400 mg PO BID potassium gluconate 550 mg (90 mg) tablet 550 mg PO DAILY acetylcarnitine 500 mg capsule 500 mg PO DAILY Homocysteine Formula 0.8-50-100 mg-mg-mcg tablet 1 tab PO DAILY coenzyme Q10 PO calcium carb-D3-mag ox-zinc ox 333 mg-133 unit -133 mg-5 mg Tablet 1 tab PO BID Referrals: Thony Briscoe DO [Primary Care Provider] - Visit Report Forms: Patient Portal/API <Damaris Escobar DO - Last Filed: 07/17/22 09:13> Cosign ED Attending Cosignature Attestation: I was immediately available in the department for consultation. Documentation has been reviewed. I agree with assessment and plan.
[2022-07-16 16:30] VITALS: BP 133/65; PULSE 59; RESP 12; O2SAT 97
[2022-07-16 17:00] VITALS: BP 141/69; PULSE 59; RESP 11; O2SAT 97
[2022-07-16 17:19] LABS: Troponin I < 0.012 ng/mL (0.01-0.034)
== END 2022-07-16 17:36 | disposition home or self-care (01) ==
PROVIDERS: Emergency Medicine; Emergency Provider Registered Nurse; PCP Family Medicine
DX: R07.89 Other chest pain (principal)
CPT/HCPCS: 36415; 71045; 80053; 82550; 83690; 83735; 84484; 85025; 85610; 85730; 93005; 93010; 99284

== ENCOUNTER 2022-08-18 14:49 | Inpatient (IN) | payer MEDICARE, OTHER, SELFPAY ==
[2019-10-16 10:42] VITALS: BMI 30.9
[2022-08-18] VITALS (28 sets, daily range): BP systolic 53–127; BP diastolic 32–72; PULSE 74–94; RESP 16–35; TEMP 30–37.1; O2SAT 86–100; BMI 30.4; BMI 33.3
--- NOTE | 2022-08-18 15:05 | PC.NURSE ---
Pt room air sats 87-88% upon arrival. Placed on 2L and sats increased to mid 90s. Pt dry heaving and vomiting scant amounts. Denies pain except in throat from vomiting. Alert and oriented.
--- NOTE | 2022-08-18 15:10 | DI.RAD.S_ITS ---
PROCEDURE: XR CHEST 1V INDICATIONS: chest pain TECHNIQUE: One view of the chest was acquired. COMPARISON: [facility], CR, XR CHEST 1V, 07/16/2022, 14:52. FINDINGS: Surgical changes and devices: None. Lungs and pleura: Lungs are clear. No pleural effusions or pneumothorax. Mediastinum: Mediastinal contours appear normal. Heart size is normal. Bones and chest wall: No suspicious bony lesions. Overlying soft tissues appear unremarkable. IMPRESSION: No acute cardiopulmonary process demonstrated radiographically. Dictated by: Norris Mo M.D. on 08/18/2022 at 15:39 Approved by: Norris Mo M.D. on 08/18/2022 at 15:40
[2022-08-18 15:28] LABS: Add Manual Diff / Slide Review NO; Basophils Absolute Auto 0 /uL (0-100); Basophils Percent Auto 0.7 % (0-2); Eosinophils Absolute Auto 100 /uL (0-450); Eosinophils Percent Auto 1.5 % (2-4); Hematocrit 36.9 % (36-46); Hemoglobin 12.7 g/dL (12.0-16.0); Lymphocytes Absolute Auto 2200 /uL (1100-4500); Mean Corpuscular HGB Conc 34.5 % (30-36); Mean Corpuscular Hemoglobin 30.5 PG (26-34); Mean Corpuscular Volume 88.3 fL (80-100); Monocytes Absolute Auto 400 /uL (0-900); Monocytes Percent Auto 5.7 % (3-14); Neutrophils Absolute Auto 3400 /uL (1500-7000); Neutrophils Percent Auto 56.1 % (50-75); Platelet Count 254 X10^3/uL (150-400); Red Blood Cell Count 4.18 X10^6/uL (4.0-5.2); Red Cell Distribution Width 13.8 % (11.6-14.8); White Blood Cell Count 6.1 X10^3/uL (4.5-11.0)
[2022-08-18] MEDS: ONDANSETRON 4 MG/2 ML INJ IV (15:39)
[2022-08-18] MEDS: SODIUM CHLORIDE 0.9% 1,000 ML 1000 ML IV (15:40)
[2022-08-18 15:47] LABS: Alanine Aminotransferase 19 IU/L (<35); Albumin 3.7 g/dL (3.5-5.0); Albumin Globulin Ratio 1.3 (1.0-2.8); Alkaline Phosphatase 84 U/L (38-126); Aspartate Aminotransferase 32 IU/L (14-36); BUN Creatinine Ratio 26.6 (6-22); Bilirubin Total 0.4 mg/dL (0.2-1.3); Blood Urea Nitrogen 21 mg/dL (7-17); Calcium 9.4 mg/dL (8.4-10.2); Carbon Dioxide 23 mmol/L (22-32); Chloride 104 mmol/L (98-107); Creatine Kinase 127 U/L (30-135); Estimated Glomerular Filt Rate > 60 mL/min (>60); Globulin 2.8 g/dL (1.7-4.1); Glucose 131 mg/dL (80-110); HEMOLYSIS < 15 (0-50); Lipase 160 U/L (23-300); Potassium 3.5 mmol/L (3.4-5.1); Sodium 134 mmol/L (137-145); Total Protein 6.5 g/dL (6.3-8.2)
[2022-08-18 15:48] LABS: Lactate (Lactic Acid) 1.4 mmol/L (0.7-2.1)
[2022-08-18] MEDS: METOCLOPRAMIDE 10 MG/2 ML INJ IV (15:56)
[2022-08-18 15:57] LABS: Troponin I < 0.012 ng/mL (0.01-0.034)
[2022-08-18 16:03] LABS: CKMB % Relative Index 1.4 % (1.5-5.0); Creatine Kinase MB 1.82 ng/mL (<2.37)
--- NOTE | 2022-08-18 16:04 | ED.SYNCOPE ---
HPI - Syncope General Chief Complaint: Syncope Stated Complaint: Passed out after giving blood Time Seen by Provider: 08/18/22 15:01 Source: EMS Mode of arrival: EMS Limitations: no limitations History of Present Illness HPI narrative: Patient is a 76-year-old female history of hypothyroid presenting today after syncopal episode after donating blood. She says she donates blood about 4 times a year she never has any issues. However today after donating she passed out. She was found to be hypotensive and very nauseous. She is not on blood thinners. She says she did not head she has no chest pain or palpitations. She overall is extremely nauseous and can not stop dry heaving. Her blood pressure remains low despite IV fluids. Related Data Home Medications Medication Instructions Recorded Confirmed calcium carb 333 mg-vit D3 133 1 tab PO BID 11/17/19 07/10/22 unit-mag ox 133 mg-zinc oxide 5 mg tab Cheleated Magnesium Glycinate PO BID 10/03/20 07/10/22 acetylcarnitine 500 mg capsule 500 mg PO DAILY 10/03/20 07/10/22 esomeprazole magnesium 20 mg 20 mg PO DAILY 10/03/20 07/10/22 capsule,delayed release (Nexium 24HR) folic acid-vit B6-vit B12 0.8 1 tab PO DAILY 10/03/20 07/10/22 mg-50 mg-100 mcg tablet (Homocysteine Formula) potassium gluconate 550 mg (90 mg) 550 mg PO DAILY 10/03/20 07/10/22 tablet coenzyme Q10 PO 04/08/22 07/10/22 Previous Rx's Medication Instructions Recorded triamterene 37.5 See Rx Instructions .Route 03/04/22 mg-hydrochlorothiazide 25 mg tablet .COMPLEX #90 tabs levothyroxine 50 mcg tablet See Rx Instructions .Route 03/19/22 .COMPLEX #90 tabs thyroid (pork) 60 mg tablet See Rx Instructions .Route 03/19/22 ([place] Thyroid) .COMPLEX #90 tabs rosuvastatin 10 mg tablet See Rx Instructions .Route 06/26/22 .COMPLEX #90 tabs Progesterone E4M #90 caps 06/30/22 bupropion HCl 75 mg tablet 75 mg PO BID #180 tabs 08/18/22 sertraline 25 mg tablet 25 mg PO DAILY #90 tabs 08/18/22 Allergies Allergy/AdvReac Type Severity Reaction Status Date / Time omeprazole AdvReac Severe DRY MOUTH, Verified 08/18/22 15:05 changed taste sensations Review of Systems Review of Systems Narrative: GENERAL: Denies chills, fatigue, malaise, fever, sweats, travel HEENT: Denies sinus pain, ear pain, sore throat, difficulty swallowing, neck pain RESPIRATORY: Denies dyspnea, cough, wheezing, hemoptysis, sputum. CARDIOVASCULAR: Denies chest pain, palpitations, orthopnea, edema GASTROINTESTINAL: see HPI : Denies dysuria, frequency, incontinence, hematuria, urinary retention, flank pain. MUSCULOSKELETAL: Denies weakness, joint pain, or bony pain SKIN: No rash, no erythema, no pruritus NEUROLOGIC:+Syncope see HPI PSYCHIATRIC: No concerning psychosocial issues. 12 point review of systems is negative except for those stated above and HPI Patient History Medical History Bilateral arm pain Bilateral hand numbness Bilateral hand pain Cervical somatic dysfunction Chronic pain of left lower extremity Chronic pain of right knee Cranial somatic dysfunction Cyst Depression (Unknown) Diverticulitis Diverticulitis large intestine GERD (gastroesophageal reflux disease) (Unknown) Hair loss HTN (hypertension) Hyperlipemia (Unknown) Hypothyroidism (Unknown) Neck stiffness Osteopenia (~12/2015) Osteoporosis Palpitations PVC's (premature ventricular contractions) Segmental and somatic dysfunction of rib cage Somatic dysfunction of lower extremity Thoracic region somatic dysfunction TIA (transient ischemic attack) (2013) Transient left leg weakness Tremor of left hand Trigger finger Upper extremity somatic dysfunction Surgical History History of left hip replacement Hx of cataract surgery Hx of section (Unknown) Hx of cholecystectomy (Unknown) Hx of tonsillectomy (Unknown) Status post ORIF of fracture of ankle (03/2016) Family History Father Hypertension Mother Hypertension Sister Bipolar 1 disorder Social History household members: spouse Smoking Status: Never smoker alcohol intake: current Smoking Status: Never smoker alcohol intake frequency: holidays/special occasions only Substance Use Type: marijuana Exam Initial Vital Signs Initial Vital Signs: Vital Signs Pulse Rate 81 08/18/22 15:00 Respiratory Rate 24 08/18/22 15:00 Blood Pressure 67/48 L 08/18/22 15:00 Oxygen Delivery Method 08/18/22 15:00 GENERAL: Alert 76-year-old female dry heaving in moderate distress HEENT: Head atraumatic,EOMI, pupils reactive, face symmetric, dry mucous membranes CARDIOVASCULAR: Regular rate and rhythm without murmurs, rubs or gallops. RESPIRATORY: Breath sounds equal bilaterally, no wheezes rales or rhonchi. ABDOMEN: Soft, mild epigastric : No CVA tenderness EXTREMITIES: Normal range of motion, no clubbing or edema. Neurovascularly intact NEUROLOGICAL: Alert and oriented x4. 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 to Tele-machine tool designer Routine Acetaminophen (Acetaminophen 325 Mg Tablet) 650 mg PO Q6HR PRN PRN Reason: Fever/Mild Pain (1-3) Enoxaparin Sodium (Enoxaparin 40 Mg/0.4 Ml Syringe) 40 mg SUBCUT DAILY CHANDRIKA Sodium Chloride (Normal Saline 0.9%) 1,000 mls @ 1,000 mls/hr IV CONT CHANDRIKA Last Infusion: 08/18/22 16:50 Dose: 0 mls/hr Documented By: Admin: 08/18/22 15:40 Dose: 1,000 mls/hr Documented By: ROBERT Discontinued Medications Furosemide (Furosemide 40 Mg/4 Ml Vial) 40 mg IV NOW ONE Stop: 08/18/22 18:43 Last Admin: 08/18/22 18:47 Dose: 40 mg Documented By: EVELYN Lorazepam (Lorazepam 2 Mg/Ml Inj) 0.5 mg IV NOW ONE Stop: 08/18/22 17:50 Last Admin: 08/18/22 17:57 Dose: 0.5 mg Documented By: ROBERT Metoclopramide HCl (Metoclopramide 10 Mg/2 Ml Inj) 10 mg IV NOW ONE Stop: 08/18/22 15:54 Last Admin: 08/18/22 15:56 Dose: 10 mg Documented By: EVELYN Ondansetron HCl (Ondansetron 4 Mg/2 Ml Inj) 4 mg IV NOW ONE Stop: 08/18/22 15:11 Last Admin: 08/18/22 15:39 Dose: 4 mg Documented By: ROBERT Ondansetron HCl (Ondansetron 4 Mg/2 Ml Inj) 4 mg IV NOW ONE Stop: 08/18/22 15:47 Last Admin: 08/18/22 15:52 Dose: Not Given Documented By: EVELYN Vital Signs Vital signs: Vital Signs - 8 hr 08/18/22 15:03 08/18/22 15:00 08/18/22 15:05 Temperature 97.9 F Pulse Rate 80 81 80 Respiratory Rate 16 24 24 Blood Pressure 67/48 L 67/48 L 90/53 L Pulse Oximetry 86 L 89 L Oxygen Delivery Method Room Air Room Air Room Air Oxygen Flow Rate Fraction of Inspired Oxygen 08/18/22 15:10 08/18/22 15:15 08/18/22 15:30 Temperature Pulse Rate 77 74 74 Respiratory Rate 24 26 H 24 Blood Pressure 82/50 L 83/50 L 90/52 L Pulse Oximetry 96 97 Oxygen Delivery Method Nasal Cannula Nasal Cannula Oxygen Flow Rate 2 2 Fraction of Inspired Oxygen 08/18/22 16:58 08/18/22 17:00 08/18/22 17:00 Temperature Pulse Rate 90 Respiratory Rate 24 Blood Pressure 112/57 L 108/54 L Pulse Oximetry 93 Oxygen Delivery Method Nasal Cannula Oxygen Flow Rate 3 Fraction of Inspired Oxygen 08/18/22 17:30 08/18/22 17:30 08/18/22 18:00 Temperature Pulse Rate 83 Respiratory Rate Blood Pressure 100/54 L 98/53 L Pulse Oximetry Oxygen Delivery Method Oxygen Flow Rate Fraction of Inspired Oxygen 08/18/22 18:00 08/18/22 18:30 08/18/22 18:30 Temperature Pulse Rate 81 92 H Respiratory Rate 35 H Blood Pressure 92/64 Pulse Oximetry 94 88 L Oxygen Delivery Method Nasal Cannula Oxygen Flow Rate 2 Fraction of Inspired Oxygen 08/18/22 19:28 08/18/22 19:00 08/18/22 19:00 Temperature Pulse Rate 94 H Respiratory Rate 32 H Blood Pressure 90/58 L 102/56 L Pulse Oximetry 97 Oxygen Delivery Method Oxygen Flow Rate Fraction of Inspired Oxygen 100 08/18/22 19:30 08/18/22 19:30 Temperature Pulse Rate 92 H Respiratory Rate 32 H Blood Pressure 99/57 L Pulse Oximetry 99 Oxygen Delivery Method Oxygen Flow Rate Fraction of Inspired Oxygen MDM - Syncope Lab Data Result diagrams: 08/18/22 14:55 08/18/22 14:55 Labs: Lab Results 08/18/22 08/18/22 08/18/22 Range/Units 14:55 14:55 14:55 WBC 6.1 (4.5-11.0) X10^3/uL RBC 4.18 (4.0-5.2) X10^6/uL Hgb 12.7 (12.0-16.0) g/dL Hct 36.9 (36-46) % MCV 88.3 (80-100) fL MCH 30.5 (26-34) PG MCHC 34.5 (30-36) % RDW 13.8 (11.6-14.8) % Plt Count 254 (150-400) X10^3/uL Neut % (Auto) 56.1 (50-75) % Lymph % (Auto) 36.0 (25-40) % [place] % (Auto) 5.7 (3-14) % Eos % (Auto) 1.5 L (2-4) % Baso % (Auto) 0.7 (0-2) % Neut # (Auto) 3400 (9824-4775) /uL Lymph # (Auto) 2200 (6379-0204) /uL [place] # (Auto) 400 (0-900) /uL Eos # (Auto) 100 (0-450) /uL Baso # (Auto) 0 (0-100) /uL Sodium 134 L (137-145) mmol/L Potassium 3.5 (3.4-5.1) mmol/L Chloride 104 (98-107) mmol/L Carbon Dioxide 23 (22-32) mmol/L BUN 21 H (7-17) mg/dL Creatinine 0.79 (0.52-1.04) mg/dL Estimated GFR > 60 (>60) mL/min BUN/Creatinine Ratio 26.6 H (6-22) Glucose 131 H (80-110) mg/dL Lactate 1.4 (0.7-2.1) mmol/L Calcium 9.4 (8.4-10.2) mg/dL Total Bilirubin 0.4 (0.2-1.3) mg/dL AST 32 (14-36) IU/L ALT 19 (<35) IU/L Alkaline Phosphatase 84 (38-126) U/L Total Creatine Kinase 127 (30-135) U/L CK-MB (CK-2) 1.82 (<2.37) ng/mL CK-MB (CK-2) Rel Index 1.4 L (1.5-5.0) % Troponin I < 0.012 (0.01-0.034) ng/mL NT-Pro-B Natriuret Pep (<450) pg/mL Total Protein 6.5 (6.3-8.2) g/dL Albumin 3.7 (3.5-5.0) g/dL Globulin 2.8 (1.7-4.1) g/dL Albumin/Globulin Ratio 1.3 (1.0-2.8) Lipase 160 (23-300) U/L SARS-CoV-2 (PCR) (Negative) 08/18/22 08/18/22 Range/Units 18:15 18:15 WBC (4.5-11.0) X10^3/uL RBC (4.0-5.2) X10^6/uL Hgb (12.0-16.0) g/dL Hct (36-46) % MCV (80-100) fL MCH (26-34) PG MCHC (30-36) % RDW (11.6-14.8) % Plt Count (150-400) X10^3/uL Neut % (Auto) (50-75) % Lymph % (Auto) (25-40) % [place] % (Auto) (3-14) % Eos % (Auto) (2-4) % Baso % (Auto) (0-2) % Neut # (Auto) (1202-4893) /uL Lymph # (Auto) (6266-5597) /uL [place] # (Auto) (0-900) /uL Eos # (Auto) (0-450) /uL Baso # (Auto) (0-100) /uL Sodium (137-145) mmol/L Potassium (3.4-5.1) mmol/L Chloride (98-107) mmol/L Carbon Dioxide (22-32) mmol/L BUN (7-17) mg/dL Creatinine (0.52-1.04) mg/dL Estimated GFR (>60) mL/min BUN/Creatinine Ratio (6-22) Glucose (80-110) mg/dL Lactate (0.7-2.1) mmol/L Calcium (8.4-10.2) mg/dL Total Bilirubin (0.2-1.3) mg/dL AST (14-36) IU/L ALT (<35) IU/L Alkaline Phosphatase (38-126) U/L Total Creatine Kinase (30-135) U/L CK-MB (CK-2) (<2.37) ng/mL CK-MB (CK-2) Rel Index (1.5-5.0) % Troponin I < 0.012 (0.01-0.034) ng/mL NT-Pro-B Natriuret Pep 107 (<450) pg/mL Total Protein (6.3-8.2) g/dL Albumin (3.5-5.0) g/dL Globulin (1.7-4.1) g/dL Albumin/Globulin Ratio (1.0-2.8) Lipase (23-300) U/L SARS-CoV-2 (PCR) Negative (Negative) Imaging Data CT scan - head: Radiologist's Impression: Signed Patient: Martha Weeks MR#: [id number] : 1945 Acct:[id number] Age/Sex: 76 / F Date of Service: 08/18/22 Loc: ED Accession Number: [id number] ?? Procedure: CT head/brain wo con Ordering Provider: Damaris Escobar D.O. PROCEDURE:? CT HEAD/BRAIN WO CON ? INDICATIONS:? syncope ? TECHNIQUE:? Noncontrast 4.5 mm thick angled axial sections acquired from the foramen magnum to the vertex, with coronal and sagittal reformats.? For radiation dose reduction, the following was used:? automated exposure control, adjustment of mA and/or kV according to patient size.? ? COMPARISON:? [facility], CT, CT HEAD/BRAIN WO CON, 01/24/2021, 11:48. ? FINDINGS:? Image quality:? Excellent.? ? CSF spaces:? Basal cisterns are patent.? No extra-axial fluid collections.? The ventricles are symmetric in size and shape.? Ossification of the anterior falx is noted. ? Brain:? No acute intracranial hemorrhage or mass effect.? There is cerebral volume loss for age, with resultant ventricular and sulcal prominence.? There are periventricular and deep white matter chronic small vessel ischemic changes.? There is intracranial internal carotid artery atherosclerosis.? ? Skull and face:? Calvarium and visualized facial bones appear intact, without suspicious lesions.? ? Sinuses:? Visualized sinuses and mastoids are clear.? ? IMPRESSION:? No acute intracranial abnormality. ? ? Dictated by: Veto Garcia M.D. on 08/18/2022 at 17:04 ? ? CT scan - chest: Radiologist's Impression: : 1945 Acct:[id number] Age/Sex: 76 / F Date of Service: 08/18/22 Loc: ED Accession Number: [id number] ?? Procedure: CT chest abd pel w con Ordering Provider: Damaris Escobar D.O. PROCEDURE:? CT CHEST ABD PEL W CON ? INDICATIONS:? hypotensive syncope vomiting pain ? TECHNIQUE:? After the administration of intravenous contrast, 5 mm thick sections acquired from the lung apices to the symphysis.? 2.5 mm thick coronal and sagittal reformats were acquired. ?Additional 7 mm thick coronal maximum intensity projection (MIP) reformats acquired through the lungs.? Optional 10-minute delayed imaging may be performed from the kidneys to the bladder.? For radiation dose reduction, the following was used:? automated exposure control, adjustment of mA and/or kV according to patient size.? ? COMPARISON:? None. ? FINDINGS:? Image quality:? Excellent.? ? CHEST:? Lungs:? Diffuse bilateral centrilobular ground-glass and reticular nodular opacities.? No dominique consolidation.? No significant pleural abnormality.? Central airways clear. ? Mediastinum:? No mediastinal or hilar lymphadenopathy.? Coronary and aortic atherosclerosis.? Normal heart size.? No pericardial effusion. ? Chest wall:? No acute or suspicious osseous chest wall lesion.? No axillary or supraclavicular lymphadenopathy. ? ? ABDOMEN:? Solid organs:? Cholecystectomy.? Normal liver and spleen.? Pancreas grossly unremarkable. ?No adrenal gland nodule or mass.? No urinary tract calculus, perinephric fat stranding, or hydroureteronephrosis.? No obvious renal mass. ? Peritoneum and bowel:? No abnormally dilated loop of bowel.? No pericolonic or mesenteric inflammatory changes.? Impacted stool in the rectum with possible mild rectal wall thickening.? Sigmoid diverticulosis without findings of diverticulitis. ? Nodes and vessels:? Aortic atherosclerosis.? No aortic aneurysm. ? Miscellaneous:? No ventral hernias.? ? ? PELVIS:? Genitourinary:? Bladder wall thickness is normal.? ? Miscellaneous:? Uterus and ovaries normal. ? Bones:? Pelvic ring and hip joints appear intact.? No vertebral compression fractures.? ? ? IMPRESSION: ? Diffuse ground-glass and centrilobular reticulonodular opacity in both lungs.? Findings likely infectious or inflammatory. ? Suggested of impacted rectal? stool ball with rectal wall thickening.? This may represent stercoral colitis. ? No acute finding otherwise. ? ? ? Dictated by: Norris Mo M.D. on 08/18/2022 at 16:59 ? ? Approved by: Norris Mo M.D. on 08/18/2022 at 17:03 ? ECG Data Interpretation: Normal sinus rhythm rate 78 RI interval 184 QRS [address] changes similar to previous MDM Narrative Medical decision making narrative: Patient initially quite hypotensive which minimally responded to IV fluids. Blood work surprisingly not that abnormal. He received 1.5 L still nauseous so she is given Ativan she has had 8 mg of Zofran, Reglan, so Ativan was given. Throughout her stay she has become hypoxic with difficulty breathing. Repeat chest x-ray does look like overload longer becoming more crackly. No prior history of congestive heart failure. She is given Lasix. Placed on BiPAP. Repeat troponin is negative BNP is negative. At this time she has been hypotensive nauseous for most of her emergency department stay. She had a syncopal episode likely due to hypotension. Probably more than vasovagal reaction at this point. Now becoming fluid overloaded in requiring. sHe is responding well to BiPAP Citlali Jassi accepts patient Discharge Plan Departure Patient Disposition: Admitted As Inpatient Clinical Impression: CHF exacerbation Admit Date/Time: 08/18/22 19:43 Admit Provider: Temi Keene
--- NOTE | 2022-08-18 16:09 | DI.CT.S_ITS ---
PROCEDURE: CT HEAD/BRAIN WO CON INDICATIONS: syncope TECHNIQUE: Noncontrast 4.5 mm thick angled axial sections acquired from the foramen magnum to the vertex, with coronal and sagittal reformats. For radiation dose reduction, the following was used: automated exposure control, adjustment of mA and/or kV according to patient size. COMPARISON: [facility], CT, CT HEAD/BRAIN WO CON, 01/24/2021, 11:48. FINDINGS: Image quality: Excellent. CSF spaces: Basal cisterns are patent. No extra-axial fluid collections. The ventricles are symmetric in size and shape. Ossification of the anterior falx is noted. Brain: No acute intracranial hemorrhage or mass effect. There is cerebral volume loss for age, with resultant ventricular and sulcal prominence. There are periventricular and deep white matter chronic small vessel ischemic changes. There is intracranial internal carotid artery atherosclerosis. Skull and face: Calvarium and visualized facial bones appear intact, without suspicious lesions. Sinuses: Visualized sinuses and mastoids are clear. IMPRESSION: No acute intracranial abnormality. Dictated by: Veto Garcia M.D. on 08/18/2022 at 17:04 Approved by: Veto Garcia M.D. on 08/18/2022 at 17:05
--- NOTE | 2022-08-18 16:40 | DI.CT.S_ITS ---
PROCEDURE: CT CHEST ABD PEL W CON INDICATIONS: hypotensive syncope vomiting pain TECHNIQUE: After the administration of intravenous contrast, 5 mm thick sections acquired from the lung apices to the symphysis. 2.5 mm thick coronal and sagittal reformats were acquired. Additional 7 mm thick coronal maximum intensity projection (MIP) reformats acquired through the lungs. Optional 10-minute delayed imaging may be performed from the kidneys to the bladder. For radiation dose reduction, the following was used: automated exposure control, adjustment of mA and/or kV according to patient size. COMPARISON: None. FINDINGS: Image quality: Excellent. CHEST: Lungs: Diffuse bilateral centrilobular ground-glass and reticular nodular opacities. No dominique consolidation. No significant pleural abnormality. Central airways clear. Mediastinum: No mediastinal or hilar lymphadenopathy. Coronary and aortic atherosclerosis. Normal heart size. No pericardial effusion. Chest wall: No acute or suspicious osseous chest wall lesion. No axillary or supraclavicular lymphadenopathy. ABDOMEN: Solid organs: Cholecystectomy. Normal liver and spleen. Pancreas grossly unremarkable. No adrenal gland nodule or mass. No urinary tract calculus, perinephric fat stranding, or hydroureteronephrosis. No obvious renal mass. Peritoneum and bowel: No abnormally dilated loop of bowel. No pericolonic or mesenteric inflammatory changes. Impacted stool in the rectum with possible mild rectal wall thickening. Sigmoid diverticulosis without findings of diverticulitis. Nodes and vessels: Aortic atherosclerosis. No aortic aneurysm. Miscellaneous: No ventral hernias. PELVIS: Genitourinary: Bladder wall thickness is normal. Miscellaneous: Uterus and ovaries normal. Bones: Pelvic ring and hip joints appear intact. No vertebral compression fractures. IMPRESSION: Diffuse ground-glass and centrilobular reticulonodular opacity in both lungs. Findings likely infectious or inflammatory. Suggested of impacted rectal stool ball with rectal wall thickening. This may represent stercoral colitis. No acute finding otherwise. Dictated by: Norris Mo M.D. on 08/18/2022 at 16:59 Approved by: Norris Mo M.D. on 08/18/2022 at 17:03
--- NOTE | 2022-08-18 17:55 | PC.NURSE ---
After pt assisted to bedpan, pt began to dry heave again. notified, Ativan order received and given. 1829: Pt respirations increased and shallow. Requiring 4L oxygen and sats began to decrease. Pt remains awake and alert. MD notified and to the room, RT also to room. X ray ordered. LS decreased w/crackles. Sats continue to decrease. Non rebreather applied while BiPap being brought to room. BiPap applied and sats back to the 90s.
[2022-08-18] MEDS: LORazepam 2 MG/ML INJ 0.5 MG IV (17:57)
--- NOTE | 2022-08-18 18:33 | DI.RAD.S_ITS ---
PROCEDURE: XR CHEST 1V INDICATIONS: hypoxia TECHNIQUE: One view of the chest was acquired. COMPARISON: [facility], CR, XR CHEST 1V, 08/18/2022, 15:19. FINDINGS: Surgical changes and devices: None. Lungs and pleura: Bilateral pulmonary opacities are seen, which appear similar when compared to the chest CT performed approximately 2 hours prior. No pleural effusion or pneumothorax. No pleural effusions or pneumothorax. Mediastinum: Mediastinal contours appear normal. Heart size is normal. Bones and chest wall: No suspicious bony lesions. Overlying soft tissues appear unremarkable. IMPRESSION: Bilateral pulmonary airspace opacities do not appear significantly changed when compared to the CT performed earlier the same day given differences in modality. Dictated by: Veto Garcia M.D. on 08/18/2022 at 19:03 Approved by: Veto Garcia M.D. on 08/18/2022 at 19:06
[2022-08-18] MEDS: FUROSEMIDE 40 MG/4 ML VIAL IV (18:47)
[2022-08-18 18:48] LABS: COVID19 -Nasal RAPID Negative (Negative)
[2022-08-18 19:10] LABS: NT-proBNP (BNP-Adult 18+) 107 pg/mL (<450); Troponin I < 0.012 ng/mL (0.01-0.034)
--- NOTE | 2022-08-18 21:06 | PC.NURSE ---
Hospitalist notified of BP 88/57 MAP 68, via phone. Also updated MD that ABG was obtained. DEPUTY CHIEF COUNSEL to call for report. No new orders received.
[2022-08-18 21:23] LABS: Magnesium 2.1 mg/dL (1.6-2.3)
[2022-08-18 21:35] LABS: PCO2 ABG 41.1 mmHg (35-45); pH ABG 7.37 (7.35-7.45)
[2022-08-18 21:36] LABS: Fractionated Inspired Oxygen 100; HCO3 ABG 24 mmol/L (22-26); Oxygen Saturation ABG 100 % (95-100); PO2 ABG 311 mmHg (80-100); TCO2 ABG 25 mmol/L (21-31)
[2022-08-18 21:54] LABS: TSH w/ Reflex to FT4 0.17 uIU/mL (0.47-4.68)
--- NOTE | 2022-08-18 22:08 | PM.HP.1 ---
History of Present Illness History of Present Illness Date Patient Seen: 08/18/22 Time Patient Seen: 22:08 Chief complaint: Vasovagal episode after donating blood Narrative: Martha Weeks is a 76-year-old female with limited medical history and history of PVCs and multiple past orthopedic complaints, was in her usual state of health and donating blood when she had a vasovagal response. Patient reportedly gave 1 unit of blood at her local [facility] [address]. She was assessed in the emergency department found to be hypoxic and shortness of breath satting into the 88% requiring 4 L. she was felt to be fluid overloaded and given IV Lasix for diuresis and placed on BiPAP. She has no history of CHF. Due to ongoing hypotension and with hypoxia, though improving on BiPAP it was decided to admitted to the ICU for further management of her hypoxia and hypotension. Two chest x-rays were done and they were both negative for any acute cardiopulmonary process. Head CT was negative. Chest abdomen and pelvis CT did note bilateral diffuse ground-glass and centrilobar opacities. She is afebrile, blood pressure 95/55, heart rate 82, respiratory rate 30, oxygen saturation of 95% on 2 L with an FiO2 of 40 she weighs 93.5 kg with a BMI of 33.3. CB UC was unremarkable, ABG PO2 post BiPAP was 311 and her oxygen was immediately decreased, Sodium was 134, glucose 131, proBNP was 107, TSH is low at 0.7 but free T4 was within normal limits, COVID 19 PCR is negative. FH: Mother age 86 and had several strokes the 1st of which occurred at age 39, she does not know her father, she has a sister age 60 and a brother age 75 both of whom are well. Patient History Medical History Bilateral arm pain Bilateral hand numbness Bilateral hand pain Cervical somatic dysfunction Chronic pain of left lower extremity Chronic pain of right knee Cranial somatic dysfunction Cyst Depression (Unknown) Diverticulitis Diverticulitis large intestine GERD (gastroesophageal reflux disease) (Unknown) Hair loss HTN (hypertension) Hyperlipemia (Unknown) Hypothyroidism (Unknown) Neck stiffness Osteopenia (~12/2015) Osteoporosis Palpitations PVC's (premature ventricular contractions) Segmental and somatic dysfunction of rib cage Somatic dysfunction of lower extremity Thoracic region somatic dysfunction TIA (transient ischemic attack) (2013) Transient left leg weakness Tremor of left hand Trigger finger Upper extremity somatic dysfunction Surgical History History of left hip replacement Hx of cataract surgery Hx of section (Unknown) Hx of cholecystectomy (Unknown) Hx of tonsillectomy (Unknown) Status post ORIF of fracture of ankle (03/2016) Family & Social History Family History Father Hypertension Mother Hypertension Sister Bipolar 1 disorder Social History: household members spouse Safety & Behavioral: Feels Safe in Current Yes Environment Tobacco & Substance use: Smoking Status Never smoker alcohol intake current alcohol intake frequency holiday/special occasion Substance Use Type marijuana Meds Home Medications and Allergies Home Medications Medication Instructions Recorded Confirmed Type calcium carb 333 mg-vit D3 133 1 tab PO BID 11/17/19 07/10/22 History unit-mag ox 133 mg-zinc oxide 5 mg tab Cheleated Magnesium Glycinate PO BID 10/03/20 07/10/22 History acetylcarnitine 500 mg capsule 500 mg PO DAILY 10/03/20 07/10/22 History esomeprazole magnesium 20 mg 20 mg PO DAILY 10/03/20 07/10/22 History capsule,delayed release (Nexium 24HR) folic acid-vit B6-vit B12 0.8 1 tab PO DAILY 10/03/20 07/10/22 History mg-50 mg-100 mcg tablet (Homocysteine Formula) potassium gluconate 550 mg (90 mg) 550 mg PO DAILY 10/03/20 07/10/22 History tablet triamterene 37.5 See Rx Instructions .Route 03/04/22 07/10/22 Rx mg-hydrochlorothiazide 25 mg tablet .COMPLEX #90 tabs levothyroxine 50 mcg tablet See Rx Instructions .Route 03/19/22 07/10/22 Rx .COMPLEX #90 tabs thyroid (pork) 60 mg tablet See Rx Instructions .Route 03/19/22 07/10/22 Rx ([place] Thyroid) .COMPLEX #90 tabs coenzyme Q10 PO 04/08/22 07/10/22 History rosuvastatin 10 mg tablet See Rx Instructions .Route 06/26/22 07/10/22 Rx .COMPLEX #90 tabs Progesterone E4M #90 caps 06/30/22 07/10/22 Rx bupropion HCl 75 mg tablet 75 mg PO BID #180 tabs 08/18/22 08/18/22 Rx sertraline 25 mg tablet 25 mg PO DAILY #90 tabs 08/18/22 08/18/22 Rx Allergies Allergy/AdvReac Type Severity Reaction Status Date / Time omeprazole AdvReac Severe DRY MOUTH, Verified 08/18/22 15:05 changed taste sensations Review of Systems Review of Systems ROS: Yes All systems reviewed with the patient and are negative except as otherwise documented Exam Vital Signs (past 8 hours): - 08/18/22 15:03 08/18/22 15:00 08/18/22 15:05 Temperature 97.9 F Pulse Rate 80 81 80 Respiratory Rate 16 24 24 Blood Pressure 67/48 L 67/48 L 90/53 L Pulse Oximetry 86 L 89 L Oxygen Delivery Method Room Air Room Air Room Air Oxygen Flow Rate Fraction of Inspired Oxygen 08/18/22 15:10 08/18/22 15:15 08/18/22 15:30 Temperature Pulse Rate 77 74 74 Respiratory Rate 24 26 H 24 Blood Pressure 82/50 L 83/50 L 90/52 L Pulse Oximetry 96 97 Oxygen Delivery Method Nasal Cannula Nasal Cannula Oxygen Flow Rate 2 2 Fraction of Inspired Oxygen 08/18/22 16:58 08/18/22 17:00 08/18/22 17:00 Temperature Pulse Rate 90 Respiratory Rate 24 Blood Pressure 112/57 L 108/54 L Pulse Oximetry 93 Oxygen Delivery Method Nasal Cannula Oxygen Flow Rate 3 Fraction of Inspired Oxygen 08/18/22 17:30 08/18/22 17:30 08/18/22 18:00 Temperature Pulse Rate 83 Respiratory Rate Blood Pressure 100/54 L 98/53 L Pulse Oximetry Oxygen Delivery Method Oxygen Flow Rate Fraction of Inspired Oxygen 08/18/22 18:00 08/18/22 18:30 08/18/22 18:30 Temperature Pulse Rate 81 92 H Respiratory Rate 35 H Blood Pressure 92/64 Pulse Oximetry 94 88 L Oxygen Delivery Method Nasal Cannula Oxygen Flow Rate 2 Fraction of Inspired Oxygen 08/18/22 19:28 08/18/22 19:00 08/18/22 19:00 Temperature Pulse Rate 94 H Respiratory Rate 32 H Blood Pressure 90/58 L 102/56 L Pulse Oximetry 97 Oxygen Delivery Method Oxygen Flow Rate Fraction of Inspired Oxygen 100 08/18/22 19:30 08/18/22 19:30 08/18/22 20:00 Temperature Pulse Rate 92 H 84 Respiratory Rate 32 H Blood Pressure 99/57 L Pulse Oximetry 99 100 Oxygen Delivery Method Oxygen Flow Rate Fraction of Inspired Oxygen 08/18/22 20:30 08/18/22 20:52 08/18/22 20:52 Temperature Pulse Rate 80 80 Respiratory Rate Blood Pressure 91/55 L Pulse Oximetry 100 100 Oxygen Delivery Method Oxygen Flow Rate Fraction of Inspired Oxygen 08/18/22 21:00 08/18/22 21:00 08/18/22 21:01 Temperature Pulse Rate 83 Respiratory Rate 26 H Blood Pressure 89/54 L 88/57 L Pulse Oximetry 99 Oxygen Delivery Method BiPAP Oxygen Flow Rate Fraction of Inspired Oxygen 08/18/22 21:01 08/18/22 21:30 08/18/22 21:30 Temperature Pulse Rate 81 80 Respiratory Rate 31 H 32 H Blood Pressure 89/52 L Pulse Oximetry 100 98 Oxygen Delivery Method BiPAP BiPAP Oxygen Flow Rate Fraction of Inspired Oxygen 08/18/22 21:45 Temperature Pulse Rate 78 Respiratory Rate 28 H Blood Pressure 101/55 L Pulse Oximetry Oxygen Delivery Method Oxygen Flow Rate Fraction of Inspired Oxygen Fraction of Inspired Oxygen 100 Oxygen Delivery Method BiPAP Oxygen Flow Rate 2 Narrative Exam Narrative: Gen: Alert, oriented, well-developed y.o. female, NAD HEENT: normocephalic, atraumatic, conjunctiva clear, sclera non-icteric, oral mucosa pink and moist Neck: supple, full ROM, no JVD, trachea is midline Resp: On BiPAP, tachypneic otherwise Lungs CTA, CV: RRR, no murmur or rubs Abd: soft, non-tender, normoactive BTs Skin: no lesions or rashes, dry and intact Neuro: Alert and oriented X 4 w/no focal deficits. Speech clear and coherent. Extremities: moves all 4 extremities, is ambulatory, negative Miranda?s sign Psyche: normal mood and affect. Objective Labs Result Diagrams: 08/19/22 01:15 08/18/22 14:55 Labs: Laboratory Results - last 24 hr 08/18/22 08/18/22 08/18/22 14:55 14:55 14:55 WBC 6.1 RBC 4.18 Hgb 12.7 Hct 36.9 MCV 88.3 MCH 30.5 MCHC 34.5 RDW 13.8 Plt Count 254 Neut % (Auto) 56.1 Lymph % (Auto) 36.0 Jennings % (Auto) 5.7 Eos % (Auto) 1.5 L Baso % (Auto) 0.7 Neut # (Auto) 3400 Lymph # (Auto) 2200 Jennings # (Auto) 400 Eos # (Auto) 100 Baso # (Auto) 0 ABG pH ABG pCO2 ABG pO2 ABG HCO3 ABG Total CO2 ABG O2 Saturation ABG Base Excess FiO2 Sodium 134 L Potassium 3.5 Chloride 104 Carbon Dioxide 23 BUN 21 H Creatinine 0.79 Estimated GFR > 60 BUN/Creatinine Ratio 26.6 H Glucose 131 H Lactate 1.4 Calcium 9.4 Magnesium Total Bilirubin 0.4 AST 32 ALT 19 Alkaline Phosphatase 84 Total Creatine Kinase 127 CK-MB (CK-2) 1.82 CK-MB (CK-2) Rel Index 1.4 L Troponin I < 0.012 NT-Pro-B Natriuret Pep Total Protein 6.5 Albumin 3.7 Globulin 2.8 Albumin/Globulin Ratio 1.3 Lipase 160 SARS-CoV-2 (PCR) 08/18/22 08/18/22 08/18/22 14:55 18:15 18:15 WBC RBC Hgb Hct MCV MCH MCHC RDW Plt Count Neut % (Auto) Lymph % (Auto) Jennings % (Auto) Eos % (Auto) Baso % (Auto) Neut # (Auto) Lymph # (Auto) Jennings # (Auto) Eos # (Auto) Baso # (Auto) ABG pH ABG pCO2 ABG pO2 ABG HCO3 ABG Total CO2 ABG O2 Saturation ABG Base Excess FiO2 Sodium Potassium Chloride Carbon Dioxide BUN Creatinine Estimated GFR BUN/Creatinine Ratio Glucose Lactate Calcium Magnesium 2.1 Total Bilirubin AST ALT Alkaline Phosphatase Total Creatine Kinase CK-MB (CK-2) CK-MB (CK-2) Rel Index Troponin I < 0.012 NT-Pro-B Natriuret Pep 107 Total Protein Albumin Globulin Albumin/Globulin Ratio Lipase SARS-CoV-2 (PCR) Negative 08/18/22 20:50 WBC RBC Hgb Hct MCV MCH MCHC RDW Plt Count Neut % (Auto) Lymph % (Auto) Jennings % (Auto) Eos % (Auto) Baso % (Auto) Neut # (Auto) Lymph # (Auto) Jennings # (Auto) Eos # (Auto) Baso # (Auto) ABG pH 7.37 ABG pCO2 41.1 ABG pO2 311 H* ABG HCO3 24 ABG Total CO2 25 ABG O2 Saturation 100 ABG Base Excess -2.0 FiO2 100 Sodium Potassium Chloride Carbon Dioxide BUN Creatinine Estimated GFR BUN/Creatinine Ratio Glucose Lactate Calcium Magnesium Total Bilirubin AST ALT Alkaline Phosphatase Total Creatine Kinase CK-MB (CK-2) CK-MB (CK-2) Rel Index Troponin I NT-Pro-B Natriuret Pep Total Protein Albumin Globulin Albumin/Globulin Ratio Lipase SARS-CoV-2 (PCR) Assessment & Plan Assessment & Plan narrative: Martha Weeks is admitted to the ICU for further management and evaluation of a vasovagal episode secondary to a blood donation. Vasovagal episode secondary to a blood donation. Review of Up-to-Date indicates that vasovagal and hypovolemic reactions are common in 2-5% of blood donors with a true syncope occurs in a.m. much smaller percentage. It is unclear as to why she remains hypotensive and continues to require norepinephrine Patient was administered IV Solu-Medrol and Famotidine with suspicion she may have had an allergic reaction to 1 of the blood donation supplies e.g latex VTE Prophylaxis: Wells risk score 0 XEnoxaparin 40 mg subQ once daily Bilateral SCDs Patient is admitted to the inpatient service due to the severity of disease, risks of continued hypotension requiring pressors and this stay is expected to exceed 2 midnights. FEN: IV fluids: saline lock, diet: heart healthy, labs: CBC, C/BMP, liver enzymes, Mag, PT/INR Consultants Intercept ICU care and involvement in the patient?s care is appreciated. Dispo: likely discharge to home Code status: DNR/DNI as discussed with the patient who identifies Dar Mg and son Ronald Cooper as her surrogate and POA. [X] I have utilized all available immediate resources to obtain, update, or review of the patient's current medications VTE Deep Vein Thrombosis/Pulmonary Embolism Present on Admission: No MIPS - Admit I confirm the patient?s Advance Care Plan is present, Code status is documented, Surrogate decision maker is in patient?s record: Yes MIPS - DC The patient has current or prior documentation of left ventricular ejection fraction (LVEF) less than 40%, or moderate or severely depressed left ventricular systolic function.: No COVID-19 COVID-19 status: Negative Result date/Date tested (Pos, Neg/Pending): 08/18/22 Time Spent With Patient Critical Care time: 40 minutes spent in critical care admission time.
[2022-08-18] MEDS: NOREPINEPHRINE BITARTRATE/D5W 4 MG/250 ML PLAST..BAG 15 MG IV (22:23)
[2022-08-18 22:59] LABS: Free T4, Direct Thyroxine 1.12 ng/dL (0.78-2.19)
[2022-08-19] VITALS (85 sets, daily range): BP systolic 76–155; BP diastolic 50–77; PULSE 71–111; RESP 22–48; O2SAT 88–100
--- NOTE | 2022-08-19 00:09 | P.TELICUCN_ITS ---
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 female w/ PMHx of hypothyroidism who passed out after a blood donation. She donates blood on a regular basis and did so today at the usual place; has not had any issues with this before. There are reports that she had emesis as well. In the ED, she was hypotensive to 67/48. NCHCT was (-). Ches t/abd/pelvic CT scan only notable for possible fecal impaction/stercoral colitis. She was given 1.5 L of crystalloid and then became SOB. She was given Lasix 40 mg IV x 1 and started on NIPPV. Patient and RN deny any symptoms suspicious for anaphylaxis such as diarrhea, hives or skin rashes. Currently on NE 2 mcg/min. Troponin was (-) x 2 ; lactate was normal and free T4 was normal. [facility] Medical History Bilateral arm pain Bilateral hand numbness Bilateral hand pain Cervical somatic dysfunction Chronic pain of left lower extremity Chronic pain of right knee Cranial somatic dysfunction Cyst Depression (Unknown) Diverticulitis Diverticulitis large intestine GERD (gastroesophageal reflux disease) (Unknown) Hair loss HTN (hypertension) Hyperlipemia (Unknown) Hypothyroidism (Unknown) Neck stiffness Osteopenia (~12/2015) Osteoporosis Palpitations PVC's (premature ventricular contractions) Segmental and somatic dysfunction of rib cage Somatic dysfunction of lower extremity Thoracic region somatic dysfunction TIA (transient ischemic attack) (2013) Transient left leg weakness Tremor of left hand Trigger finger Upper extremity somatic dysfunction Surgical History History of left hip replacement Hx of cataract surgery Hx of section (Unknown) Hx of cholecystectomy (Unknown) Hx of tonsillectomy (Unknown) Status post ORIF of fracture of ankle (03/2016) Family History Father Hypertension Mother Hypertension Sister Bipolar 1 disorder Social History household members: spouse Smoking Status: Never smoker alcohol intake: current Current Medications Current Medications Medications: Home Medications calcium carb 333 mg-vit D3 133 unit-mag ox 133 mg-zinc oxide 5 mg tab 1 tab PO B ID 11/17/19 [History Confirmed 07/10/22] Cheleated Magnesium Glycinate PO BID 10/03/20 [History Confirmed 07/10/22] acetylcarnitine 500 mg capsule 500 mg PO DAILY 10/03/20 [History Confirmed 07/10/22] esomeprazole magnesium 20 mg capsule,delayed release (Nexium 24HR) 20 mg PO DAILY 10/03/20 [History Confirmed 07/10/22] folic acid-vit B6-vit B12 0.8 mg-50 mg-100 mcg tablet (Homocysteine Formula) 1 tab PO DAILY 10/03/20 [History Confirmed 07/10/22] potassium gluconate 550 mg (90 mg) tablet 550 mg PO DAILY 10/03/20 [History Confirmed 07/10/22] triamterene 37.5 mg-hydrochlorothiazide 25 mg tablet See Rx Instructions .Route .COMPLEX #90 tabs 03/04/22 [Rx Confirmed 07/10/22] levothyroxine 50 mcg tablet See Rx Instructions .Route .COMPLEX #90 tabs 03/19/22 [Rx Confirmed 07/10/22] thyroid (pork) 60 mg tablet ([place] Thyroid) See Rx Instructions .Route .COMPLEX #90 tabs 03/19/22 [Rx Confirmed 07/10/22] coenzyme Q10 PO 04/08/22 [History Confirmed 07/10/22] rosuvastatin 10 mg tablet See Rx Instructions .Route .COMPLEX #90 tabs 06/26/22 [Rx Confirmed 07/10/22] Progesterone E4M #90 caps 06/30/22 [Rx Confirmed 07/10/22] bupropion HCl 75 mg tablet 75 mg PO BID #180 tabs 08/18/22 [Rx Confirmed ] sertraline 25 mg tablet 25 mg PO DAILY #90 tabs 08/18/22 [Rx Confirmed 08/18/22] Visit Medications (administered) Generic Name Dose Route Start Last Admin Trade Name Freq PRN Reason Stop Dose Admin Sodium Chloride 1,000 mls @ 1,000 mls/hr 08/18/22 15:15 08/18/22 16:50 Normal Saline 0.9% IV Infused CONT CHANDRIKA Infusion NOREPINEPHRINE BITARTRATE/D5W 4 mg in 250 mls @ 30 mls/hr 08/18/22 21:56 08/18/22 23:52 Levophed IV 1 mcg/min TITRATE CHANDRIKA 3.75 mls/hr Titration Protocol 8 MCG/MIN Exam Vital Signs (past 8 hours): - 08/18/22 16:58 08/18/22 17:00 08/18/22 17:00 Temperature Pulse Rate 90 Respiratory Rate 24 Blood Pressure 112/57 L 108/54 L Pulse Oximetry 93 Oxygen Delivery Method Nasal Cannula Oxygen Flow Rate 3 Fraction of Inspired Oxygen 08/18/22 17:30 08/18/22 17:30 08/18/22 18:00 Temperature Pulse Rate 83 Respiratory Rate Blood Pressure 100/54 L 98/53 L Pulse Oximetry Oxygen Delivery Method Oxygen Flow Rate Fraction of Inspired Oxygen 08/18/22 18:00 08/18/22 18:30 08/18/22 18:30 Temperature Pulse Rate 81 92 H Respiratory Rate 35 H Blood Pressure 92/64 Pulse Oximetry 94 88 L Oxygen Delivery Method Nasal Cannula Oxygen Flow Rate 2 Fraction of Inspired Oxygen 08/18/22 19:28 08/18/22 19:00 08/18/22 19:00 Temperature Pulse Rate 94 H Respiratory Rate 32 H Blood Pressure 90/58 L 102/56 L Pulse Oximetry 97 Oxygen Delivery Method Oxygen Flow Rate Fraction of Inspired Oxygen 100 08/18/22 19:30 08/18/22 19:30 08/18/22 20:00 Temperature Pulse Rate 92 H 84 Respiratory Rate 32 H Blood Pressure 99/57 L Pulse Oximetry 99 100 Oxygen Delivery Method Oxygen Flow Rate Fraction of Inspired Oxygen 08/18/22 20:30 08/18/22 20:52 08/18/22 20:52 Temperature Pulse Rate 80 80 Respiratory Rate Blood Pressure 91/55 L Pulse Oximetry 100 100 Oxygen Delivery Method Oxygen Flow Rate Fraction of Inspired Oxygen 08/18/22 21:00 08/18/22 21:00 08/18/22 21:01 Temperature Pulse Rate 83 Respiratory Rate 26 H Blood Pressure 89/54 L 88/57 L Pulse Oximetry 99 Oxygen Delivery Method BiPAP Oxygen Flow Rate Fraction of Inspired Oxygen 08/18/22 21:01 08/18/22 21:30 08/18/22 21:30 Temperature Pulse Rate 81 80 Respiratory Rate 31 H 32 H Blood Pressure 89/52 L Pulse Oximetry 100 98 Oxygen Delivery Method BiPAP BiPAP Oxygen Flow Rate Fraction of Inspired Oxygen 08/18/22 21:45 08/18/22 21:45 08/18/22 22:00 Temperature 97.2 F L Pulse Rate 78 84 Respiratory Rate 28 H 33 H Blood Pressure 101/55 L 72/42 L 53/32 L Pulse Oximetry 96 Oxygen Delivery Method Oxygen Flow Rate Fraction of Inspired Oxygen 08/18/22 22:10 08/18/22 20:30 08/18/22 20:50 Temperature Pulse Rate Respiratory Rate Blood Pressure 87/55 L Pulse Oximetry Oxygen Delivery Method Oxygen Flow Rate Fraction of Inspired Oxygen 100 40 08/18/22 21:35 08/18/22 21:50 08/18/22 22:35 Temperature Pulse Rate 84 Respiratory Rate 33 H Blood Pressure Pulse Oximetry Oxygen Delivery Method Nasal Cannula Oxygen Flow Rate Fraction of Inspired Oxygen 40 08/18/22 22:30 Temperature 97.9 F Pulse Rate 89 Respiratory Rate 25 H Blood Pressure 120/72 Pulse Oximetry 95 Oxygen Delivery Method Oxygen Flow Rate Fraction of Inspired Oxygen Fraction of Inspired Oxygen 40 Oxygen Delivery Method Nasal Cannula Oxygen Flow Rate 2 Const General: cooperative, healthy appearing and comfortable Resp Effort & Inspection: normal respiratory effort Neuro General: patient alert, patient awake and patient oriented x3 Objective Labs Result Diagrams: 08/18/22 14:55 08/18/22 14:55 Labs: Laboratory Results - last 24 hr 08/18/22 08/18/22 08/18/22 14:55 14:55 14:55 WBC 6.1 RBC 4.18 Hgb 12.7 Hct 36.9 MCV 88.3 MCH 30.5 MCHC 34.5 RDW 13.8 Plt Count 254 Neut % (Auto) 56.1 Lymph % (Auto) 36.0 Gillespie % (Auto) 5.7 Eos % (Auto) 1.5 L Baso % (Auto) 0.7 Neut # (Auto) 3400 Lymph # (Auto) 2200 Gillespie # (Auto) 400 Eos # (Auto) 100 Baso # (Auto) 0 ABG pH ABG pCO2 ABG pO2 ABG HCO3 ABG Total CO2 ABG O2 Saturation ABG Base Excess FiO2 Sodium 134 L Potassium 3.5 Chloride 104 Carbon Dioxide 23 BUN 21 H Creatinine 0.79 Estimated GFR > 60 BUN/Creatinine Ratio 26.6 H Glucose 131 H Lactate 1.4 Calcium 9.4 Magnesium Total Bilirubin 0.4 AST 32 ALT 19 Alkaline Phosphatase 84 Total Creatine Kinase 127 CK-MB (CK-2) 1.82 CK-MB (CK-2) Rel Index 1.4 L Troponin I < 0.012 NT-Pro-B Natriuret Pep Total Protein 6.5 Albumin 3.7 Globulin 2.8 Albumin/Globulin Ratio 1.3 Lipase 160 TSH Free T4 SARS-CoV-2 (PCR) 08/18/22 08/18/22 08/18/22 14:55 14:55 18:15 WBC RBC Hgb Hct MCV MCH MCHC RDW Plt Count Neut % (Auto) Lymph % (Auto) Gillespie % (Auto) Eos % (Auto) Baso % (Auto) Neut # (Auto) Lymph # (Auto) Gillespie # (Auto) Eos # (Auto) Baso # (Auto) ABG pH ABG pCO2 ABG pO2 ABG HCO3 ABG Total CO2 ABG O2 Saturation ABG Base Excess FiO2 Sodium Potassium Chloride Carbon Dioxide BUN Creatinine Estimated GFR BUN/Creatinine Ratio Glucose Lactate Calcium Magnesium 2.1 Total Bilirubin AST ALT Alkaline Phosphatase Total Creatine Kinase CK-MB (CK-2) CK-MB (CK-2) Rel Index Troponin I < 0.012 NT-Pro-B Natriuret Pep 107 Total Protein Albumin Globulin Albumin/Globulin Ratio Lipase TSH 0.17 L Free T4 1.12 SARS-CoV-2 (PCR) 08/18/22 08/18/22 18:15 20:50 WBC RBC Hgb Hct MCV MCH MCHC RDW Plt Count Neut % (Auto) Lymph % (Auto) Gillespie % (Auto) Eos % (Auto) Baso % (Auto) Neut # (Auto) Lymph # (Auto) Gillespie # (Auto) Eos # (Auto) Baso # (Auto) ABG pH 7.37 ABG pCO2 41.1 ABG pO2 311 H* ABG HCO3 24 ABG Total CO2 25 ABG O2 Saturation 100 ABG Base Excess -2.0 FiO2 100 Sodium Potassium Chloride Carbon Dioxide BUN Creatinine Estimated GFR BUN/Creatinine Ratio Glucose Lactate Calcium Magnesium Total Bilirubin AST ALT Alkaline Phosphatase Total Creatine Kinase CK-MB (CK-2) CK-MB (CK-2) Rel Index Troponin I NT-Pro-B Natriuret Pep Total Protein Albumin Globulin Albumin/Globulin Ratio Lipase TSH Free T4 SARS-CoV-2 (PCR) Negative Assessment & Plan Assessment and plan (1) Hypotension: Problem details: Unclear cause. Story seems most consistent w/ vasovagal syncope but persistent NE requirement is puzzling. Allergic reaction/anaphylaxis (?latex) in differential but ROS and history is not consistent with this Qualifiers: Hypotension type: unspecified hypotension type Qualified Code(s): I95.9 - Hypotension, unspecified Status: Acute Plan: -Wean modest NE requirement (2) Pulmonary vascular congestion: Problem details: Seems iatrogenic Status: Acute Plan: See problem 3 (3) Respiratory distress: Status: Acute Plan: -ABG not c/w respiratory failure --> wean NIPPV Time Spent With Patient Critical Care time: I spent a total of 35 minutes of critical care time on this patient's care today; this time is exclusive of procedural time.
[2022-08-19 01:25] LABS: Add Manual Diff / Slide Review NO; Basophils Absolute Auto 0 /uL (0-100); Basophils Percent Auto 0.3 % (0-2); Eosinophils Absolute Auto 0 /uL (0-450); Eosinophils Percent Auto 0.1 % (2-4); Hematocrit 36.8 % (36-46); Hemoglobin 12.5 g/dL (12.0-16.0); Lymphocytes Absolute Auto 400 /uL (1100-4500); Lymphocytes Percent Auto 6.9 % (25-40); Mean Corpuscular HGB Conc 33.9 % (30-36); Mean Corpuscular Hemoglobin 30.3 PG (26-34); Mean Corpuscular Volume 89.5 fL (80-100); Monocytes Absolute Auto 200 /uL (0-900); Neutrophils Absolute Auto 4800 /uL (1500-7000); Neutrophils Percent Auto 88.7 % (50-75); Platelet Count 213 X10^3/uL (150-400); Red Blood Cell Count 4.12 X10^6/uL (4.0-5.2); Red Cell Distribution Width 13.8 % (11.6-14.8); White Blood Cell Count 5.4 X10^3/uL (4.5-11.0)
[2022-08-19] MEDS: FAMOTIDINE 20 MG/2 ML VIAL 40 MG IV ×2 (01:57→09:18)
[2022-08-19 06:28] LABS: Alanine Aminotransferase 18 IU/L (<35); Albumin 3.3 g/dL (3.5-5.0); Albumin Globulin Ratio 1.3 (1.0-2.8); Alkaline Phosphatase 57 U/L (38-126); Aspartate Aminotransferase 26 IU/L (14-36); BUN Creatinine Ratio 25.9 (6-22); Blood Urea Nitrogen 22 mg/dL (7-17); Carbon Dioxide 21 mmol/L (22-32); Chloride 105 mmol/L (98-107); Estimated Glomerular Filt Rate > 60 mL/min (>60); Globulin 2.6 g/dL (1.7-4.1); Glucose 173 mg/dL (80-110); HEMOLYSIS < 15 (0-50); Potassium 3.5 mmol/L (3.4-5.1); Sodium 133 mmol/L (137-145); Total Protein 5.9 g/dL (6.3-8.2)
[2022-08-19 06:31] LABS: Add Manual Diff / Slide Review NO; Basophils Absolute Auto 0 /uL (0-100); Basophils Percent Auto 0.1 % (0-2); Eosinophils Absolute Auto 0 /uL (0-450); Hematocrit 36.1 % (36-46); Hemoglobin 12.5 g/dL (12.0-16.0); Lymphocytes Absolute Auto 500 /uL (1100-4500); Lymphocytes Percent Auto 5.3 % (25-40); Mean Corpuscular HGB Conc 34.6 % (30-36); Mean Corpuscular Hemoglobin 30.8 PG (26-34); Mean Corpuscular Volume 89.2 fL (80-100); Monocytes Absolute Auto 300 /uL (0-900); Monocytes Percent Auto 3.6 % (3-14); Neutrophils Absolute Auto 8100 /uL (1500-7000); Platelet Count 227 X10^3/uL (150-400); Red Blood Cell Count 4.05 X10^6/uL (4.0-5.2); Red Cell Distribution Width 13.7 % (11.6-14.8); White Blood Cell Count 8.9 X10^3/uL (4.5-11.0)
--- NOTE | 2022-08-19 07:00 | DI.ECHO.S_ITS ---
[facility] +---------+ : : [address] : : : : [id number] : : : : Phone: [phone]+ Echocardiogram Report + + :Name: TANA HAWK Study Date: 08/19/2022 Height: 66 in : :[facility] ReadingLocation: Weight: 206 lb : : Gender: Female BSA: 2.0 m2 : :: 1945 Age: 76 yrs BP: 107/51 mmHg: :Reason For Study: HYPOTENSION : :Ordering Physician: TUSHAR, : :LOY CHINO Performed By: Tash Mullins : :Referring: INGRID FINLEY : + + Interpretation Summary The patient was in normal sinus rhythm during the exam. Normotensive during exam The left ventricular cavity is small. The ejection fraction is estimated to be 60-65%. Diastolic parameters suggest a relaxation abnormality of the left ventricle, consistent with probable normal filling pressures. There is a trace or physiologic amount of tricuspid regurgitation. The right ventricular systolic pressure is estimated to be at least 20 mmHg based on an estimated right atrial pressure of 3 mm Hg. No prior study for comparison Procedure: A two-dimensional transthoracic echocardiogram with color flow and Doppler was performed. The study quality was technically difficult. There is no prior echocardiogram noted for this patient. The heart rate ranged between 74-95 bpm during the study. The patient was in normal sinus rhythm during the exam. Normotensive during exam. Left Ventricle: The left ventricular cavity is small. There is normal left ventricular wall thickness. The ejection fraction is estimated to be 60-65%. Diastolic parameters suggest a relaxation abnormality of the left ventricle, consistent with probable normal filling pressures. Right Ventricle: The right ventricle is normal in size and function. Atria: The left atrial size is normal. Right atrial size is normal. There is no Doppler evidence for an interatrial shunt. Mitral Valve: The mitral valve leaflets are mildly calcified. There is trace mitral regurgitation. Aortic Valve: The aortic valve is trileaflet. The aortic valve opens well. There is no aortic valve stenosis. No aortic regurgitation is present. Tricuspid Valve: The tricuspid valve is normal in structure and function. There is a trace or physiologic amount of tricuspid regurgitation. The right ventricular systolic pressure is estimated to be at least 20 mmHg based on an estimated right atrial pressure of 3 mm Hg. Pulmonic Valve: The pulmonic valve is not well visualized. There is no pulmonic valvular regurgitation. Great Vessels: The aortic root is normal size. The ascending aorta could not be visualized. The IVC is of normal diameter and collapses greater than 50% with a sniff. This suggests a low right atrial pressure of 3 mm Hg. Pericardium/ Pleura There is no pericardial effusion. There is no pleural effusion. MMode/2D Measurements & Calculations LVIDd: 3.9 cm LVOT diam: 2.2 cm LVIDs: 2.4 cm Ao root diam: 3.1 cm FS: 37.6 % IVSd: 0.94 cm LVPWd: 1.0 cm LV low. diameter/BSA (cm/m^2): 1.9 LV sys. diameter/BSA (cm/m^2): 1.2 LA A2 area: 16.7 cm2 RA long axis: 4.8 cm LA A4 area: 14.9 cm2 RA area: 11.8 cm2 LA length (vol): 4.7 cm RA vol: 24.5 ml LA vol: 45.1 ml RA : 12.1 ml/m2 LA vol index: 22.2 ml/m2 IVC diam: 1.3 cm RVD1 (basal): 3.6 cm RVD2 (mid): 3.1 cm TAPSE: 2.1 cm Doppler Measurements & Calculations Ao V2 max: 138.5 cm/sec LVOT Max Markos: 119.2 cm/sec Ao V2 mean: 105.4 cm/sec LV V1 max P.7 mmHg Ao max P.7 mmHg LV V1 VTI: 21.8 cm Ao mean P.8 mmHg SHEREEN(I,D): 3.1 cm2 Ao V2 VTI: 26.5 cm SHEREEN(V,D): 3.2 cm2 sev ratio: 0.82 SHEREEN indexed to BSA (cm^2/m^2): 1.5 MV E max markos: 57.3 cm/sec TR max markos: 204.9 cm/sec MV A max markos: 80.6 cm/sec TR max P.8 mmHg MV E/A: 0.71 PA V2 max: 91.4 cm/sec Med Peak E' Markos: 6.0 cm/sec PA V2 mean: 69.7 cm/sec E/E' med: 9.6 PA mean P.1 mmHg Lat Peak E' Markos: 8.9 cm/sec PA pr(Accel): 34.5 mmHg E/E' lat: 6.4 E/e' average: 8.0 MV dec time: 0.21 sec MVA(VTI): 4.6 cm2 MV V2 mean: 60.3 cm/sec SV(LVOT): 81.8 ml MV mean P.8 mmHg MV V2 VTI: 17.9 cm Reading Physician:NELLIE
--- NOTE | 2022-08-19 07:29 | PC.NURSE ---
End of shift note. Patient AAOX4, denies pain. Has been SR 80s. BP low on admit to ICU last night, levophed started, this am BP WNL, Levophed titrated off. Voiding via bedpan. Gave report to day shift RN.
--- NOTE | 2022-08-19 08:24 | PM.PN.EICU ---
Subjective Subjective IF CAMERA ACTIVATED, patient seen via real-time interactive audiovisual communication: Camera activated Consent obtained for tele-mastic man care: Yes Patient Location: ICU Provider location (State): [place] Other participants/roles: RN Interval history: Patient Summary: 76 ho Woman with PMH of hypothyroidism was donating blood when she vomitted and passed out. Pt. was hypotensive and given 1.5 L of IVF. Then she developed SOB and placed on NIPPV and given Lasix 40 mg IVP. Pt. started on NE at 2 mcg/min for BP support. CXR originally was clear but subsequent CXR showed B/L air space opacities. CT of chest and abd showed diffuse bilateral centrilobular ground-glass and reticular nodular opacities and focal impaction with slightly thickened rectal wall. Head CT neg Recent Events: -patient came off BIPAP last night at midnight -NE turned off at 6 am this morning -patient reports productive cough -WBC increased this morning with neutrophilic predominance Current Medications Current Medications Medications: Home Medications calcium carb 333 mg-vit D3 133 unit-mag ox 133 mg-zinc oxide 5 mg tab 1 tab PO BID 11/17/19 [History Confirmed 08/19/22] Cheleated Magnesium Glycinate PO BID 10/03/20 [History Confirmed 07/10/22] acetylcarnitine 500 mg capsule 500 mg PO DAILY 10/03/20 [History Confirmed 08/19/22] folic acid-vit B6-vit B12 0.8 mg-50 mg-100 mcg tablet (Homocysteine Formula) 1 tab PO DAILY 10/03/20 [History Confirmed 08/19/22] potassium gluconate 550 mg (90 mg) tablet 550 mg PO DAILY 10/03/20 [History Confirmed 08/19/22] triamterene 37.5 mg-hydrochlorothiazide 25 mg tablet See Rx Instructions .Route .COMPLEX #90 tabs 03/04/22 [Rx Confirmed 08/19/22] levothyroxine 50 mcg tablet See Rx Instructions .Route .COMPLEX #90 tabs 03/19/22 [Rx Confirmed 08/19/22] thyroid (pork) 60 mg tablet ([place] Thyroid) See Rx Instructions .Route .COMPLEX #90 tabs 03/19/22 [Rx Confirmed 08/19/22] coenzyme Q10 PO 04/08/22 [History Confirmed 07/10/22] Progesterone E4M #90 caps 06/30/22 [Rx Confirmed 08/19/22] bupropion HCl 75 mg tablet 75 mg PO BID #180 tabs 08/18/22 [Rx Confirmed 08/19/22] sertraline 25 mg tablet 25 mg PO DAILY #90 tabs 08/18/22 [Rx Confirmed 08/19/22] Visit Medications (administered) Generic Name Dose Route Start Last Admin Trade Name Lisseth PRN Reason Stop Dose Admin Famotidine 40 mg 08/19/22 00:45 08/19/22 01:57 Famotidine 20 Mg/2 Ml Vial IV 40 mg BID CHANDRIKA Administration Sodium Chloride 1,000 mls @ 1,000 mls/hr 08/18/22 15:15 08/18/22 16:50 Normal Saline 0.9% IV Infused CONT CHANDRIKA Infusion NOREPINEPHRINE BITARTRATE/D5W 4 mg in 250 mls @ 30 mls/hr 08/18/22 21:56 08/19/22 07:01 Levophed IV 0 mcg/min TITRATE CHANDRIKA 0 mls/hr Titration Protocol 8 MCG/MIN Methylprednisolone 40 mg 08/19/22 00:41 08/19/22 01:58 Methylprednisolone 40 Mg/Ml Vial IV 40 mg Q8HR CHANDRIKA Administration Objective Labs Result Diagrams: 08/19/22 05:02 08/19/22 05:02 Labs: Laboratory Results - last 24 hr 08/18/22 08/18/22 08/18/22 14:55 14:55 14:55 WBC 6.1 RBC 4.18 Hgb 12.7 Hct 36.9 MCV 88.3 MCH 30.5 MCHC 34.5 RDW 13.8 Plt Count 254 Neut % (Auto) 56.1 Lymph % (Auto) 36.0 Alexander % (Auto) 5.7 Eos % (Auto) 1.5 L Baso % (Auto) 0.7 Neut # (Auto) 3400 Lymph # (Auto) 2200 Alexander # (Auto) 400 Eos # (Auto) 100 Baso # (Auto) 0 ABG pH ABG pCO2 ABG pO2 ABG HCO3 ABG Total CO2 ABG O2 Saturation ABG Base Excess FiO2 Sodium 134 L Potassium 3.5 Chloride 104 Carbon Dioxide 23 BUN 21 H Creatinine 0.79 Estimated GFR > 60 BUN/Creatinine Ratio 26.6 H Glucose 131 H Lactate 1.4 Calcium 9.4 Magnesium Total Bilirubin 0.4 AST 32 ALT 19 Alkaline Phosphatase 84 Total Creatine Kinase 127 CK-MB (CK-2) 1.82 CK-MB (CK-2) Rel Index 1.4 L Troponin I < 0.012 NT-Pro-B Natriuret Pep Total Protein 6.5 Albumin 3.7 Globulin 2.8 Albumin/Globulin Ratio 1.3 Lipase 160 TSH Free T4 Nasal Screen MRSA (PCR) SARS-CoV-2 (PCR) 08/18/22 08/18/22 08/18/22 14:55 14:55 18:15 WBC RBC Hgb Hct MCV MCH MCHC RDW Plt Count Neut % (Auto) Lymph % (Auto) Alexander % (Auto) Eos % (Auto) Baso % (Auto) Neut # (Auto) Lymph # (Auto) Alexander # (Auto) Eos # (Auto) Baso # (Auto) ABG pH ABG pCO2 ABG pO2 ABG HCO3 ABG Total CO2 ABG O2 Saturation ABG Base Excess FiO2 Sodium Potassium Chloride Carbon Dioxide BUN Creatinine Estimated GFR BUN/Creatinine Ratio Glucose Lactate Calcium Magnesium 2.1 Total Bilirubin AST ALT Alkaline Phosphatase Total Creatine Kinase CK-MB (CK-2) CK-MB (CK-2) Rel Index Troponin I < 0.012 NT-Pro-B Natriuret Pep 107 Total Protein Albumin Globulin Albumin/Globulin Ratio Lipase TSH 0.17 L Free T4 1.12 Nasal Screen MRSA (PCR) SARS-CoV-2 (PCR) 08/18/22 08/18/22 08/18/22 18:15 20:50 23:10 WBC RBC Hgb Hct MCV MCH MCHC RDW Plt Count Neut % (Auto) Lymph % (Auto) Alexander % (Auto) Eos % (Auto) Baso % (Auto) Neut # (Auto) Lymph # (Auto) Alexander # (Auto) Eos # (Auto) Baso # (Auto) ABG pH 7.37 ABG pCO2 41.1 ABG pO2 311 H* ABG HCO3 24 ABG Total CO2 25 ABG O2 Saturation 100 ABG Base Excess -2.0 FiO2 100 Sodium Potassium Chloride Carbon Dioxide BUN Creatinine Estimated GFR BUN/Creatinine Ratio Glucose Lactate Calcium Magnesium Total Bilirubin AST ALT Alkaline Phosphatase Total Creatine Kinase CK-MB (CK-2) CK-MB (CK-2) Rel Index Troponin I NT-Pro-B Natriuret Pep Total Protein Albumin Globulin Albumin/Globulin Ratio Lipase TSH Free T4 Nasal Screen MRSA (PCR) Negative for mrsa SARS-CoV-2 (PCR) Negative 08/19/22 08/19/22 08/19/22 01:15 05:02 05:02 WBC 5.4 8.9 D RBC 4.12 4.05 Hgb 12.5 12.5 Hct 36.8 36.1 MCV 89.5 89.2 MCH 30.3 30.8 MCHC 33.9 34.6 RDW 13.8 13.7 Plt Count 213 227 Neut % (Auto) 88.7 H D 91.0 H Lymph % (Auto) 6.9 L D 5.3 L Alexander % (Auto) 4.0 3.6 Eos % (Auto) 0.1 L 0.0 L Baso % (Auto) 0.3 0.1 Neut # (Auto) 4800 8100 H Lymph # (Auto) 400 L 500 L Alexander # (Auto) 200 300 Eos # (Auto) 0 0 Baso # (Auto) 0 0 ABG pH ABG pCO2 ABG pO2 ABG HCO3 ABG Total CO2 ABG O2 Saturation ABG Base Excess FiO2 Sodium 133 L Potassium 3.5 Chloride 105 Carbon Dioxide 21 L BUN 22 H Creatinine 0.85 Estimated GFR > 60 BUN/Creatinine Ratio 25.9 H Glucose 173 H Lactate Calcium 9.0 Magnesium Total Bilirubin 1.0 AST 26 ALT 18 Alkaline Phosphatase 57 Total Creatine Kinase CK-MB (CK-2) CK-MB (CK-2) Rel Index Troponin I NT-Pro-B Natriuret Pep Total Protein 5.9 L Albumin 3.3 L Globulin 2.6 Albumin/Globulin Ratio 1.3 Lipase TSH Free T4 Nasal Screen MRSA (PCR) SARS-CoV-2 (PCR) Exam Vital Signs (past 8 hours): - 08/19/22 00:30 08/19/22 00:30 08/19/22 00:45 Pulse Rate 85 80 Respiratory Rate 30 H 28 H Blood Pressure 94/58 L Pulse Oximetry 97 96 08/19/22 00:45 08/19/22 01:00 08/19/22 01:00 Pulse Rate 83 Respiratory Rate 29 H Blood Pressure 93/55 L 100/59 L Pulse Oximetry 96 08/19/22 01:15 08/19/22 01:15 08/19/22 01:30 Pulse Rate 82 Respiratory Rate 28 H Blood Pressure 96/59 L 89/55 L Pulse Oximetry 96 08/19/22 01:30 08/19/22 01:45 08/19/22 01:45 Pulse Rate 89 81 Respiratory Rate 28 H 25 H Blood Pressure 96/56 L Pulse Oximetry 96 95 08/19/22 02:00 08/19/22 02:00 08/19/22 02:15 Pulse Rate 82 81 Respiratory Rate 30 H 26 H Blood Pressure 95/55 L Pulse Oximetry 95 96 08/19/22 02:15 08/19/22 02:30 08/19/22 02:30 Pulse Rate 81 Respiratory Rate 30 H Blood Pressure 108/60 106/61 Pulse Oximetry 95 08/19/22 02:45 08/19/22 02:45 08/19/22 03:00 Pulse Rate 91 H Respiratory Rate 27 H Blood Pressure 99/56 L 90/51 L Pulse Oximetry 92 08/19/22 03:00 08/19/22 03:15 08/19/22 03:15 Pulse Rate 84 76 Respiratory Rate 31 H 26 H Blood Pressure 82/53 L Pulse Oximetry 94 97 08/19/22 03:30 08/19/22 03:30 08/19/22 03:45 Pulse Rate 77 79 Respiratory Rate 30 H 38 H Blood Pressure 103/60 Pulse Oximetry 94 96 08/19/22 03:45 08/19/22 04:00 08/19/22 04:00 Pulse Rate 77 Respiratory Rate 24 Blood Pressure 111/65 109/62 Pulse Oximetry 96 08/19/22 04:15 08/19/22 04:15 08/19/22 04:30 Pulse Rate 83 Respiratory Rate 25 H Blood Pressure 97/52 L 110/61 Pulse Oximetry 96 08/19/22 04:30 08/19/22 04:45 08/19/22 04:45 Pulse Rate 79 80 Respiratory Rate 27 H 24 Blood Pressure 124/69 Pulse Oximetry 95 95 08/19/22 05:00 08/19/22 05:00 08/19/22 05:15 Pulse Rate 85 79 Respiratory Rate 29 H 25 H Blood Pressure 98/56 L Pulse Oximetry 94 95 08/19/22 05:15 08/19/22 05:30 08/19/22 05:30 Pulse Rate 80 Respiratory Rate 25 H Blood Pressure 108/58 L 123/65 Pulse Oximetry 95 08/19/22 05:45 08/19/22 05:45 08/19/22 06:00 Pulse Rate 80 Respiratory Rate 27 H Blood Pressure 116/58 L 155/70 H Pulse Oximetry 96 08/19/22 06:00 08/19/22 06:15 08/19/22 06:15 Pulse Rate 71 85 Respiratory Rate 24 24 Blood Pressure 123/55 L Pulse Oximetry 95 94 08/19/22 06:30 08/19/22 06:30 08/19/22 06:45 Pulse Rate 82 Respiratory Rate 26 H Blood Pressure 110/58 L 120/55 L Pulse Oximetry 95 08/19/22 06:45 08/19/22 07:00 08/19/22 07:00 Pulse Rate 80 82 Respiratory Rate 27 H 35 H Blood Pressure 107/57 L Pulse Oximetry 96 96 08/19/22 07:15 08/19/22 07:15 08/19/22 07:30 Pulse Rate 80 Respiratory Rate 25 H Blood Pressure 108/59 L 99/56 L Pulse Oximetry 95 08/19/22 07:30 08/19/22 07:40 08/19/22 07:40 Pulse Rate 82 85 Respiratory Rate 24 35 H Blood Pressure 108/56 L Pulse Oximetry 95 94 Fraction of Inspired Oxygen 40 Oxygen Delivery Method Nasal Cannula Oxygen Flow Rate 2 Narrative Exam Narrative: Patient seen over two way audio visual system: She appears weak but is alert and conversant and in no distress on 2 L nc Assessment & Plan Assessment & Plan narrative: Assessment: Syncope- probable from vasovagal event after giving blood Aspiration PNA Acute respiratory distress probably from a combination of aspiration and pulm edema-improved with lasix Plan: -start Unasyn for aspiration PNA -Mota culture -ECHO -if BP remains stable off pressors and no signs of allergic reaction/anaphylaxis, would wean off steroids if hemodynamics remain stable off pressors and respiratory status remains good of NPPV, can transfer patient out of ICU later today PPX: SQ heparin CCT spent 45 min Time Spent With Patient Critical Care time: I spent a total of [] minutes of critical care time on this patient's care today; this time is exclusive of procedural time.
--- NOTE | 2022-08-19 09:12 | PM.PN.1 ---
Subjective Subjective Interval history: Patient feeling weak. Having no pain. No cough or fever. No nausea vomiting. No chest pain. No abdominal pain. Able to move all extremities. Per nursing, of measure advanced stabilized overnight with Levophed and it had been discontinued. However following discontinuation blood pressure has dropped. Systolic in the low 80s. Exam Vital Signs (past 8 hours): - 08/19/22 01:15 08/19/22 01:15 08/19/22 01:30 Pulse Rate 82 Respiratory Rate 28 H Blood Pressure 96/59 L 89/55 L Pulse Oximetry 96 08/19/22 01:30 08/19/22 01:45 08/19/22 01:45 Pulse Rate 89 81 Respiratory Rate 28 H 25 H Blood Pressure 96/56 L Pulse Oximetry 96 95 08/19/22 02:00 08/19/22 02:00 08/19/22 02:15 Pulse Rate 82 81 Respiratory Rate 30 H 26 H Blood Pressure 95/55 L Pulse Oximetry 95 96 08/19/22 02:15 08/19/22 02:30 08/19/22 02:30 Pulse Rate 81 Respiratory Rate 30 H Blood Pressure 108/60 106/61 Pulse Oximetry 95 08/19/22 02:45 08/19/22 02:45 08/19/22 03:00 Pulse Rate 91 H Respiratory Rate 27 H Blood Pressure 99/56 L 90/51 L Pulse Oximetry 92 08/19/22 03:00 08/19/22 03:15 08/19/22 03:15 Pulse Rate 84 76 Respiratory Rate 31 H 26 H Blood Pressure 82/53 L Pulse Oximetry 94 97 08/19/22 03:30 08/19/22 03:30 08/19/22 03:45 Pulse Rate 77 79 Respiratory Rate 30 H 38 H Blood Pressure 103/60 Pulse Oximetry 94 96 08/19/22 03:45 08/19/22 04:00 08/19/22 04:00 Pulse Rate 77 Respiratory Rate 24 Blood Pressure 111/65 109/62 Pulse Oximetry 96 08/19/22 04:15 08/19/22 04:15 08/19/22 04:30 Pulse Rate 83 Respiratory Rate 25 H Blood Pressure 97/52 L 110/61 Pulse Oximetry 96 08/19/22 04:30 08/19/22 04:45 08/19/22 04:45 Pulse Rate 79 80 Respiratory Rate 27 H 24 Blood Pressure 124/69 Pulse Oximetry 95 95 08/19/22 05:00 08/19/22 05:00 08/19/22 05:15 Pulse Rate 85 79 Respiratory Rate 29 H 25 H Blood Pressure 98/56 L Pulse Oximetry 94 95 08/19/22 05:15 08/19/22 05:30 08/19/22 05:30 Pulse Rate 80 Respiratory Rate 25 H Blood Pressure 108/58 L 123/65 Pulse Oximetry 95 08/19/22 05:45 08/19/22 05:45 08/19/22 06:00 Pulse Rate 80 Respiratory Rate 27 H Blood Pressure 116/58 L 155/70 H Pulse Oximetry 96 08/19/22 06:00 08/19/22 06:15 08/19/22 06:15 Pulse Rate 71 85 Respiratory Rate 24 24 Blood Pressure 123/55 L Pulse Oximetry 95 94 08/19/22 06:30 08/19/22 06:30 08/19/22 06:45 Pulse Rate 82 Respiratory Rate 26 H Blood Pressure 110/58 L 120/55 L Pulse Oximetry 95 08/19/22 06:45 08/19/22 07:00 08/19/22 07:00 Pulse Rate 80 82 Respiratory Rate 27 H 35 H Blood Pressure 107/57 L Pulse Oximetry 96 96 08/19/22 07:15 08/19/22 07:15 08/19/22 07:30 Pulse Rate 80 Respiratory Rate 25 H Blood Pressure 108/59 L 99/56 L Pulse Oximetry 95 08/19/22 07:30 08/19/22 07:40 08/19/22 07:40 Pulse Rate 82 85 Respiratory Rate 24 35 H Blood Pressure 108/56 L Pulse Oximetry 95 94 08/19/22 07:45 08/19/22 07:45 08/19/22 08:00 Pulse Rate 90 Respiratory Rate 30 H Blood Pressure 115/61 104/65 Pulse Oximetry 93 08/19/22 08:00 08/19/22 08:15 08/19/22 08:15 Pulse Rate 83 86 Respiratory Rate 33 H 29 H Blood Pressure 101/59 L Pulse Oximetry 93 93 08/19/22 08:30 08/19/22 08:30 Pulse Rate 94 H Respiratory Rate Blood Pressure 128/58 L Pulse Oximetry 94 Fraction of Inspired Oxygen 40 Oxygen Delivery Method Nasal Cannula Oxygen Flow Rate 2 Narrative Exam Narrative: [address] [address] History & Physical Report Patient: Martha Weeks MR#: [id number] : 1945 Acct:[id number] Age/Sex: 76 / F ? Date of Service: 08/18/22 Provider:?Temi Keene History of Present Illness History of Present Illness Date Patient Seen: 08/18/22 Time Patient Seen: 22:08 Chief complaint: Vasovagal episode after donating blood Narrative: Martha Weeks is a 76-year-old female with limited medical history and history of PVCs and multiple past orthopedic complaints, was in her usual state of health and donating blood when she had a vasovagal response.? Patient reportedly gave 1 unit of blood at her local [facility] She was assessed in the emergency department found to be hypoxic and shortness of breath satting into the 88% requiring 4 L. she was felt to be fluid overloaded and given IV Lasix for diuresis and placed on BiPAP.? She has no history of CHF.? Due to ongoing hypotension and with hypoxia, though improving on BiPAP it was decided to admitted to the ICU for further management of her hypoxia and hypotension. Two chest x-rays were done and they were both negative for any acute cardiopulmonary process.? Head CT was negative.? Chest abdomen and pelvis CT did note bilateral diffuse ground-glass and centrilobar opacities.? She is afebrile, blood pressure 95/55, heart rate 82, respiratory rate 30, oxygen saturation of 95% on 2 L with an FiO2 of 40 she weighs 93.5 kg with a BMI of 33.3.? CB UC was unremarkable, ABG PO2 post BiPAP was 311 and her oxygen was immediately decreased, Sodium was 134, glucose 131, proBNP was 107, TSH is low at 0.7 but free T4 was within normal limits, COVID 19 PCR is negative. FH:? Mother age 86 and had several strokes the 1st of which occurred at age 39, she does not know her father, she has a sister age 60 and a brother age 75 both of whom are well. Patient History Medical History? Bilateral arm pain Bilateral hand numbness Bilateral hand pain Cervical somatic dysfunction Chronic pain of left lower extremity Chronic pain of right knee Cranial somatic dysfunction Cyst Depression (Unknown) Diverticulitis Diverticulitis large intestine GERD (gastroesophageal reflux disease) (Unknown) Hair loss HTN (hypertension) Hyperlipemia (Unknown) Hypothyroidism (Unknown) Neck stiffness Osteopenia (~12/2015) Osteoporosis Palpitations PVC's (premature ventricular contractions) Segmental and somatic dysfunction of rib cage Somatic dysfunction of lower extremity Thoracic region somatic dysfunction TIA (transient ischemic attack) (2013) Transient left leg weakness Tremor of left hand Trigger finger Upper extremity somatic dysfunction Surgical History? History of left hip replacement Hx of cataract surgery Hx of section (Unknown) Hx of cholecystectomy (Unknown) Hx of tonsillectomy (Unknown) Status post ORIF of fracture of ankle (03/2016) Family & Social History Family History? Father HypertensionMother HypertensionSister?? Bipolar 1 disorder Social History: household members ? spouse? Safety & Behavioral: Feels Safe in Current ? Yes ? Environment ? Tobacco & Substance use: Smoking Status? Never smoker? alcohol intake? current ? alcohol intake frequency? holiday/special occasion? Substance Use Type? marijuana ? Meds Home Medications and Allergies Home Medications ?Medication ?Instructions ?Recorded ?Confirmed ?Type calcium carb 333 mg-vit D3 133 1 tab PO BID 11/17/19 07/10/22 History unit-mag ox 133 mg-zinc oxide 5 mg ? tab ? Cheleated Magnesium Glycinate PO BID 10/03/20 07/10/22 History acetylcarnitine 500 mg capsule 500 mg PO DAILY 10/03/20 07/10/22 History esomeprazole magnesium 20 mg 20 mg PO DAILY 10/03/20 07/10/22 History capsule,delayed release (Nexium ? 24HR) ? folic acid-vit B6-vit B12 0.8 1 tab PO DAILY 10/03/20 07/10/22 History mg-50 mg-100 mcg tablet ? (Homocysteine Formula) ? potassium gluconate 550 mg (90 mg) 550 mg PO DAILY 10/03/20 07/10/22 History tablet ? triamterene 37.5 See Rx Instructions .Route 03/04/22 07/10/22 Rx mg-hydrochlorothiazide 25 mg tablet .COMPLEX #90 tabs ? ? ? levothyroxine 50 mcg tablet See Rx Instructions .Route 03/19/22 07/10/22 Rx ? .COMPLEX #90 tabs ? ? ? thyroid (pork) 60 mg tablet See Rx Instructions .Route 03/19/22 07/10/22 Rx ([place] Thyroid) .COMPLEX #90 tabs ? ? ? coenzyme Q10 PO 04/08/22 07/10/22 History rosuvastatin 10 mg tablet See Rx Instructions .Route 06/26/22 07/10/22 Rx ? .COMPLEX #90 tabs ? ? ? Progesterone E4M #90 caps 06/30/22 07/10/22 Rx bupropion HCl 75 mg tablet 75 mg PO BID #180 tabs 08/18/22 08/18/22 Rx sertraline 25 mg tablet 25 mg PO DAILY #90 tabs 08/18/22 08/18/22 Rx Allergies Allergy/AdvReac Type Severity Reaction Status Date / Time omeprazole AdvReac Severe DRY MOUTH, Verified 08/18/22 15:05 ? ? ? changed ? taste ? sensations ? ? Review of Systems Review of Systems ROS: Yes All systems reviewed with the patient and are negative except as otherwise documented Exam Vital Signs (past 8 hours): - ? 08/18/22 15:03 08/18/22 15:00 08/18/22 15:05 Temperature 97.9 F ? ? Pulse Rate 80 81 80 Respiratory Rate 16 24 24 Blood Pressure 67/48 L 67/48 L 90/53 L Pulse Oximetry 86 L ? 89 L Oxygen Delivery Method Room Air Room Air Room Air Oxygen Flow Rate ? ? ? Fraction of Inspired Oxygen ? 08/18/22 15:10 08/18/22 15:15 08/18/22 15:30 Temperature ? ? ? Pulse Rate 77 74 74 Respiratory Rate 24 26 H 24 Blood Pressure 82/50 L 83/50 L 90/52 L Pulse Oximetry ? 96 97 Oxygen Delivery Method ? Nasal Cannula Nasal Cannula Oxygen Flow Rate ? 2 2 Fraction of Inspired Oxygen ? 08/18/22 16:58 08/18/22 17:00 08/18/22 17:00 Temperature ? ? ? Pulse Rate ? ? 90 Respiratory Rate ? ? 24 Blood Pressure 112/57 L 108/54 L ? Pulse Oximetry ? ? 93 Oxygen Delivery Method ? ? Nasal Cannula Oxygen Flow Rate ? ? 3 Fraction of Inspired Oxygen ? 08/18/22 17:30 08/18/22 17:30 08/18/22 18:00 Temperature ? ? ? Pulse Rate ? 83 ? Respiratory Rate ? ? ? Blood Pressure 100/54 L ? 98/53 L Pulse Oximetry ? ? ? Oxygen Delivery Method ? ? ? Oxygen Flow Rate ? ? ? Fraction of Inspired Oxygen ? 08/18/22 18:00 08/18/22 18:30 08/18/22 18:30 Temperature ? ? ? Pulse Rate 81 ? 92 H Respiratory Rate ? ? 35 H Blood Pressure ? 92/64 ? Pulse Oximetry 94 ? 88 L Oxygen Delivery Method Nasal Cannula ? ? Oxygen Flow Rate 2 ? ? Fraction of Inspired Oxygen ? 08/18/22 19:28 08/18/22 19:00 08/18/22 19:00 Temperature ? ? ? Pulse Rate ? ? 94 H Respiratory Rate ? ? 32 H Blood Pressure 90/58 L 102/56 L ? Pulse Oximetry ? ? 97 Oxygen Delivery Method ? ? ? Oxygen Flow Rate ? ? ? Fraction of Inspired Oxygen 100 ? ? ? 08/18/22 19:30 08/18/22 19:30 08/18/22 20:00 Temperature ? ? ? Pulse Rate ? 92 H 84 Respiratory Rate ? 32 H ? Blood Pressure 99/57 L ? ? Pulse Oximetry ? 99 100 Oxygen Delivery Method ? ? ? Oxygen Flow Rate ? ? ? Fraction of Inspired Oxygen ? 08/18/22 20:30 08/18/22 20:52 08/18/22 20:52 Temperature ? ? ? Pulse Rate 80 ? 80 Respiratory Rate ? ? ? Blood Pressure ? 91/55 L ? Pulse Oximetry 100 ? 100 Oxygen Delivery Method ? ? ? Oxygen Flow Rate ? ? ? Fraction of Inspired Oxygen ? 08/18/22 21:00 08/18/22 21:00 08/18/22 21:01 Temperature ? ? ? Pulse Rate ? 83 ? Respiratory Rate ? 26 H ? Blood Pressure 89/54 L ? 88/57 L Pulse Oximetry ? 99 ? Oxygen Delivery Method ? BiPAP ? Oxygen Flow Rate ? ? ? Fraction of Inspired Oxygen ? 08/18/22 21:01 08/18/22 21:30 08/18/22 21:30 Temperature ? ? ? Pulse Rate 81 ? 80 Respiratory Rate 31 H ? 32 H Blood Pressure ? 89/52 L ? Pulse Oximetry 100 ? 98 Oxygen Delivery Method BiPAP ? BiPAP Oxygen Flow Rate ? ? ? Fraction of Inspired Oxygen ? 08/18/22 21:45 Temperature ? Pulse Rate 78 Respiratory Rate 28 H Blood Pressure 101/55 L Pulse Oximetry ? Oxygen Delivery Method ? Oxygen Flow Rate ? Fraction of Inspired Oxygen ? Fraction of Inspired Oxygen ? 100 ? Oxygen Delivery Method? BiPAP ? Oxygen Flow Rate? 2 ? Narrative Exam Narrative: Gen: Alert, oriented, well-developed?female who appears weak but in no acute medical distress. HEENT: normocephalic, atraumatic, conjunctiva clear, sclera non-icteric, oral mucosa pink and moist Neck: supple, full ROM, no JVD, trachea is midline Resp:? Tachypnea. With O2 supplementation. By nasal prongs. CV: Heart sounds S1 and S2 no extra sounds, no murmur or rubs Abd: soft, non-tender, bowel sounds normal. Skin: no lesions or rashes, dry and intact Neuro: Alert and oriented X 4 w/no focal deficits. Speech clear and coherent. Extremities: moves all 4 extremities volitionally. Psyche: normal mood and affect. Objective Labs Result Diagrams: 08/19/22 05:02 08/19/22 05:02 Labs: Laboratory Results - last 24 hr 08/18/22 08/18/22 08/18/22 14:55 14:55 14:55 WBC 6.1 RBC 4.18 Hgb 12.7 Hct 36.9 MCV 88.3 MCH 30.5 MCHC 34.5 RDW 13.8 Plt Count 254 Neut % (Auto) 56.1 Lymph % (Auto) 36.0 [place] % (Auto) 5.7 Eos % (Auto) 1.5 L Baso % (Auto) 0.7 Neut # (Auto) 3400 Lymph # (Auto) 2200 [place] # (Auto) 400 Eos # (Auto) 100 Baso # (Auto) 0 ABG pH ABG pCO2 ABG pO2 ABG HCO3 ABG Total CO2 ABG O2 Saturation ABG Base Excess FiO2 Sodium 134 L Potassium 3.5 Chloride 104 Carbon Dioxide 23 BUN 21 H Creatinine 0.79 Estimated GFR > 60 BUN/Creatinine Ratio 26.6 H Glucose 131 H Lactate 1.4 Calcium 9.4 Magnesium Total Bilirubin 0.4 AST 32 ALT 19 Alkaline Phosphatase 84 Total Creatine Kinase 127 CK-MB (CK-2) 1.82 CK-MB (CK-2) Rel Index 1.4 L Troponin I < 0.012 NT-Pro-B Natriuret Pep Total Protein 6.5 Albumin 3.7 Globulin 2.8 Albumin/Globulin Ratio 1.3 Lipase 160 TSH Free T4 Nasal Screen MRSA (PCR) SARS-CoV-2 (PCR) 08/18/22 08/18/22 08/18/22 14:55 14:55 18:15 WBC RBC Hgb Hct MCV MCH MCHC RDW Plt Count Neut % (Auto) Lymph % (Auto) [place] % (Auto) Eos % (Auto) Baso % (Auto) Neut # (Auto) Lymph # (Auto) [place] # (Auto) Eos # (Auto) Baso # (Auto) ABG pH ABG pCO2 ABG pO2 ABG HCO3 ABG Total CO2 ABG O2 Saturation ABG Base Excess FiO2 Sodium Potassium Chloride Carbon Dioxide BUN Creatinine Estimated GFR BUN/Creatinine Ratio Glucose Lactate Calcium Magnesium 2.1 Total Bilirubin AST ALT Alkaline Phosphatase Total Creatine Kinase CK-MB (CK-2) CK-MB (CK-2) Rel Index Troponin I < 0.012 NT-Pro-B Natriuret Pep 107 Total Protein Albumin Globulin Albumin/Globulin Ratio Lipase TSH 0.17 L Free T4 1.12 Nasal Screen MRSA (PCR) SARS-CoV-2 (PCR) 08/18/22 08/18/22 08/18/22 18:15 20:50 23:10 WBC RBC Hgb Hct MCV MCH MCHC RDW Plt Count Neut % (Auto) Lymph % (Auto) [place] % (Auto) Eos % (Auto) Baso % (Auto) Neut # (Auto) Lymph # (Auto) [place] # (Auto) Eos # (Auto) Baso # (Auto) ABG pH 7.37 ABG pCO2 41.1 ABG pO2 311 H* ABG HCO3 24 ABG Total CO2 25 ABG O2 Saturation 100 ABG Base Excess -2.0 FiO2 100 Sodium Potassium Chloride Carbon Dioxide BUN Creatinine Estimated GFR BUN/Creatinine Ratio Glucose Lactate Calcium Magnesium Total Bilirubin AST ALT Alkaline Phosphatase Total Creatine Kinase CK-MB (CK-2) CK-MB (CK-2) Rel Index Troponin I NT-Pro-B Natriuret Pep Total Protein Albumin Globulin Albumin/Globulin Ratio Lipase TSH Free T4 Nasal Screen MRSA (PCR) Negative for mrsa SARS-CoV-2 (PCR) Negative 08/19/22 08/19/22 08/19/22 01:15 05:02 05:02 WBC 5.4 8.9 D RBC 4.12 4.05 Hgb 12.5 12.5 Hct 36.8 36.1 MCV 89.5 89.2 MCH 30.3 30.8 MCHC 33.9 34.6 RDW 13.8 13.7 Plt Count 213 227 Neut % (Auto) 88.7 H D 91.0 H Lymph % (Auto) 6.9 L D 5.3 L [place] % (Auto) 4.0 3.6 Eos % (Auto) 0.1 L 0.0 L Baso % (Auto) 0.3 0.1 Neut # (Auto) 4800 8100 H Lymph # (Auto) 400 L 500 L [place] # (Auto) 200 300 Eos # (Auto) 0 0 Baso # (Auto) 0 0 ABG pH ABG pCO2 ABG pO2 ABG HCO3 ABG Total CO2 ABG O2 Saturation ABG Base Excess FiO2 Sodium 133 L Potassium 3.5 Chloride 105 Carbon Dioxide 21 L BUN 22 H Creatinine 0.85 Estimated GFR > 60 BUN/Creatinine Ratio 25.9 H Glucose 173 H Lactate Calcium 9.0 Magnesium Total Bilirubin 1.0 AST 26 ALT 18 Alkaline Phosphatase 57 Total Creatine Kinase CK-MB (CK-2) CK-MB (CK-2) Rel Index Troponin I NT-Pro-B Natriuret Pep Total Protein 5.9 L Albumin 3.3 L Globulin 2.6 Albumin/Globulin Ratio 1.3 Lipase TSH Free T4 Nasal Screen MRSA (PCR) SARS-CoV-2 (PCR) [facility] Medical History Bilateral arm pain Bilateral hand numbness Bilateral hand pain Cervical somatic dysfunction Chronic pain of left lower extremity Chronic pain of right knee Cranial somatic dysfunction Cyst Depression (Unknown) Diverticulitis Diverticulitis large intestine GERD (gastroesophageal reflux disease) (Unknown) Hair loss HTN (hypertension) Hyperlipemia (Unknown) Hypothyroidism (Unknown) Neck stiffness Osteopenia (~12/2015) Osteoporosis Palpitations PVC's (premature ventricular contractions) Segmental and somatic dysfunction of rib cage Somatic dysfunction of lower extremity Thoracic region somatic dysfunction TIA (transient ischemic attack) (2013) Transient left leg weakness Tremor of left hand Trigger finger Upper extremity somatic dysfunction Surgical History History of left hip replacement Hx of cataract surgery Hx of section (Unknown) Hx of cholecystectomy (Unknown) Hx of tonsillectomy (Unknown) Status post ORIF of fracture of ankle (03/2016) Family History Father Hypertension Mother Hypertension Sister Bipolar 1 disorder Social History household members: spouse Smoking Status: Never smoker alcohol intake: current Assessment & Plan Assessment & Plan narrative: 1. Vasovagal episode following a blood donation.? Cause appears to be infective cause with opacities noted on CT of chest. 2. Hypotension requiring ICU admission with Levophed support. Earlier, at the end of the night the Levophed was discontinued however patient's systolic blood pressure dropped to low 80s and this needs to be re-initiated in followed. Concerning for sepsis component. Blood culture pending. 3. Workup for infective cause of hypotension. CT of chest and abd showed diffuse bilateral centrilobular ground-glass and reticular nodular opacities. Now on ampicillin 1.5 g IV every 6 hours just initiated. Also drawn blood cultures. Sputum culture pending as well. Follow labs and clinically. VTE Prophylaxis: Wells risk score 0 XEnoxaparin 40 mg subQ once daily? Bilateral SCDs Patient is admitted to the inpatient service due to the severity of disease, risks of continued hypotension requiring pressors and this stay is expected to exceed 2 midnights. FEN: IV fluids: saline lock, diet: heart healthy Consultants Intercept ICU care and involvement in the patient?s care is appreciated. Dispo: likely discharge to home Code status: DNR/DNI, the patient identifies Dar Mg and son Ronald Cooper as? her surrogate and POA Time Spent With Patient Critical Care time: I spent a total of [40] minutes of critical care time on this patient's care today; this time is exclusive of procedural time.
[2022-08-19] MEDS: ENOXAPARIN 40 MG/0.4 ML SYRINGE SUBCUT (09:18)
[2022-08-19] MEDS: POTASSIUM CHLORIDE 20 MEQ TAB 40 MEQ PO (09:41)
[2022-08-19] MEDS: AMPICILLIN/SULBACTAM 1.5 GM 1.5 GM in SODIUM CHLORIDE 0.9% 100 ML IV ×3 (09:58→20:33)
[2022-08-19] MEDS: SODIUM CHLORIDE 0.9% 250 ML 21 ML IV (10:00)
[2022-08-19 11:53] LABS: Appearance Urine UA SL CLOUDY; Bilirubin Urine UA NEGATIVE (NEGATIVE); Color Urine UA YELLOW; Glucose Urine UA TRACE g/dL (Negative); Ketones Urine UA NEGATIVE (NEGATIVE); Leukocyte Esterase Urine UA NEGATIVE (NEGATIVE); Nitrite Urine UA NEGATIVE (Negative); Occult Blood Urine UA NEGATIVE (Negative); Protein Urine UA NEGATIVE (Negative); Urobilinogen Urine UA 0.2 E.U./dL (0.2)
[2022-08-19 12:00] LABS: pH Urine UA 5.5 (4.5-8.0)
[2022-08-19 12:11] LABS: Bacteria Urine Moderate (10-30); Culture Indicated Urine Cult Not Indicated; RBC Urine 0-1/HPF (0-5/HPF); Squamous Epithelial Cell Urine 1-5 /HPF (0-5/HPF); WBC Urine 0-1/HPF (0-5/HPF)
--- NOTE | 2022-08-19 19:46 | PC.NURSE ---
Nursing Progress Note Pt AAOx4, LOPEZ, FC, OOB to chair today. No c/o pain. NSR. Low-dose levo on/off, currently off since ~1600. 2L NC, no desats. Heart healthy diet. 1 BM. AUOP. Mota cultured today, unable to obtain resp culture d/t nonproductive cough, specimen container at bedside and pt encouraged to provide sample when able.
--- NOTE | 2022-08-19 20:07 | PM.ICURNDS ---
- Date Patient Seen: 08/19/22 Time Patient Seen: 20:08 :: This patient was seen via real time interactive two-way audiovisual telecommunication. Note: Currently off pressor on 2 liters NC. Will monitor clinically. D/w RN and patient at bedside.
[2022-08-19] MEDS: NYSTATIN POWDER 15GM 1 APPLIC TOP (20:33)
[2022-08-19] MEDS: FAMOTIDINE 20 MG/2 ML VIAL IV (20:34)
[2022-08-20] VITALS (21 sets, daily range): BP systolic 101–156; BP diastolic 51–83; PULSE 81–106; RESP 11–43; TEMP 35.8–36.7; O2SAT 95–99
[2022-08-20] MEDS: AMPICILLIN/SULBACTAM 1.5 GM 1.5 GM in SODIUM CHLORIDE 0.9% 100 ML IV ×2 (02:06→08:39)
[2022-08-20 05:49] LABS: Add Manual Diff / Slide Review NO; Basophils Absolute Auto 0 /uL (0-100); Basophils Percent Auto 0.1 % (0-2); Eosinophils Absolute Auto 0 /uL (0-450); Hematocrit 31.8 % (36-46); Hemoglobin 11.1 g/dL (12.0-16.0); Lymphocytes Absolute Auto 500 /uL (1100-4500); Mean Corpuscular HGB Conc 34.7 % (30-36); Mean Corpuscular Hemoglobin 30.7 PG (26-34); Mean Corpuscular Volume 88.3 fL (80-100); Monocytes Absolute Auto 400 /uL (0-900); Monocytes Percent Auto 3.2 % (3-14); Neutrophils Absolute Auto 11500 /uL (1500-7000); Neutrophils Percent Auto 92.7 % (50-75); Platelet Count 197 X10^3/uL (150-400); Red Blood Cell Count 3.61 X10^6/uL (4.0-5.2); Red Cell Distribution Width 14.1 % (11.6-14.8); White Blood Cell Count 12.4 X10^3/uL (4.5-11.0)
[2022-08-20 05:55] LABS: Alanine Aminotransferase 17 IU/L (<35); Albumin Globulin Ratio 1.1 (1.0-2.8); Alkaline Phosphatase 54 U/L (38-126); Aspartate Aminotransferase 28 IU/L (14-36); BUN Creatinine Ratio 25.4 (6-22); Bilirubin Total 0.4 mg/dL (0.2-1.3); Blood Urea Nitrogen 17 mg/dL (7-17); Calcium 9.2 mg/dL (8.4-10.2); Carbon Dioxide 25 mmol/L (22-32); Chloride 102 mmol/L (98-107); Estimated Glomerular Filt Rate > 60 mL/min (>60); Globulin 2.8 g/dL (1.7-4.1); Glucose 140 mg/dL (80-110); HEMOLYSIS < 15 (0-50); Potassium 4.2 mmol/L (3.4-5.1); Sodium 132 mmol/L (137-145); Total Protein 5.8 g/dL (6.3-8.2)
[2022-08-20 06:11] LABS: Procalcitonin 6.06 ng/mL (<0.5)
[2022-08-20] MEDS: ACETAMINOPHEN 325 MG TABLET 650 MG PO ×2 (08:21→21:31)
[2022-08-20] MEDS: FAMOTIDINE 20 MG/2 ML VIAL IV ×2 (08:21→20:17)
[2022-08-20] MEDS: ENOXAPARIN 40 MG/0.4 ML SYRINGE SUBCUT (08:21)
--- NOTE | 2022-08-20 09:39 | P.TELICUPN_ITS ---
Subjective Subjective IF CAMERA ACTIVATED, patient seen via real-time interactive audiovisual communication: Camera activated Consent obtained for tele-logistics management specialist care: Yes Patient Location: ICU Provider location (State): [place] Other participants/roles: RN Interval history: 76 ho Woman with PMH of hypothyroidism was donating blood when she vomitted and passed out.? Pt. was hypotensive and given 1.5 L of IVF. Then she developed SOB and placed on NIPPV and given Lasix 40 mg IVP. Pt. started on NE at 2 mcg/min for BP support. CXR originally was clear but subsequent CXR showed B/L air space opacities.? CT of chest and abd showed diffuse bilateral centrilobular ground- glass and reticular nodular opacities and fecal impaction with slightly thickened rectal wall. Head CT neg 08/19: Patient started on Unasyn for aspiration PNA -patient on and off low dose NE drip -patient breathing well off BIPAP Recent Events: -patient's BP remains stable off NE drip which was stopped at 4 pm yesterday -patient currently requiring 1 L nc Current Medications Current Medications Medications: Home Medications calcium carb 333 mg-vit D3 133 unit-mag ox 133 mg-zinc oxide 5 mg tab 1 tab PO BID 11/17/19 [History Confirmed 08/19/22] Cheleated Magnesium Glycinate PO BID 10/03/20 [History Confirmed 07/10/22] acetylcarnitine 500 mg capsule 500 mg PO DAILY 10/03/20 [History Confirmed 08/19/22] folic acid-vit B6-vit B12 0.8 mg-50 mg-100 mcg tablet (Homocysteine Formula) 1 tab PO DAILY 10/03/20 [History Confirmed 08/19/22] potassium gluconate 550 mg (90 mg) tablet 550 mg PO DAILY 10/03/20 [History Confirmed 08/19/22] triamterene 37.5 mg-hydrochlorothiazide 25 mg tablet See Rx Instructions .Route .COMPLEX #90 tabs 03/04/22 [Rx Confirmed 08/19/22] levothyroxine 50 mcg tablet See Rx Instructions .Route .COMPLEX #90 tabs 03/19/22 [Rx Confirmed 08/19/22] thyroid (pork) 60 mg tablet ([place] Thyroid) See Rx Instructions .Route .COMPLEX #90 tabs 03/19/22 [Rx Confirmed 08/19/22] coenzyme Q10 PO 04/08/22 [History Confirmed 07/10/22] Progesterone E4M #90 caps 06/30/22 [Rx Confirmed 08/19/22] bupropion HCl 75 mg tablet 75 mg PO BID #180 tabs 08/18/22 [Rx Confirmed 08/19/22] sertraline 25 mg tablet 25 mg PO DAILY #90 tabs 08/18/22 [Rx Confirmed 08/19/22] Visit Medications (administered) Generic Name Dose Route Start Last Admin Trade Name Lisseth PRN Reason Stop Dose Admin Acetaminophen 650 mg 08/18/22 19:50 08/20/22 08:21 Acetaminophen 325 Mg Tablet PO 650 mg Q6HR PRN Administration Fever/Mild Pain (1-3) Enoxaparin Sodium 40 mg 08/19/22 09:00 08/20/22 08:21 Enoxaparin 40 Mg/0.4 Ml Syringe SUBCUT 40 mg DAILY CHANDRIKA Administration Famotidine 20 mg 08/19/22 21:00 08/20/22 08:21 Famotidine 20 Mg/2 Ml Vial IV 20 mg BID CHANDRIKA Administration Ampicillin Sodium/Sulbactam 100 mls @ 100 mls/hr 08/19/22 09:00 08/20/22 08:39 Sodium 1.5 gm/ Sodium Chloride IV 100 mls/hr Q6H CHANDRIKA Administration Sodium Chloride 250 mls @ 21 mls/hr 08/19/22 12:26 08/19/22 11:30 Normal Saline 0.9% IV 0 mls/hr Q24H PRN Infusion Flush Nystatin 1 applic 08/19/22 21:00 08/19/22 20:33 Nystatin Powder 15gm TOP 08/22/22 20:59 1 applic BID CHANDRIKA Administration Objective Labs Result Diagrams: 08/20/22 04:58 08/20/22 04:58 Labs: Laboratory Results - last 24 hr 08/19/22 08/20/22 08/20/22 08:00 04:58 04:58 WBC 12.4 H RBC 3.61 L Hgb 11.1 L Hct 31.8 L MCV 88.3 MCH 30.7 MCHC 34.7 RDW 14.1 Plt Count 197 Neut % (Auto) 92.7 H Lymph % (Auto) 4.0 L [place] % (Auto) 3.2 Eos % (Auto) 0.0 L Baso % (Auto) 0.1 Neut # (Auto) 79378 H Lymph # (Auto) 500 L [place] # (Auto) 400 Eos # (Auto) 0 Baso # (Auto) 0 Sodium 132 L Potassium 4.2 Chloride 102 Carbon Dioxide 25 BUN 17 Creatinine 0.67 Estimated GFR > 60 BUN/Creatinine Ratio 25.4 H Glucose 140 H Calcium 9.2 Total Bilirubin 0.4 AST 28 ALT 17 Alkaline Phosphatase 54 Total Protein 5.8 L Albumin 3.0 L Globulin 2.8 Albumin/Globulin Ratio 1.1 Procalcitonin 6.06 H Urine Color Yellow Urine Appearance Sl cloudy Urine pH 5.5 Ur Specific [place] 1.010 Urine Protein Negative Urine Glucose (UA) Trace H Urine Ketones Negative Urine Occult Blood Negative Urine Nitrate Negative Urine Bilirubin Negative Urine Urobilinogen 0.2 Ur Leukocyte Esterase Negative Urine RBC 0-1/hpf Urine WBC 0-1/hpf Ur Squamous Epith Cells 1-5 /hpf Urine Bacteria Moderate (10-30) H Ur Culture Indicated? Cult not indicated Exam Vital Signs (past 8 hours): - 08/20/22 02:00 08/20/22 02:00 08/20/22 03:00 Temperature Pulse Rate 86 Respiratory Rate 36 H Blood Pressure 132/62 101/52 L Pulse Oximetry 98 Oxygen Delivery Method Oxygen Flow Rate 08/20/22 03:00 08/20/22 04:00 08/20/22 04:00 Temperature Pulse Rate 85 Respiratory Rate 21 Blood Pressure 104/51 L Pulse Oximetry 96 Oxygen Delivery Method Nasal Cannula Oxygen Flow Rate 08/20/22 04:00 08/20/22 05:02 08/20/22 06:00 Temperature Pulse Rate 87 106 H Respiratory Rate 22 43 H Blood Pressure 145/72 H Pulse Oximetry 95 97 Oxygen Delivery Method Oxygen Flow Rate 2 08/20/22 06:00 Temperature 96.5 F L Pulse Rate 89 Respiratory Rate 11 L Blood Pressure Pulse Oximetry 98 Oxygen Delivery Method Oxygen Flow Rate 2 Fraction of Inspired Oxygen 40 Oxygen Delivery Method Nasal Cannula Oxygen Flow Rate 2 Narrative Exam Narrative: Patient seen over two way audio visual system. She is sitting up in chair, alert, conversant, breathing comfortably Assessment & Plan Assessment & Plan narrative: Assessment: Syncope- probable from vasovagal event after giving blood Aspiration PNA Acute respiratory distress probably from a combination of aspiration and pulm edema-improved with lasix Plan -continue Unasyn -d/c solumedrol -PT/OT Ok to transfer out of ICU CCT spent 35 min Time Spent With Patient Critical Care time: I spent a total of [] minutes of critical care time on this patient's care today; this time is exclusive of procedural time.
[2022-08-20] MEDS: NYSTATIN POWDER 15GM 1 APPLIC TOP ×2 (10:23→20:18)
--- NOTE | 2022-08-20 12:03 | PM.PN.1 ---
Subjective Subjective Interval history: Patient beginning to feel much better but still very tired. Still required O2 supplementation. Exam Vital Signs (past 8 hours): - 08/20/22 05:02 08/20/22 06:00 08/20/22 06:00 Temperature 96.5 F L Pulse Rate 106 H 89 Respiratory Rate 43 H 11 L Blood Pressure 145/72 H Pulse Oximetry 97 98 Oxygen Delivery Method Oxygen Flow Rate 2 2 08/20/22 07:00 08/20/22 07:00 08/20/22 08:00 Temperature Pulse Rate 84 81 Respiratory Rate 24 36 H Blood Pressure 149/71 H Pulse Oximetry 98 95 Oxygen Delivery Method Oxygen Flow Rate 08/20/22 09:00 08/20/22 08:00 08/20/22 10:00 Temperature Pulse Rate 95 H 90 Respiratory Rate Blood Pressure Pulse Oximetry 97 97 Oxygen Delivery Method Nasal Cannula Oxygen Flow Rate Fraction of Inspired Oxygen 40 Oxygen Delivery Method Nasal Cannula Oxygen Flow Rate 2 Narrative Exam Narrative: Gen: Alert, oriented, well-developed?female who appears weak but in no acute medical distress. On O2 supplementation. HEENT: normocephalic, atraumatic, conjunctiva clear, sclera non-icteric, oral mucosa pink and moist Neck: supple, full ROM, no JVD, trachea is midline Resp:? Tachypnea.? With O2 supplementation.? By nasal prongs. CV:? Heart sounds S1 and S2 no extra sounds, no murmur or rubs Abd: soft, non-tender, bowel sounds normal. Skin: no lesions or rashes, dry and intact Neuro: Alert and oriented X 4 w/no focal deficits. Speech clear and coherent. Extremities: moves all 4 extremities volitionally. Psyche: normal mood and affect. Objective Labs Result Diagrams: 08/20/22 04:58 08/20/22 04:58 Labs: Laboratory Results - last 24 hr 08/19/22 08/20/22 08/20/22 08:00 04:58 04:58 WBC 12.4 H RBC 3.61 L Hgb 11.1 L Hct 31.8 L MCV 88.3 MCH 30.7 MCHC 34.7 RDW 14.1 Plt Count 197 Neut % (Auto) 92.7 H Lymph % (Auto) 4.0 L [place] % (Auto) 3.2 Eos % (Auto) 0.0 L Baso % (Auto) 0.1 Neut # (Auto) 36839 H Lymph # (Auto) 500 L [place] # (Auto) 400 Eos # (Auto) 0 Baso # (Auto) 0 Sodium 132 L Potassium 4.2 Chloride 102 Carbon Dioxide 25 BUN 17 Creatinine 0.67 Estimated GFR > 60 BUN/Creatinine Ratio 25.4 H Glucose 140 H Calcium 9.2 Total Bilirubin 0.4 AST 28 ALT 17 Alkaline Phosphatase 54 Total Protein 5.8 L Albumin 3.0 L Globulin 2.8 Albumin/Globulin Ratio 1.1 Procalcitonin 6.06 H Urine RBC 0-1/hpf Urine WBC 0-1/hpf Ur Squamous Epith Cells 1-5 /hpf Urine Bacteria Moderate (10-30) H Ur Culture Indicated? Cult not indicated PFS Medical History Bilateral arm pain Bilateral hand numbness Bilateral hand pain Cervical somatic dysfunction Chronic pain of left lower extremity Chronic pain of right knee Cranial somatic dysfunction Cyst Depression (Unknown) Diverticulitis Diverticulitis large intestine GERD (gastroesophageal reflux disease) (Unknown) Hair loss HTN (hypertension) Hyperlipemia (Unknown) Hypothyroidism (Unknown) Neck stiffness Osteopenia (~12/2015) Osteoporosis Palpitations PVC's (premature ventricular contractions) Segmental and somatic dysfunction of rib cage Somatic dysfunction of lower extremity Thoracic region somatic dysfunction TIA (transient ischemic attack) (2013) Transient left leg weakness Tremor of left hand Trigger finger Upper extremity somatic dysfunction Surgical History History of left hip replacement Hx of cataract surgery Hx of section (Unknown) Hx of cholecystectomy (Unknown) Hx of tonsillectomy (Unknown) Status post ORIF of fracture of ankle (03/2016) Family History Father Hypertension Mother Hypertension Sister Bipolar 1 disorder Social History household members: spouse Smoking Status: Never smoker alcohol intake: current Assessment & Plan Assessment & Plan narrative: 1. Vasovagal episode following a blood donation.? Cause appears to be infective cause with opacities noted on CT of chest. Has bilateral lower lobe pneumonia. 2. Hypotension requiring ICU admission with Levophed support.? Earlier, at the end of the night the Levophed was discontinued however patient's systolic blood pressure dropped to low 80s and this needs to be re-initiated in followed.? A cultures have been negative. No longer needing pressor treatment. Pressure have resolved to normal for the patient. 3. Workup for infective cause of hypotension. CT of chest and and showed diffuse bilateral centrilobular ground-glass and reticular nodular opacities.? Sputum culture pending as well. Hypotension resolved. 4. Bilateral centrilobar/lower lobe pneumonia. Was on Unasyn this has been a switch to azithromycin and ceftriaxone. Consult speech language therapy to evaluate for silent aspiration. 5. CT evidence of impaction of with an impacted stool ball which may be stercoral colitis. Will improve bowel routine. 6. O2 dependency. Currently down to 1 liter/minute of supplementation. Titrate off oxygen supplementation. Follow labs and clinically. VTE Prophylaxis: Wells risk score 0 Enoxaparin 40 mg subQ once daily? Bilateral SCDs Patient is admitted to the inpatient service due to the severity of disease, risks of continued hypotension requiring pressors and this stay is expected to exceed 2 midnights. FEN: IV fluids: saline lock, diet: heart healthy Consultants [facility]cept ICU care and involvement in the patient?s care is appreciated. Consulting has signed off on the patient. Dispo: likely discharge to home Code status: DNR/DNI,? the patient identifies Dar Mg and son Ronald Cooper as? her surrogate and POA Time Spent With Patient Critical Care time: I spent a total of [] minutes of critical care time on this patient's care today; this time is exclusive of procedural time.
[2022-08-20] MEDS: AZITHROMYCIN 250 MG TABLET 500 MG PO (12:16)
[2022-08-20] MEDS: cefTRIAXone 1,000 MG in SODIUM CHLORIDE 0.9% 100 ML 200 MG IV (12:17)
[2022-08-20] MEDS: SODIUM CHLORIDE 0.9% 250 ML 21 ML IV (12:21)
[2022-08-20] MEDS: MAGNESIUM HYDROXIDE 30 ML UDC PO (12:35)
--- NOTE | 2022-08-20 12:55 | ST.IPSCREEN ---
Pt was reclined in bed when WEEKDAY BABYSITTER arrived. She reported no difficulty with speech and stated the only times she has trouble understanding others is when they speak quickly or have unfamiliar accents. She stated she will sometimes lose food anteriorly or not swallow an entire bolus when she is distracted while eating. Pt swallowed thin liquid via open cup with no overt signs or symptoms of aspiration and reported no difficulty chewing. Screened tongue ROM due to stated difficulty with clearing oral cavity following bites and ROM was WNL. Pt presented with symmetrical features at rest and in motion. Unable to rule out silent aspiration with bedside swallow evaluation. Pneumonia is likely due to aspiration of vomit during medical event. Speech therapy is not indicated at this time.
--- NOTE | 2022-08-20 15:26 | CM.DANOTE ---
Patient is a 76 yo female who was admitted on 08/18/22 for Passed Out. Pt has MCR and PRE PREF for insurance and her PCP is Dr. Thony Briscoe. EMR was reviewed. Per MD, pt with vasovagal response after giving blood for a blood drive and became hypoxic and admitted for hypoxia needing bipap, fluid overload, and pneumonia. Per Rn, pt's oxygen needs have decreased but remains on NC O2 and not yet medically stable to d/c. Sputum cultures still pending. Per [employer] ASSEMBLER, no further need for ST as pt tolerated swallow test but cannot rule out silent aspiration at this time. PT ordered and pending. 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 Pt denies any hx of HH or SNF and they have a local supportive son. Pt confirms she is feeling better but still not feeling safe for d/c home yet today. Pt states spouse is available for assist at d/c and very attentive. Pt preference is home when medically stable. Plan: SW to follow for PT eval and recommendations towards confirming safe d/c plan of home with spouse assist and r/o any HH needs. JOEY Delgado Discharge Planning/Care Management CM Discharge Assessment Start: 08/20/22 15:24 Freq: Status: Active Protocol: Document 08/20/22 15:24 BF (Rec: 08/20/22 15:25 BF [id number]) Discharge Planning Assessment Assigned Rebrander Aman Medina DPOA/Assigned Designee Name spouse Dar Mg Advance Directives? Yes Advance Directives on File No History Provided By Patient,Medical Record Has Patient been admitted in last 30 No days? Prior Living Arrangements House Household Members spouse Type of transporation used prior to Drives own vehicle admit Independent with ADL's Yes Is patient alert and oriented? Yes Caregiver for Another No Patient/Family Preference OP PT Therapy Barriers to Discharge No Discharge Plan Home Transportation Arrangement Spouse/Family Referrals Initiated None needed Whiteboard Updated in Patient Room with Yes name and ext. # of Rebrander Review Status In Process Please Provide Date Initial DC 08/20/22 Assessment Was Performed Next Review Type Continued Stay Review
--- NOTE | 2022-08-20 16:08 | PT.IIE ---
Current Diagnoses Hypotension, unspecified (08/18/22) Acute respiratory distress (08/18/22) Other specified symptoms and signs involving the circulatory and respiratory systems (08/18/22) Surgical History (Last Reviewed 08/19/22 @ 02:56 by CLEVE Argueta) History of left hip replacement Hx of cataract surgery Hx of section (Unknown) Hx of cholecystectomy (Unknown) Hx of tonsillectomy (Unknown) Status post ORIF of fracture of ankle (03/2016) Medical History (Last Reviewed 08/19/22 @ 02:56 by CLEVE Argueta) Bilateral arm pain Bilateral hand numbness Bilateral hand pain Cervical somatic dysfunction Chronic pain of left lower extremity Chronic pain of right knee Cranial somatic dysfunction Cyst Depression (Unknown) Diverticulitis Diverticulitis large intestine GERD (gastroesophageal reflux disease) (Unknown) Hair loss HTN (hypertension) Hyperlipemia (Unknown) Hypothyroidism (Unknown) Neck stiffness Osteopenia (~12/2015) Osteoporosis Palpitations PVC's (premature ventricular contractions) Segmental and somatic dysfunction of rib cage Somatic dysfunction of lower extremity Thoracic region somatic dysfunction TIA (transient ischemic attack) (2013) Transient left leg weakness Tremor of left hand Trigger finger Upper extremity somatic dysfunction Physical Therapy Inpatient Evaluation/Re-Eval M1 PT/OT-IP Prior Functional Status Start: 08/20/22 17:07 Freq: NEEDED Status: Active Protocol: Document 08/20/22 16:08 AB (Rec: 08/20/22 17:19 AB [id number]) Medical Review Prior Functional Status Medical History Reviewed Yes Communication able to make needs known Mobility and Gait pt stated that she is independent with all mobilities and ambulation without AD Social History Household Members spouse Living Arrangements House Number of Floors (Floors) Two Floors Number of Stairs To Enter/Railing? 5 steps to enter with wide rails 14 steps L rail ascending to laundry area Home Environment High Toilet,Walk in Shower, Built-In Shower Seat Home Equipment Hand Held Shower,Grab Bars Near Toilet,Grab Bars In Shower Additional Social History Comment stated that spouse is limited to the assistance he can provide due to his back issues M2 PT-IP Current Condition Start: 08/20/22 17:07 Freq: NEEDED Status: Active Protocol: Document 08/20/22 16:08 AB (Rec: 08/20/22 17:19 AB [id number]) Physical Therapy Current Condition Current Condition Evaluation Date 08/20/22 Treatment Diagnosis hypotension; PNA; difficulty in walking Onset Date 08/18/22 M3 PT-IP Subjective Start: 08/20/22 17:07 Freq: NEEDED Status: Active Protocol: Document 08/20/22 16:08 AB (Rec: 08/20/22 17:19 AB [email or web address]) Subjective Physical Therapy Visit Type Type Initial Evaluation Visit Start Time 16:08 Visit Stop Time 16:30 Total Visit Minutes 22 Number of EXPLOSIVE ORDNANCE MANAGER Visits 0 Physical Therapy Visit Comments Patient Comments agreeable to do PT Therapy Pain Assessment Pain When Pain Assessed coughing Location Chest Intensity 8 Scale Used Numeric (0 - 10) Pain Management Techniques Modification of Treatment,Re- positioning M4 PT-IP Mobility and Gait Start: 08/20/22 17:07 Freq: NEEDED Status: Active Protocol: Document 08/20/22 16:08 AB (Rec: 08/20/22 17:19 AB [email or web address]) PT-Bed Mobility Assessment Supine to Sit Supine to Sit Independent Sit to Supine Sit to Supine Independent PT-Transfer Assessment Sit to and From Stand Sit to and from Stand Standby Assistance,1 Person Assistance,Use of Upper Extremities Equipment Transfer Assistive Device None,Gait Belt Orthotic/Prosthetic Devices or Brace: No Transfers Transfer Destination Bed Transfer Technique Stand Step Pivot Transfer Ability Level of Assist Standby Assistance,1 Person Assistance,Use of Upper Extremities Comments Mobility Comments pt sitting on chair and agreed to do PT. BP sittin/82 O2 sat 94% with 1 1/2L/min O2. pt without c/o dizziness/ lightheadedness. completed sit to stand from chair SBA and step transfer to bed without AD SBA to CGA. completed sit<>supine mod I. completed sit to stand SBA and ambulated in room ~ 30 ft without AD SBA to CGA. pt with unsteady gait but without LOB. pt sat back on chair. (+ ) SOB and O2 sat checked: 90% with 1 1/2 L/min O2. cued for deep breathing. c/o chest pain with deep breathing and coughing. O2 sat increased to 94% in ~ 5 sec. positioned pt on chair. call light and table placed within reach. Gait Assessment Gait Gait Assistance Required: Standby Assistance,Contact Guard Assist Distance (Feet) 30 Able to Maintain Weight Bearing Status Yes During Gait Assistive Devices Assistive Device None,Gait Belt Orthotic/Prosthetic Devices or Brace: No Gait Deviations General Gait Pattern Decreased Stride Length, Decreased Feet Clearance Factors Limiting Gait Function Factors Limiting Gait Function Decreased Activity Tolerance, Decreased Strength,Poor Balance,Poor Safety Awareness, Respiratory Distress PT-Balance Assessment Sitting Balance and Reactions Static Sitting Balance Ability Normal Dynamic Sitting Balance Ability Good Standing Balance and Reactions Static Standing Balance Ability Good Dynamic Standing Balance Ability Fair Device Used without AD M5 PT-IP Objective Assessments Start: 08/20/22 17:07 Freq: NEEDED Status: Active Protocol: Document 08/20/22 16:08 AB (Rec: 08/20/22 17:19 AB [email or web address]) Orientation Orientation/Cognition Level of Alertness Alert Orientation Name,Place,Situation Language Function Ability No Deficits Noted Safety Awareness Understands Safety Issues Memory Description No Deficits Noted Gross Range of Motion Lower Extremity ROM Assessment Within Functional Limits Strength Lower Extremity Strength Assessment Within Functional Limits Coordination Assessment Gross Coordination Gross Coordination WNL Sensation Assessment Sensation Gross Sensation WNL Muscle Tone Muscle Tone WNL Yes M6 PT-IP Treatment Start: 08/20/22 17:07 Freq: NEEDED Status: Active Protocol: Document 08/20/22 16:08 AB (Rec: 08/20/22 17:19 AB [email or web address]) Physical Therapy Treatment Education Education Provided Safety M7 PT-IP Assessment and Plan Start: 08/20/22 17:07 Freq: NEEDED Status: Active Protocol: Document 08/20/22 16:08 AB (Rec: 08/20/22 17:19 AB [email or web address]) PT Summary Assessment and Plan Potential Rehabilitation Potential Good Status of Condition at Evaluation Evolving Summary Impairments Pain,Balance,Transfers,Gait, Activity Tolerance Assessment Summary pt requiring SBA to CGA with mobility but with decrease activity tolerance affecting mobility. (+) SOB with activity with O2 sat decreased to 90% with O2 on. will continue to assess progress. pt has stairs to get into the house and will need to complete prior to d/c. Goals Transfer Goal Independent Gait Goal Independent Gait Distance 200 Other Goals up/down 14 steps L rail ascending SBA Days to Meet Goals 10 Frequency of Treatment Frequency Of Treatment Once a Day Treatment Plan Physical Therapy Treatment Plan Bed Mobility Training,Transfer Training,Gait Training, Therapeutic Exercise,Balance Retraining,Discharge Planning, Hot or Cold Pack,Neuromuscular Re-ed,Coordination Retraining Precautions Other Precautions O2 sat Recommendations To Nursing Amount of Assist Needed 1 Person Assist Discharge Recommendations PT Discharge Recommendations Home with Assistance, Outpatient PT Other Discharge Recommendations cardiopulmonary rehab Transportation Needs at Discharge Private Vehicle,Wheelchair/ Cabulance
[2022-08-21] VITALS (9 sets, daily range): BP systolic 109–145; BP diastolic 55–82; PULSE 72–84; RESP 14–21; TEMP 36.3–36.5; O2SAT 93–98
[2022-08-21 05:44] LABS: Add Manual Diff / Slide Review NO; Basophils Absolute Auto 0 /uL (0-100); Basophils Percent Auto 0.3 % (0-2); Eosinophils Absolute Auto 0 /uL (0-450); Eosinophils Percent Auto 0.1 % (2-4); Hematocrit 31.7 % (36-46); Hemoglobin 10.8 g/dL (12.0-16.0); Lymphocytes Absolute Auto 900 /uL (1100-4500); Mean Corpuscular HGB Conc 33.9 % (30-36); Mean Corpuscular Hemoglobin 30.4 PG (26-34); Mean Corpuscular Volume 89.6 fL (80-100); Monocytes Absolute Auto 600 /uL (0-900); Monocytes Percent Auto 4.7 % (3-14); Neutrophils Absolute Auto 11000 /uL (1500-7000); Neutrophils Percent Auto 87.9 % (50-75); Platelet Count 218 X10^3/uL (150-400); Red Blood Cell Count 3.53 X10^6/uL (4.0-5.2); Red Cell Distribution Width 13.8 % (11.6-14.8); White Blood Cell Count 12.5 X10^3/uL (4.5-11.0)
[2022-08-21 05:50] LABS: Alanine Aminotransferase 19 IU/L (<35); Alkaline Phosphatase 64 U/L (38-126); Aspartate Aminotransferase 26 IU/L (14-36); BUN Creatinine Ratio 33.8 (6-22); Bilirubin Total 0.3 mg/dL (0.2-1.3); Blood Urea Nitrogen 23 mg/dL (7-17); C-Reactive Protein Quant 7.3 mg/dL (<1.0); Calcium 9.3 mg/dL (8.4-10.2); Carbon Dioxide 27 mmol/L (22-32); Chloride 101 mmol/L (98-107); Estimated Glomerular Filt Rate > 60 mL/min (>60); Globulin 2.9 g/dL (1.7-4.1); Glucose 116 mg/dL (80-110); HEMOLYSIS < 15 (0-50); Potassium 3.9 mmol/L (3.4-5.1); Sodium 135 mmol/L (137-145); Total Protein 5.9 g/dL (6.3-8.2)
[2022-08-21 06:04] LABS: Procalcitonin 4.13 ng/mL (<0.5)
[2022-08-21 06:17] LABS: TSH w/ Reflex to FT4 0.63 uIU/mL (0.47-4.68)
--- NOTE | 2022-08-21 09:07 | P.PN_ITS ---
Subjective Subjective Interval history: Main complaint is wheezing coughing all night. Is frustrated with the process of getting better and is a little bit teary. is visiting which is of benefit to her. Exam Vital Signs (past 8 hours): - 08/21/22 04:00 08/21/22 07:13 Temperature 97.5 F L Pulse Rate 82 Respiratory Rate 14 Blood Pressure 145/82 H Pulse Oximetry 96 97 Oxygen Delivery Method Nasal Cannula Oxygen Flow Rate 2 1.5 Fraction of Inspired Oxygen 40 Oxygen Delivery Method Nasal Cannula Oxygen Flow Rate 1.5 Narrative Exam Narrative: Gen: Alert, oriented, well-developed?female in no acute medical distress.? On O2 supplementation. Up in the chair ready for breakfast. HEENT: normocephalic, atraumatic, conjunctiva clear, sclera non-icteric, oral mucosa pink and moist Neck: supple, full ROM, no JVD, trachea is midline Resp:?? With O2 supplementation.? By nasal prongs. General decreased air entry throughout the lung ramirez with intermittent wheezing. Wheezing cleared by deeper inspiration and coughing. CV:? Heart sounds S1 and S2 no extra sounds, no murmur or rubs Abd: soft, non-tender, bowel sounds normal. Skin: no lesions or rashes, dry and intact Neuro: Alert and oriented X 4 w/no focal deficits. Speech clear and coherent. Extremities: moves all 4 extremities volitionally. Psyche: normal mood and affect. Objective Labs Result Diagrams: 08/21/22 04:54 08/21/22 04:54 Labs: Laboratory Results - last 24 hr 08/21/22 08/21/22 08/21/22 04:54 04:54 04:54 WBC 12.5 H RBC 3.53 L Hgb 10.8 L Hct 31.7 L MCV 89.6 MCH 30.4 MCHC 33.9 RDW 13.8 Plt Count 218 Neut % (Auto) 87.9 H Lymph % (Auto) 7.0 L [place] % (Auto) 4.7 Eos % (Auto) 0.1 L Baso % (Auto) 0.3 Neut # (Auto) 32655 H Lymph # (Auto) 900 L [place] # (Auto) 600 Eos # (Auto) 0 Baso # (Auto) 0 Sodium 135 L Potassium 3.9 Chloride 101 Carbon Dioxide 27 BUN 23 H Creatinine 0.68 Estimated GFR > 60 BUN/Creatinine Ratio 33.8 H Glucose 116 H Calcium 9.3 Total Bilirubin 0.3 AST 26 ALT 19 Alkaline Phosphatase 64 C-Reactive Protein 7.3 H Total Protein 5.9 L Albumin 3.0 L Globulin 2.9 Albumin/Globulin Ratio 1.0 Procalcitonin TSH 0.63 D 08/21/22 04:54 WBC RBC Hgb Hct MCV MCH MCHC RDW Plt Count Neut % (Auto) Lymph % (Auto) [place] % (Auto) Eos % (Auto) Baso % (Auto) Neut # (Auto) Lymph # (Auto) [place] # (Auto) Eos # (Auto) Baso # (Auto) Sodium Potassium Chloride Carbon Dioxide BUN Creatinine Estimated GFR BUN/Creatinine Ratio Glucose Calcium Total Bilirubin AST ALT Alkaline Phosphatase C-Reactive Protein Total Protein Albumin Globulin Albumin/Globulin Ratio Procalcitonin 4.13 H TSH PFSH Medical History Bilateral arm pain Bilateral hand numbness Bilateral hand pain Cervical somatic dysfunction Chronic pain of left lower extremity Chronic pain of right knee Cranial somatic dysfunction Cyst Depression (Unknown) Diverticulitis Diverticulitis large intestine GERD (gastroesophageal reflux disease) (Unknown) Hair loss HTN (hypertension) Hyperlipemia (Unknown) Hypothyroidism (Unknown) Neck stiffness Osteopenia (~12/2015) Osteoporosis Palpitations PVC's (premature ventricular contractions) Segmental and somatic dysfunction of rib cage Somatic dysfunction of lower extremity Thoracic region somatic dysfunction TIA (transient ischemic attack) (2013) Transient left leg weakness Tremor of left hand Trigger finger Upper extremity somatic dysfunction Surgical History History of left hip replacement Hx of cataract surgery Hx of section (Unknown) Hx of cholecystectomy (Unknown) Hx of tonsillectomy (Unknown) Status post ORIF of fracture of ankle (03/2016) Family History Father Hypertension Mother Hypertension Sister Bipolar 1 disorder Social History household members: spouse Smoking Status: Never smoker alcohol intake: current Assessment & Plan Assessment & Plan narrative: 1. Vasovagal episode following a blood donation.? Cause appears to be infective cause with opacities noted on CT of chest.? Has bilateral lower lobe pneumonia. 2. Hypotension requiring ICU admission with Levophed support.? Earlier, at the end of the first night the Levophed was discontinued however patient's systolic blood pressure dropped to low 80s and this needed to be re-initiated.? All cultures have been negative.? No longer needing pressor treatment.? Pressure have resolved to normal for the patient. 3. Workup for infective cause of hypotension. CT of chest showed diffuse bilateral centrilobular ground-glass and reticular nodular opacities.? Sputum culture pending result.? Hypotension resolved. 4. Bilateral centrilobar/lower lobe pneumonia.? Was on Unasyn this has been a switch to azithromycin and ceftriaxone.? WBC currently 12.5 and CRP 7.3, will follow. Consult speech language therapy to evaluate for silent aspiration -no aspiration. 5. CT evidence of impaction of with an impacted stool ball which may be stercoral colitis.? Will improve bowel routine. 6. O2 dependency.? Currently down to 1 to 1.5 liter/minute of supplementation.? Titrate off oxygen supplementation when can.?with better treatment of wheezing and decreased airflow in lungs, this should be of benefit. 7. Intermittent wheezing throughout the lung ramirez with decreased air entry and coughing. Patient on hand-held albuterol and nebulizer treatment on a as needed basis. Will treat with prednisone 30 mg daily for 5 days. Follow labs and clinically. VTE Prophylaxis: Wells risk score 0 Enoxaparin 40 mg subQ once daily? Bilateral SCDs Patient is admitted to the inpatient service due to the severity of disease, risks of continued hypotension requiring pressors and this stay is expected to exceed 2 midnights. FEN: IV fluids: saline lock, diet: heart healthy Consultants [facility] ICU care and involvement in the patient?s care is appreciated.? Consulting has signed off on the patient. Dispo: likely discharge to home Code status: DNR/DNI,? the patient identifies Dar Mg and son Rnoald Cooper as? her surrogate and POA Time Spent With Patient Critical Care time: I spent a total of [] minutes of critical care time on this patient's care today; this time is exclusive of procedural time.
[2022-08-21] MEDS: NYSTATIN POWDER 15GM 1 APPLIC TOP ×2 (10:10→20:44)
[2022-08-21] MEDS: ENOXAPARIN 40 MG/0.4 ML SYRINGE SUBCUT (10:12)
[2022-08-21] MEDS: AZITHROMYCIN 250 MG TABLET 500 MG PO (10:12)
[2022-08-21] MEDS: predniSONE 20 MG TABLET 30 MG PO (10:17)
[2022-08-21] MEDS: cefTRIAXone 1,000 MG in SODIUM CHLORIDE 0.9% 100 ML 200 MG IV (12:24)
--- NOTE | 2022-08-21 12:32 | PT-IP ANOTE ---
Attempted to see pt at 12:05, pt refused PT stating she recently ambulated w/ nursing staff and is wanting to rest. Confirmed w/ NARROW GAUGE OPERATOR that pt ambulated around nurses station and down hallway w/ 4WW and took 1x rest break, O2 remained 96-97%.
--- NOTE | 2022-08-21 13:25 | PT-IP ANOTE ---
Pt declined tx when arrived, she stated I am really to tired to do anything, I have been moving with nursing thought, agreeable for therapy to come back tomorrow. Pt understood benefits from mobility. Pt not seen will assess mobility progress tomorrow.
[2022-08-21] MEDS: ALBUTEROL/IPRATROPIUM 3 ML AMPUL INH (16:13)
[2022-08-21] MEDS: FAMOTIDINE 20 MG TABLET PO (20:43)
[2022-08-22] VITALS (11 sets, daily range): BP systolic 98–160; BP diastolic 52–85; PULSE 69–103; RESP 16–20; TEMP 36.1–36.8; O2SAT 93–98
[2022-08-22] MEDS: LEVOTHYROXINE 50 MCG TABLET PO (06:19)
[2022-08-22 06:57] LABS: Add Manual Diff / Slide Review NO; Basophils Absolute Auto 0 /uL (0-100); Basophils Percent Auto 0.2 % (0-2); Eosinophils Absolute Auto 100 /uL (0-450); Eosinophils Percent Auto 0.7 % (2-4); Hematocrit 31.6 % (36-46); Hemoglobin 11.1 g/dL (12.0-16.0); Lymphocytes Absolute Auto 1200 /uL (1100-4500); Lymphocytes Percent Auto 11.1 % (25-40); Mean Corpuscular HGB Conc 35.1 % (30-36); Mean Corpuscular Hemoglobin 30.9 PG (26-34); Mean Corpuscular Volume 87.9 fL (80-100); Monocytes Absolute Auto 600 /uL (0-900); Monocytes Percent Auto 5.6 % (3-14); Neutrophils Absolute Auto 8600 /uL (1500-7000); Neutrophils Percent Auto 82.4 % (50-75); Platelet Count 250 X10^3/uL (150-400); Red Cell Distribution Width 13.9 % (11.6-14.8); White Blood Cell Count 10.4 X10^3/uL (4.5-11.0)
[2022-08-22 07:31] LABS: Alanine Aminotransferase 22 IU/L (<35); Albumin 3.1 g/dL (3.5-5.0); Albumin Globulin Ratio 1.1 (1.0-2.8); Alkaline Phosphatase 61 U/L (38-126); Aspartate Aminotransferase 26 IU/L (14-36); BUN Creatinine Ratio 22.9 (6-22); Bilirubin Total 0.3 mg/dL (0.2-1.3); Blood Urea Nitrogen 16 mg/dL (7-17); C-Reactive Protein Quant 3.6 mg/dL (<1.0); Calcium 9.5 mg/dL (8.4-10.2); Carbon Dioxide 29 mmol/L (22-32); Chloride 100 mmol/L (98-107); Estimated Glomerular Filt Rate > 60 mL/min (>60); Globulin 2.8 g/dL (1.7-4.1); Glucose 86 mg/dL (80-110); HEMOLYSIS < 15 (0-50); Potassium 3.7 mmol/L (3.4-5.1); Sodium 134 mmol/L (137-145); Total Protein 5.9 g/dL (6.3-8.2)
[2022-08-22] MEDS: buPROPion 75 MG TABLET PO ×2 (08:50→21:33)
[2022-08-22] MEDS: predniSONE 20 MG TABLET 30 MG PO (08:50)
[2022-08-22] MEDS: FAMOTIDINE 20 MG TABLET PO ×2 (08:51→21:33)
[2022-08-22] MEDS: ENOXAPARIN 40 MG/0.4 ML SYRINGE SUBCUT (08:53)
[2022-08-22] MEDS: NYSTATIN POWDER 15GM 1 APPLIC TOP (08:56)
--- NOTE | 2022-08-22 09:01 | P.PN_ITS ---
Subjective Subjective Date Patient Seen: 08/22/22 Time Patient Seen: 13:00 Interval history: Patient notes ongoing hacking cough and feels very tired. No fevers. Exam Vital Signs (past 8 hours): - 08/22/22 04:00 08/22/22 07:52 08/22/22 08:14 Temperature 98.1 F 97.8 F Pulse Rate 69 69 Respiratory Rate 17 16 Blood Pressure 143/68 H 160/73 H Pulse Oximetry 97 97 95 Oxygen Delivery Method Nasal Cannula Oxygen Flow Rate 2 2 2 Fraction of Inspired Oxygen 28 Fraction of Inspired Oxygen 28 SaO2/FiO2 Ratio 346 Oxygen Delivery Method Nasal Cannula Oxygen Flow Rate 2 Narrative Exam Narrative: Gen: Alert, oriented, well-developed?female in no acute medical distress.? On O2 supplementation. Up in the chair ready for breakfast. HEENT: normocephalic, atraumatic, conjunctiva clear, sclera non-icteric, oral mucosa pink and moist Neck: supple, full ROM, no JVD, trachea is midline Resp:?? With O2 supplementation.? By nasal prongs. General decreased air entry throughout the lung ramirez with intermittent wheezing. Wheezing cleared by deeper inspiration and coughing. CV:? Heart sounds S1 and S2 no extra sounds, no murmur or rubs Abd: soft, non-tender, bowel sounds normal. Skin: no lesions or rashes, dry and intact Neuro: Alert and oriented X 4 w/no focal deficits. Speech clear and coherent. Extremities: moves all 4 extremities volitionally. Psyche: normal mood and affect. Objective Labs Result Diagrams: 08/22/22 06:30 08/22/22 06:30 Labs: Laboratory Results - last 24 hr 08/22/22 08/22/22 06:30 06:30 WBC 10.4 RBC 3.60 L Hgb 11.1 L Hct 31.6 L MCV 87.9 MCH 30.9 MCHC 35.1 RDW 13.9 Plt Count 250 Neut % (Auto) 82.4 H Lymph % (Auto) 11.1 L [place] % (Auto) 5.6 Eos % (Auto) 0.7 L Baso % (Auto) 0.2 Neut # (Auto) 8600 H Lymph # (Auto) 1200 [place] # (Auto) 600 Eos # (Auto) 100 Baso # (Auto) 0 Sodium 134 L Potassium 3.7 Chloride 100 Carbon Dioxide 29 BUN 16 Creatinine 0.70 Estimated GFR > 60 BUN/Creatinine Ratio 22.9 H Glucose 86 Calcium 9.5 Total Bilirubin 0.3 AST 26 ALT 22 Alkaline Phosphatase 61 C-Reactive Protein 3.6 H Total Protein 5.9 L Albumin 3.1 L Globulin 2.8 Albumin/Globulin Ratio 1.1 [facility] Medical History Bilateral arm pain Bilateral hand numbness Bilateral hand pain Cervical somatic dysfunction Chronic pain of left lower extremity Chronic pain of right knee Cranial somatic dysfunction Cyst Depression (Unknown) Diverticulitis Diverticulitis large intestine GERD (gastroesophageal reflux disease) (Unknown) Hair loss HTN (hypertension) Hyperlipemia (Unknown) Hypothyroidism (Unknown) Neck stiffness Osteopenia (~12/2015) Osteoporosis Palpitations PVC's (premature ventricular contractions) Segmental and somatic dysfunction of rib cage Somatic dysfunction of lower extremity Thoracic region somatic dysfunction TIA (transient ischemic attack) (2013) Transient left leg weakness Tremor of left hand Trigger finger Upper extremity somatic dysfunction Surgical History History of left hip replacement Hx of cataract surgery Hx of section (Unknown) Hx of cholecystectomy (Unknown) Hx of tonsillectomy (Unknown) Status post ORIF of fracture of ankle (03/2016) Family History Father Hypertension Mother Hypertension Sister Bipolar 1 disorder Social History household members: spouse Smoking Status: Never smoker alcohol intake: current Assessment & Plan Assessment & Plan narrative: 1. Vasovagal episode following a blood donation.? Cause appears to be infective cause with opacities noted on CT of chest.? Has bilateral lower lobe pneumonia. Orthostatics negative on 08/22. 2. Acute shock likely secondary to vasovagal?etiology now resolved, with septic shock ruled out. Initially required levophed support but this was weaned off. BP now 160 systolic. All infectious etiology negative. 3. Acute respiratory failure with hypoxemia, resolved. Required 3L NC to mainatin O2 sats >90%. Able to wean off O2. 4. Bilateral centrilobar/lower lobe pneumonia.? Was on Unasyn this has been a switch to azithromycin and ceftriaxone.? WBC currently 12.5 and CRP 7.3, will follow. Consult speech language therapy to evaluate for silent aspiration -no aspiration. -resp PCR negative -patient with ongoing cough, start tessalon perles and mucinex 5. CT evidence of impaction of with an impacted stool ball which may be st ercoral colitis.? Had large BM with mag citrate. 6. O2 dependency.? Currently down to 1 to 1.5 liter/minute of supplementation.? Titrate off oxygen supplementation when can.?with better treatment of wheezing and decreased airflow in lungs, this should be of benefit. 7. Intermittent wheezing throughout the lung ramirez with decreased air entry and coughing. Patient on hand-held albuterol and nebulizer treatment on a as needed basis. Will treat with prednisone 40 mg daily for 5 days. VTE Prophylaxis: 40 mg subQ once daily bilateral SCDs Dispo: likely discharge to home on 08/23 Code status: DNR/DNI,? the patient identifies Dar Mg and son Ronald Cooper as? her surrogate and POA Time Spent With Patient Critical Care time: I spent a total of [] minutes of critical care time on this patient's care today ; this time is exclusive of procedural time.
[2022-08-22] MEDS: SERTRALINE 50 MG TABLET 25 MG PO (10:54)
[2022-08-22] MEDS: AZITHROMYCIN 250 MG TABLET 500 MG PO (10:54)
[2022-08-22] MEDS: cefTRIAXone 1,000 MG in SODIUM CHLORIDE 0.9% 100 ML 200 MG IV (12:46)
[2022-08-22] MEDS: ACETAMINOPHEN 325 MG TABLET 650 MG PO (12:47)
[2022-08-22] MEDS: guaiFENesin ER 600 MG TAB PO ×2 (13:08→21:33)
--- NOTE | 2022-08-22 13:10 | OT.IPNOTE ---
Attempted to see pt for OT services x3 today. Pt declined each time stating that she was fatigued and just need to rest. Per nursing, pt has had a busy morning and has not been able to nap. Will hold and continue to follow for OT services.
--- NOTE | 2022-08-22 13:12 | PT-IP ANOTE ---
Pt not wanting to participate w/ PT today due to fatigue. Reports she has been ambulating independently w/o AD in room, DIRECTOR GLOBAL SALES confirms. Pt c/o fatigue and just wants to get some sleep. States that she has multiple steps down to basement/laundry but confirms she can avoid those temporarily and can assist. Does have 3 JUSTIN, but does not wish to practice at this time and feels she can complete w/o any issues. Discussed FWW for home use, pt states she will contact [employer] but also reports FWW is too cumbersome in her home.
[2022-08-22] MEDS: BENZONATATE 100 MG CAPSULE PO ×2 (14:51→21:36)
[2022-08-22 15:01] LABS: Adenovirus Not Detected (Not Detect); B. parapertussis Not Detected (Not Detecte); Bordetella pertussis Not Detected (Not Detecte); Chlamydophila pneumoniae Not Detected (Not Detect); Coronavirus 229E Not Detected (Not Detect); Coronavirus HKU1 Not Detected (Not Detect); Coronavirus NL 63 Not Detected (Not Detect); Coronavirus OC43 Not Detected (Not Detect); Human Metapneumovirus Not Detected (Not Detect); Human Rhinovirus/Enterovirus Not Detected (Not Detect); Influenza A Not Detected (Not Detect); Influenza B Not Detected (Not Detect); Mycoplasma pneumoniae Not Detected (Not Detect); Parainfluenza Virus 1 Not Detected (Not Detect); Parainfluenza Virus 2 Not Detected (Not Detect); Parainfluenza Virus 3 Not Detected (Not Detect); Parainfluenza Virus 4 Not Detected (Not Detect); Respiratory Syncytial Virus Not Detected (Not Detect); SARS- CoV-2 Not Detected (Not Detecte)
[2022-08-22] MEDS: ALBUTEROL/IPRATROPIUM 3 ML AMPUL INH ×2 (15:15→20:56)
--- NOTE | 2022-08-22 19:22 | PC.NURSE ---
Pt AAOx4, LOPEZ, FC. C/o headache, Tylenol given with relief. OOB independently, walked around the unit today w/ walker. VSS. Room air, no desats. Intermittent coughing fits and wheezing noted, respiratory panel sent (negative), nebs/cough relief meds administered, refer to JAN. Heart healthy diet. AUOP.
[2022-08-23] MEDS: CODEINE/GUAIFENESIN LIQUID 5ML UDC 5 ML PO ×2 (00:05→05:52)
[2022-08-23 00:22] VITALS: BP 137/82; PULSE 80; RESP 16; TEMP 36.2; O2SAT 95
[2022-08-23] MEDS: LEVOTHYROXINE 50 MCG TABLET PO (05:49)
[2022-08-23 06:20] VITALS: BP 148/76; PULSE 79; RESP 17; TEMP 36.4; O2SAT 92
--- NOTE | 2022-08-23 07:36 | P.DS_ITS ---
History of Present Illness History of Present Illness Date Patient Seen: 08/23/22 Time Patient Seen: 11:38 Chief complaint: Vasovagal episode after donating blood Narrative: Martha Weeks is a 76-year-old female with limited medical history and history of PVCs and multiple past orthopedic complaints, was in her usual state of health and donating blood when she had a vasovagal response.? Patient reportedly gave 1 unit of blood at her local [address] She was assessed in the emergency department found to be hypoxic and shortness of breath satting into the 88% requiring 4 L. she was felt to be fluid overloaded and given IV Lasix for diuresis and placed on BiPAP.? She has no history of CHF.? Due to ongoing hypotension and with hypoxia, though improving on BiPAP it was decided to admitted to the ICU for further management of her hypoxia and hyp otension. Two chest x-rays were done and they were both negative for any acute cardiopulmonary process.? Head CT was negative.? Chest abdomen and pelvis CT did note bilateral diffuse ground-glass and centrilobar opacities.? She is afebrile, blood pressure 95/55, heart rate 82, respiratory rate 30, oxygen saturation of 95% on 2 L with an FiO2 of 40 she weighs 93.5 kg with a BMI of 33.3.? CB UC was unremarkable, ABG PO2 post BiPAP was 311 and her oxygen was immediately decreased, Sodium was 134, glucose 131, proBNP was 107, TSH is low at 0.7 but free T4 was within normal limits, COVID 19 PCR is negative. FH:? Mother age 86 and had several strokes the 1st of which occurred at age 39, she does not know her father, she has a sister age 60 and a brother age 75 both of whom are well. Discharge Providers Provider Date of admission: 08/18/22 19:43 Discharge Date: 08/23/22 Primary care physician: Aki Briscoe DO Consults: 08/20/22 09:51 Consult to Physical Therapy Evaluate & Treat Comment: Physician Instructions: Evaluate and Treat 08/20/22 12:01 Consult to Speech Therapy Evaluate & Treat Comment: Assess for silent aspiration Physician Instructions: Evaluate and treat 08/22/22 09:06 Consult to Occupational Therapy Evaluate & Treat Comment: Physician Instructions: Evaluate and treat Discharge provider: Lambert Lopez DO Summary Hospital Course Discharge Diagnosis: 1. Vasovagal episode following a blood donation.? Cause appears to be infective cause with opacities noted on CT of chest.?Orthostatics negative on 08/22. 2. Acute shock likely secondary to vasovagal?etiology now resolved, with septic shock ruled out. Initially required levophed support but this was weaned off. BP now 160 systolic. All infectious etiology negative. 3. Acute respiratory failure with hypoxemia, resolved. Required 3L NC to mainatin O2 sats >90%. Able to wean off O2. 4. Bilateral centrilobar/lower lobe pneumonia.? Was on Unasyn this has been a switch to azithromycin and ceftriaxone.? WBC currently 12.5 and CRP 7.3, will follow. Consult speech language therapy to evaluate for silent aspiration -no aspiration. -resp PCR negative -patient with ongoing cough, start tessalon perles and mucinex -discharged on po abx 5. CT evidence of impaction of with an impacted stool ball which may be stercoral colitis.? Had large BM with mag citrate. 6. O2 dependency.? Currently down to 1 to 1.5 liter/minute of supplementation.? Titrate off oxygen supplementation when can.?with better treatment of wheezing and decreased airflow in lungs, this should be of benefit. 7. Intermittent wheezing throughout the lung ramirez with decreased air entry and coughing.? Patient on hand-held albuterol and nebulizer treatment on a as needed basis.? Will treat with prednisone 40 mg daily for 5 days.? Hospital Course: Patient came in after syncopizing after giving blood. Believed to be vasovagal in nature, and patient required brief levophed support which was weaned off. CT chest showed bilateral opacities concerning for aspiration pneumonia so she rece ived IV abx. Patient improved and able to wean off O2 and had no drop in BP on orthostatics. Continued to have a hacking cough so discharged on cough syrup with codiene which helped during admission. Also given steroids in case of reactive airway disease given wheezing on exam. She was discharged on 2 additional days of po prednisone and a few more days of po abx. Exam Vital Signs (past 8 hours): - 08/23/22 00:22 08/23/22 06:20 Temperature 97.1 F L 97.5 F L Pulse Rate 80 79 Respiratory Rate 16 17 Blood Pressure 137/82 148/76 H Pulse Oximetry 95 92 Oxygen Flow Rate 0 0 Fraction of Inspired Oxygen 93 SaO2/FiO2 Ratio 346 Oxygen Delivery Method Room Air Oxygen Flow Rate 0 Narrative Exam Narrative: Gen: Alert, oriented, well-developed?female in no acute medical distress. Hacking cough present. HEENT: normocephalic, atraumatic, conjunctiva clear, sclera non-icteric, oral mucosa pink and moist Neck: supple, full ROM, no JVD, trachea is midline Resp:?General decreased air entry throughout the lung ramirez with intermittent wheezing. Wheezing cleared by deeper inspiration and coughing. CV:? Heart sounds S1 and S2 no extra sounds, no murmur or rubs Abd: soft, non-tender, bowel sounds normal. Skin: no lesions or rashes, dry and intact Neuro: Alert and oriented X 4 w/no focal deficits. Speech clear and coherent. Extremities: moves all 4 extremities volitionally. Psyche: normal mood and affect. Objective Labs Result Diagrams: 08/22/22 06:30 08/22/22 06:30 Labs: Laboratory Results - last 24 hr 08/22/22 13:50 Chlamy pneumoniae PCR Not detected Adenovirus (PCR) Not detected B. pertussis DNA (PCR) Not detected B.parapertussis DNA PCR Not detected Coronavirus OC43 (PCR) Not detected Coronavirus HKU1 (PCR) Not detected Coronavirus 229E (PCR) Not detected SARS-CoV-2 (PCR) Not detected Coronavirus NL63 (PCR) Not detected Human Metapneumovir PCR Not detected Influenza Type A (PCR) Not detected Influenza Type B (PCR) Not detected M. pneumoniae (PCR) Not detected Parainfluenza 1 (PCR) Not detected Parainfluenza 2 (PCR) Not detected Parainfluenza 3 (PCR) Not detected Parainfluenza 4 (PCR) Not detected RSV (PCR) Not detected Entero/Rhino (PCR) Not detected [facility] Medical History Bilateral arm pain Bilateral hand numbness Bilateral hand pain Cervical somatic dysfunction Chronic pain of left lower extremity Chronic pain of right knee Cranial somatic dysfunction Cyst Depression (Unknown) Diverticulitis Diverticulitis large intestine GERD (gastroesophageal reflux disease) (Unknown) Hair loss HTN (hypertension) Hyperlipemia (Unknown) Hypothyroidism (Unknown) Neck stiffness Osteopenia (~12/2015) Osteoporosis Palpitations PVC's (premature ventricular contractions) Segmental and somatic dysfunction of rib cage Somatic dysfunction of lower extremity Thoracic region somatic dysfunction TIA (transient ischemic attack) (2013) Transient left leg weakness Tremor of left hand Trigger finger Upper extremity somatic dysfunction Surgical History History of left hip replacement Hx of cataract surgery Hx of section (Unknown) Hx of cholecystectomy (Unknown) Hx of tonsillectomy (Unknown) Status post ORIF of fracture of ankle (03/2016) Family History Father Hypertension Mother Hypertension Sister Bipolar 1 disorder Social History household members: spouse Smoking Status: Never smoker alcohol intake: current Discharge Plan Discharge Plan Patient Disposition: Home Provider Discharge Comment: You were admitted for fainting after giving blood, which was likely a result of the immediate blood loss. We found you may have had a pneumonia so will need to finish 2 more days of antibiotics and 2 more days of steroids. Discharge orders & Medications Prescriptions: New codeine-guaifenesin 10-100 mg/5 mL Liquid 10 ml PO Q6H PRN (Reason: Cough) Qty: 120 0RF Continued triamterene-hydrochlorothiazid 37.5-25 mg tablet See Rx Instructions .ROUTE .COMPLEX Qty: 90 3RF Dose Instruction: take 1 tablet by mouth once daily Rx Instructions: take 1 tablet by mouth once daily thyroid (pork) [Molina Thyroid] 60 mg tablet See Rx Instructions .ROUTE .COMPLEX Qty: 90 3RF Dose Instruction: take 1 tablet by mouth once daily Rx Instructions: take 1 tablet by mouth once daily levothyroxine 50 mcg tablet See Rx Instructions .ROUTE .COMPLEX Qty: 90 3RF Dose Instruction: take 1 tablet by mouth once daily Rx Instructions: take 1 tablet by mouth once daily (DME) PROGESTERONE E4M 125MG CAPSULE 125MG CAPSULE See Rx Instructions .ROUTE .COMPLEX Qty: 90 3RF Dose Instruction: Take 1 capsule by mouth each night at bedtime Rx Instructions: Take 1 capsule by mouth each night at bedtime Cheleated Magnesium Glycinate 400 mg 400 mg PO BID potassium gluconate 550 mg (90 mg) tablet 550 mg PO DAILY acetylcarnitine 500 mg capsule 500 mg PO DAILY Homocysteine Formula 0.8-50-100 mg-mg-mcg tablet 1 tab PO DAILY coenzyme Q10 10 cap PO DAILY sertraline 25 mg tablet 25 mg PO DAILY Qty: 90 1RF bupropion HCl 75 mg tablet 75 mg PO BID Qty: 180 3RF calcium carb-D3-mag ox-zinc ox 333 mg-133 unit -133 mg-5 mg Tablet 1 tab PO BID Follow up/Referrals: Aki Briscoe DO [Primary Care Provider] - Visit Report/Discharge Packet Instructions: DI for Heart Failure, DI for Respiratory Failure, Prednisone, Amoxicillin and Clavulanic Acid Discharge Data Primary Care Provider: Aki Briscoe
[2022-08-23] MEDS: buPROPion 75 MG TABLET PO (08:07)
[2022-08-23] MEDS: SERTRALINE 50 MG TABLET 25 MG PO (08:08)
[2022-08-23] MEDS: ACETAMINOPHEN 325 MG TABLET 650 MG PO (08:08)
[2022-08-23] MEDS: FAMOTIDINE 20 MG TABLET PO (08:08)
[2022-08-23] MEDS: predniSONE 20 MG TABLET 40 MG PO (08:11)
[2022-08-23] MEDS: guaiFENesin ER 600 MG TAB PO (08:26)
[2022-08-23 10:00] VITALS: BP 127/72; PULSE 85; RESP 17; TEMP 36.1; O2SAT 95
--- NOTE | 2022-08-23 12:33 | CM.DPC ---
DCP Discharge Home Per MD, pt is medically stable to d/c home today with no identified barriers to discharge. Per RN, pt has been independent in room and ambulating halls with walker and no concerns noted. Plan: Patient to d/c home today via spouse POV and no further SW needs at this time. JOEY Delgado
--- NOTE | 2022-08-23 12:55 | PC.NURSE ---
Pt is dressed and ready for discharge home with Spouse. discharge plan reviewed with Pt and Spouse and Pt denied further questions. Pt out via w/c by STITCHER SET UP OPERATOR AUTOMATIC to POV with Spouse and all belongings.
== END 2022-08-23 12:56 | disposition home or self-care (01) | DRG 193 ==
LOC: ED 19:37 → AC 19:44 → ICU 21:34 → AC 08-22 20:19
PROVIDERS: Internal Medicine; Neuromusculoskeletal Medicine, Sports Medicine; Student in an Organized Health Care Education/Training Program; Admitting Provider Nurse Practitioner Family; Emergency Provider Emergency Medicine; PCP Family Medicine; Referring Provider Emergency Medicine; Visit Provider Nurse Practitioner Family
DX: J18.9 Pneumonia, unspecified organism (principal); J96.01 Acute respiratory failure with hypoxia; R57.8 Other shock; K56.41 Fecal impaction; I10 Essential (primary) hypertension; E03.9 Hypothyroidism, unspecified; F32.A Depression, unspecified; Z20.822 Contact with and (suspected) exposure to COVID-19; Z66 Do not resuscitate
CPT/HCPCS: 36415; 36600; 51798; 70450; 71045; 71260; 74177; 80053; 81001; 81003; 82550; 82553; 82805; 83605; 83690; 83735; 83880; 84145; 84439; 84443; 84484; 85025; 86140; 87040; 87070; 87205; 87633; 87635; 87797; 93005; 93010; 93306; 94640; 94660; 94760; 96374; 96375; 97162; 99284; 99285; 99291; C9803; A9270; J0295; J0696; J1650; J1940; J2060; J2405; J2765; J2920

== ENCOUNTER → 2022-09-14 15:55 | Outpatient (CLI) | payer MEDICARE, OTHER, SELFPAY ==
[2022-08-18 21:50] VITALS: PULSE 82; RESP 17; O2SAT 95
[2022-08-18 22:55] VITALS: BMI 33.3
--- NOTE | 2022-09-14 15:57 | DI.RAD.S_ITS ---
PROCEDURE: XR CHEST 2V INDICATIONS: Cough TECHNIQUE: 2 views of the chest were acquired. COMPARISON: [facility], CR, XR CHEST 1V, 08/18/2022, 18:33. FINDINGS: Surgical changes and devices: None. Lungs and pleura: Previously seen bilateral pulmonary opacities have significantly decreased. No pleural effusions or pneumothorax. Mediastinum: Mediastinal contours are normal. Heart size is normal. Bones and chest wall: No suspicious bony abnormalities. Soft tissues appear unremarkable. IMPRESSION: Decreased bilateral pulmonary opacities. Recommend continued radiographic follow-up to resolution. Dictated by: Veto Garcia M.D. on 09/14/2022 at 20:27 Approved by: Veto Garcia M.D. on 09/14/2022 at 20:28
== END ==
PROVIDERS: PCP Family Medicine; Referring Provider Nurse Practitioner Family; Visit Provider Nurse Practitioner Family
DX: R05.9 Cough, unspecified (principal)
CPT/HCPCS: 71046

== ENCOUNTER → 2023-01-01 07:26 | Outpatient (CLI) | payer MEDICARE, OTHER, SELFPAY ==
[2022-08-18 21:50] VITALS: PULSE 82; RESP 17; O2SAT 95
[2022-08-18 22:55] VITALS: BMI 33.3
[2023-01-01 08:19] LABS: Add Manual Diff / Slide Review NO; Basophils Absolute Auto 0 /uL (0-100); Basophils Percent Auto 0.8 % (0-2); Eosinophils Absolute Auto 100 /uL (0-450); Eosinophils Percent Auto 1.8 % (2-4); Hematocrit 40.3 % (36-46); Hemoglobin 13.6 g/dL (12.0-16.0); Lymphocytes Absolute Auto 1300 /uL (1100-4500); Lymphocytes Percent Auto 30.1 % (25-40); Mean Corpuscular HGB Conc 33.8 % (30-36); Mean Corpuscular Hemoglobin 29.5 PG (26-34); Mean Corpuscular Volume 87.5 fL (80-100); Monocytes Absolute Auto 300 /uL (0-900); Monocytes Percent Auto 6.4 % (3-14); Neutrophils Absolute Auto 2700 /uL (1500-7000); Neutrophils Percent Auto 60.9 % (50-75); Platelet Count 241 X10^3/uL (150-400); Red Cell Distribution Width 14.3 % (11.6-14.8); White Blood Cell Count 4.5 X10^3/uL (4.5-11.0)
[2023-01-01 08:38] LABS: Alanine Aminotransferase 23 IU/L (<35); Albumin 3.9 g/dL (3.5-5.0); Albumin Globulin Ratio 1.3 (1.0-2.8); Alkaline Phosphatase 112 U/L (38-126); Aspartate Aminotransferase 30 IU/L (14-36); BUN Creatinine Ratio 23.3 (6-22); Bilirubin Total 0.7 mg/dL (0.2-1.3); Blood Urea Nitrogen 17 mg/dL (7-17); Calcium 9.9 mg/dL (8.4-10.2); Carbon Dioxide 31 mmol/L (22-32); Chloride 102 mmol/L (98-107); Cholesterol 236 mg/dL (140-199); Estimated Glomerular Filt Rate > 60 mL/min (>60); Globulin 3.1 g/dL (1.7-4.1); Glucose 101 mg/dL (80-110); HDL Cholesterol 61 mg/dL (40-60); HEMOLYSIS < 15 (0-50); LDL Cholesterol Calculated 150 mg/dL (<100); Potassium 3.7 mmol/L (3.4-5.1); Sodium 139 mmol/L (137-145); Triglycerides 123 mg/dL (35-150)
[2023-01-01 09:43] LABS: TSH w/ Reflex to FT4 0.05 uIU/mL (0.47-4.68)
[2023-01-01 10:12] LABS: Free T4, Direct Thyroxine 1.08 ng/dL (0.78-2.19)
== END ==
PROVIDERS: PCP Family Medicine; Referring Provider Family Medicine; Visit Provider Family Medicine
DX: I10 Essential (primary) hypertension (principal); E78.5 Hyperlipidemia, unspecified; E03.9 Hypothyroidism, unspecified
CPT/HCPCS: 36415; 80053; 80061; 84439; 84443; 85025

== ENCOUNTER → 2023-01-27 10:51 | Outpatient (CLI) | payer MEDICARE, OTHER, SELFPAY ==
[2022-08-18 21:50] VITALS: PULSE 82; RESP 17; O2SAT 95
[2022-08-18 22:55] VITALS: BMI 33.3
== END ==
PROVIDERS: PCP Family Medicine; Referring Provider Family Medicine; Visit Provider Family Medicine
DX: M85.851 Other specified disorders of bone density and structure, right thigh (principal); Z78.0 Asymptomatic menopausal state
CPT/HCPCS: 77080; 77081

== ENCOUNTER → 2023-03-18 07:01 | Outpatient (CLI) | payer MEDICARE, OTHER, SELFPAY ==
[2022-08-18 21:50] VITALS: PULSE 82; RESP 17; O2SAT 95
[2022-08-18 22:55] VITALS: BMI 33.3
[2023-03-18 08:11] LABS: Add Manual Diff / Slide Review NO; Basophils Absolute Auto 0 /uL (0-100); Basophils Percent Auto 0.7 % (0-2); Eosinophils Absolute Auto 100 /uL (0-450); Hematocrit 40.4 % (36-46); Hemoglobin 13.8 g/dL (12.0-16.0); Lymphocytes Absolute Auto 1200 /uL (1100-4500); Mean Corpuscular HGB Conc 34.2 % (30-36); Mean Corpuscular Hemoglobin 30.5 PG (26-34); Mean Corpuscular Volume 89.4 fL (80-100); Monocytes Absolute Auto 200 /uL (0-900); Neutrophils Absolute Auto 2600 /uL (1500-7000); Neutrophils Percent Auto 62.3 % (50-75); Platelet Count 218 X10^3/uL (150-400); Red Blood Cell Count 4.52 X10^6/uL (4.0-5.2); Red Cell Distribution Width 13.8 % (11.6-14.8); White Blood Cell Count 4.1 X10^3/uL (4.5-11.0)
[2023-03-18 08:48] LABS: Alanine Aminotransferase 22 IU/L (<35); Albumin 4.1 g/dL (3.5-5.0); Albumin Globulin Ratio 1.6 (1.0-2.8); Alkaline Phosphatase 91 U/L (38-126); Aspartate Aminotransferase 31 IU/L (14-36); BUN Creatinine Ratio 26.6 (6-22); Bilirubin Total 0.6 mg/dL (0.2-1.3); Blood Urea Nitrogen 21 mg/dL (7-17); Calcium 9.7 mg/dL (8.4-10.2); Carbon Dioxide 29 mmol/L (22-32); Chloride 101 mmol/L (98-107); Estimated Glomerular Filt Rate > 60 mL/min (>60); Globulin 2.6 g/dL (1.7-4.1); Glucose 90 mg/dL (80-110); HEMOLYSIS < 15 (0-50); Potassium 3.8 mmol/L (3.4-5.1); Sodium 138 mmol/L (137-145); Total Protein 6.7 g/dL (6.3-8.2)
[2023-03-18 08:49] LABS: Cholesterol 180 mg/dL (140-199); HDL Cholesterol 68 mg/dL (40-60); LDL Cholesterol Calculated 89 mg/dL (<100); Triglycerides 116 mg/dL (35-150)
== END ==
PROVIDERS: PCP Family Medicine; Referring Provider Surgery; Visit Provider Surgery
DX: R05.9 Cough, unspecified (principal); E78.5 Hyperlipidemia, unspecified
CPT/HCPCS: 36415; 80053; 80061; 85025

== ENCOUNTER → 2023-03-22 15:01 | Outpatient (CLI) | payer MEDICARE, OTHER, SELFPAY ==
[2022-08-18 21:50] VITALS: PULSE 82; RESP 17; O2SAT 95
[2022-08-18 22:55] VITALS: BMI 33.3
--- NOTE | 2023-03-22 15:03 | DI.RAD.S_ITS ---
PROCEDURE: XR CHEST 2V INDICATIONS: History of pneumonia TECHNIQUE: 2 views of the chest were acquired. COMPARISON: Located Within [facility], CR, XR CHEST 2V, 09/14/2022, 16:01. FINDINGS: Surgical changes and devices: None. Lungs and pleura: Lungs are clear. No pleural effusions or pneumothorax. Mediastinum: Mediastinal contours are normal. Heart size is normal. Bones and chest wall: No suspicious bony abnormalities. Soft tissues appear unremarkable. IMPRESSION: No acute process. Dictated by: Celine Ferrer M.D. on 03/22/2023 at 16:38 Approved by: Celine Ferrer M.D. on 03/22/2023 at 16:38
== END ==
PROVIDERS: PCP Family Medicine; Referring Provider Surgery; Visit Provider Surgery
DX: R05.9 Cough, unspecified (principal)
CPT/HCPCS: 71046

== ENCOUNTER 2023-05-13 09:47 | Day surgery (SDC) | payer MEDICARE, OTHER, SELFPAY ==
[2022-08-18 21:50] VITALS: PULSE 82; RESP 17; O2SAT 95
[2022-08-18 22:55] VITALS: BMI 33.3
--- NOTE | 2023-05-13 | PATH_ITS ---
[facility] Accession Number: [id number] No. of containers..02 Tissue . 01 Material submitted: . PART A: duodenum - DUODENAL BULB BIOPSY PART B: gastrointestinal site - ANTRUM BIOPSY . 01 Diagnosis: A. Duodenal Bulb, Biopsy: Duodenal mucosa with foveolar metaplasia, consistent with peptic duodenitis. Negative for active inflammation, features of sprue, dysplasia or malignancy. . B. Gastric Antrum, Biopsy: Gastric antral mucosa with mild chronic inflammation. Negative for Helicobacter organisms by immunohistochemistry. Negative for intestinal metaplasia. Negative for dysplasia or malignancy. [facility] 05/21/2023 1452 Local . 01 Electronically signed: . Lambert Acevedo MD, PhD, Pathologist NPI- [id number] . 01 Gross description: . Part A: DUODENAL BULB BIOPSY: Received in formalin are 4 fragment(s) of mtz, soft tissue measuring 0.1 x 0.1 x 0.1 cm to 0.3 x 0.2 x 0.2 cm submitted entirely in 1 cassette(s) Part B: ANTRUM BIOPSY: Received in formalin are 4 fragment(s) of mtz, soft tissue measuring 0.1 x 0.1 x 0.1 cm to 0.3 x 0.2 x 0.2 cm submitted entirely in 1 cassette(s) /RAUL 05/18/2023 2318 Local . 01 Microscopic: . B. An immunohistochemical stain was performed to evaluate for Helicobacter organisms and is negative. The control stain showed appropriate reactivity. . * This test was developed and its performance characteristics determined by [facility]. It has not been cleared or approved by the U.S. Food and Drug Administration. The FDA has determined that such clearance or approval is not necessary. This test is used for clinical purposes. It should not be regarded as investigational or for research. . 01 Pathologist provided ICD-10: R10.13, K29.80, K29.70 . 01 CPT . 215161, 267056, S88570 Specimen Comment: A courtesy copy of this report has been sent to [phone] Performed at: 01 [facility] [address] [place] [address], [place], [place] [id number] MD Tyree Ronquillo MD Phone: [phone]
[2023-05-13] MEDS: LACTATED RINGERS 1,000 ML 42 ML IV (10:01)
[2023-05-13 10:03] VITALS: BP 148/78; PULSE 65; RESP 16; TEMP 36.4; O2SAT 98; BMI 28.3
--- NOTE | 2023-05-13 11:21 | P.HP_ITS ---
History of Present Illness History of Present Illness Date Patient Seen: 05/13/23 Time Patient Seen: 11:21 Chief complaint: EGD Narrative: Martha is here for her EGD. See office note from February for details. She was not approved for her colonoscopy so she did not do a prep. [facility], [facility] Medical History Bilateral arm pain Bilateral hand numbness Bilateral hand pain Cervical somatic dysfunction Chronic pain of left lower extremity Chronic pain of right knee Cough Cranial somatic dysfunction Cyst Depression (Unknown) Diverticulitis Diverticulitis large intestine GERD (gastroesophageal reflux disease) (Unknown) Hair loss Hand anomaly HTN (hypertension) Hyperlipemia (Unknown) Hypothyroidism (Unknown) Neck stiffness Osteopenia (~12/2015) Osteoporosis Palpitations PVC's (premature ventricular contractions) Segmental and somatic dysfunction of rib cage Somatic dysfunction of lower extremity Thoracic region somatic dysfunction TIA (transient ischemic attack) (2013) Transient left leg weakness Tremor of left hand Trigger finger Upper extremity somatic dysfunction Surgical History History of left hip replacement Hx of cataract surgery Hx of section (Unknown) Hx of cholecystectomy (Unknown) Hx of tonsillectomy (Unknown) Status post ORIF of fracture of ankle (03/2016) Family History Father Hypertension Mother Hypertension Sister Bipolar 1 disorder Social History household members: spouse Smoking Status: Never smoker alcohol intake: current Meds Home Medications and Allergies Home Medications Medication Instructions Recorded Confirmed Type calcium carb 333 mg-vit D3 133 1 tab PO BID 11/17/19 03/26/23 History unit-mag ox 133 mg-zinc oxide 5 mg tab Cheleated Magnesium Glycinate 400 mg PO BID 10/03/20 03/26/23 History folic acid-vit B6-vit B12 0.8 1 tab PO DAILY 10/03/20 03/26/23 History mg-50 mg-100 mcg tablet (Homocysteine Formula) triamterene 37.5 See Rx Instructions .Route 03/04/22 05/13/23 Rx mg-hydrochlorothiazide 25 mg tablet .COMPLEX #90 tabs coenzyme Q10 10 cap PO DAILY 04/08/22 03/26/23 History Progesterone E4M #90 caps 06/30/22 03/26/23 Rx bupropion HCl 75 mg tablet 75 mg PO BID #180 tabs 08/18/22 05/13/23 Rx rosuvastatin 5 mg tablet 5 mg PO BEDTIME #90 tabs 01/12/23 05/13/23 Rx sertraline 25 mg tablet 25 mg PO DAILY #90 tabs 01/12/23 05/13/23 Rx levothyroxine 50 mcg tablet See Rx Instructions .Route 02/23/23 05/13/23 Rx .COMPLEX #90 tabs Allergies Allergy/AdvReac Type Severity Reaction Status Date / Time omeprazole AdvReac Severe DRY MOUTH, Verified 05/13/23 09:58 changed taste sensations Exam Vital Signs (past 8 hours): - 05/13/23 10:03 Temperature 97.6 F Pulse Rate 65 Respiratory Rate 16 Blood Pressure 148/78 H Pulse Oximetry 98 Oxygen Delivery Method Room Air Oxygen Delivery Method Room Air Const General: healthy appearing Assessment & Plan Assessment and plan (1) Heartburn: Status: Acute Plan We reviewed the risks and benefits of colonoscopy and she would like to proceed
--- NOTE | 2023-05-13 11:46 | PM.OP.EGD ---
Operative Date/Time/Diagnoses Date of procedure: 05/13/23 Time of procedure: 11:46 Pre-op diagnosis: Dysphagia and abdominal pain Post-op diagnosis: same Procedure & Clinicians Study performed: Esophagogastroduodenoscopy Same procedure as scheduled: Yes Surgeon: Orestes Mcconnell Procedure Notes Procedure in detail: Surgeon: Orestes Mcconnell MD Anesthesia: Raissa Wells DO A timeout was performed. A bite blocked was placed. The patient was positioned in the left lateral decubitus position. Anesthesia was administered. The endoscope was inserted through the bite block and passed through the esophagus and stomach and into the duodenum. The duodenal mucosa appeared normal. The duodenal bulb was inflamed and random biopsies were taken from the duodenal bulb. The scope was withdrawn into the stomach. There was antritis and multiple small shallow ulcers throughout the antral mucosa. Random biopsies were taken from the antrum. The rest of the stomach was normal. The scope was retroflexed and no hiatal hernia was seen. The scope was withdrawn into the esophagus and no other abnormalities were seen. The remainder of the esophagus was normal. The scope was withdrawn. The patient was awakened and brought to recovery. Sedation time: 5 minutes Findings: Antritis, duodenitis and multiple small shallow ulcers Post-procedure Disposition: PACU
--- NOTE | 2023-05-13 11:56 | SUR.PHASEI ---
received to PACU at 1151 after MAC. Report from JULIANNA Haji and JOHN Freeman.
[2023-05-13 11:57] VITALS: BP 128/76; PULSE 78; RESP 14; O2SAT 98
[2023-05-13 12:03] VITALS: BP 128/77; PULSE 66; RESP 16; O2SAT 96
[2023-05-13 12:07] VITALS: BP 128/72; PULSE 67; RESP 18; O2SAT 97
[2023-05-13 12:08] VITALS: BP 134/67; PULSE 67; RESP 14; TEMP 36.1; O2SAT 97
== END 2023-05-13 12:24 | disposition home or self-care (01) ==
PROVIDERS: PCP Family Medicine; Referring Provider Surgery; Visit Provider Surgery
PROC: 0DJ08ZZ Inspection of Upper Intestinal Tract, Via Natural or Artificial Opening Endoscopic (ICD-10-PCS; CPT 43235; principal; 2023-05-13 10:45)
DX: R10.9 Unspecified abdominal pain (principal); R13.10 Dysphagia, unspecified; K29.50 Unspecified chronic gastritis without bleeding; K29.80 Duodenitis without bleeding; K25.9 Gastric ulcer, unspecified as acute or chronic, without hemorrhage or perforation
CPT/HCPCS: 43239

== ENCOUNTER → 2023-08-10 12:07 | Outpatient (CLI) | payer MEDICARE, OTHER, SELFPAY ==
[2022-08-18 21:50] VITALS: PULSE 82; RESP 17; O2SAT 95
[2022-08-18 22:55] VITALS: BMI 33.3
--- NOTE | 2023-08-10 12:09 | DI.RAD.S_ITS ---
PROCEDURE: XR HIP W PEL IF DONE RT 2V INDICATIONS: ongoing right hip pain/RLE pain TECHNIQUE: AP pelvis and lateral view of the right hip acquired. COMPARISON: None. FINDINGS: Bones: Moderate right hip osteoarthritis with osseous hypertrophy mild joint space narrowing. Patient is status post left hip arthroplasty, with hardware components in expected positions. The hip joint appears congruent. The visualized bony structures appear intact. Soft tissues: No suspicious soft tissue densities. IMPRESSION: Moderate right hip osteoarthritis. Dictated by: Julee Wills MD, PhD on 08/10/2023 at 13:09 Approved by: Julee Wills MD, PhD on 08/10/2023 at 13:09
--- NOTE | 2023-08-10 12:09 | DI.RAD.S_ITS ---
PROCEDURE: XR KNEE RT 3V INDICATIONS: ongoing right hip pain, RLE pain TECHNIQUE: 3 views of the knee were acquired. COMPARISON: [facility], CR, XR KNEE RT 3V, 08/19/2021, 14:03. FINDINGS: Bones: No fractures or dislocations. No suspicious bony lesions. Moderate tricompartmental osteoarthritis with osseous hypertrophy and mild joint space narrowing. Soft tissues: No joint effusion. Chondrocalcinosis. IMPRESSION: Moderate right knee tricompartmental osteoarthritis. Dictated by: Julee Wills MD, PhD on 08/10/2023 at 13:09 Approved by: Julee Wills MD, PhD on 08/10/2023 at 13:10
== END ==
PROVIDERS: PCP Family Medicine; Referring Provider Family Medicine; Visit Provider Family Medicine
DX: M16.11 Unilateral primary osteoarthritis, right hip (principal); M17.11 Unilateral primary osteoarthritis, right knee; M11.261 Other chondrocalcinosis, right knee; M25.551 Pain in right hip; M79.604 Pain in right leg
CPT/HCPCS: 73502; 73562

== ENCOUNTER → 2023-11-02 08:49 | Outpatient (CLI) | payer MEDICARE, OTHER, SELFPAY ==
[2022-08-18 21:50] VITALS: PULSE 82; RESP 17; O2SAT 95
[2022-08-18 22:55] VITALS: BMI 33.3
--- NOTE | 2023-11-02 | DI.MRI.S_ITS ---
PROCEDURE: MR LUMBAR SPINE WO CON INDICATIONS: Spinal stenosis, lumbar region TECHNIQUE: Noncontrast sagittal T1 spin echo and T2 fast echo, sagittal STIR, and T2 fast spin echo through the lumbar spine. In cases with scoliosis, additional coronal T2 fast spin echo may be performed. COMPARISON: [facility], CR, XR LUMBAR SPINE 2 OR 3 VIEWS, 09/08/2023, 10:11. FINDINGS: Image quality: Excellent. Alignment and Curvature: There is transitional anatomy with small riblits of the low thoracic vertebral body. The 1st non rib-bearing vertebral bodies designated as L1. There is normal bony alignment. Bone Marrow: Near complete ankylosis of the L4-5 vertebral bodies. Marrow is of normal overall signal. No acute vertebral body compression fractures. Spinal Cord: Conus medullaris terminates at the L1 level. Visualized cord demonstrates normal signal and size. Paraspinous Soft Tissues: No paravertebral masses. T12-L1: Disc desiccation. No central canal or neural foraminal stenosis. L1-L2: Disc desiccation and minimal posterior disc bulge. Facet arthropathy. No central canal or neural foraminal stenosis. L2-L3: Disc desiccation height loss. Minimal posterior disc bulge. Facet arthropathy and thickened ligamentum flavum. Mild central canal stenosis. Mild bilateral neural foraminal stenosis. L3-L4: Disc desiccation and height loss with posterior disc bulge. Facet arthropathy and thickening of ligamentum flavum. Mild to moderate central canal stenosis. Sjbc-so-ujfxphth bilateral neural foraminal stenosis. L4-L5: Severe disc height loss with near ankylosis of the vertebral bodies. No central canal stenosis. Facet arthropathy. Mild left neural foraminal stenosis. No right neural foraminal stenosis. L5-S1: No central canal or neural foraminal stenosis. IMPRESSION: 1. Multilevel degenerative changes of the lumbar spine as described above. 2. Nery-nx-zuuprtfu central canal stenosis at L3-L4 and mild at L2-L3. 3. Jyjc-op-xmvragin bilateral neural foraminal stenosis at L3-L4. Dictated by: Israel Maza M.D. on 11/02/2023 at 10:11 Approved by: Israel Maza M.D. on 11/02/2023 at 10:44
== END ==
PROVIDERS: PCP Family Medicine; Referring Provider Physical Medicine & Rehabilitation; Visit Provider Physical Medicine & Rehabilitation
DX: M48.062 Spinal stenosis, lumbar region with neurogenic claudication (principal); M47.816 Spondylosis without myelopathy or radiculopathy, lumbar region
CPT/HCPCS: 72148

== ENCOUNTER → 2024-02-16 06:43 | Outpatient (CLI) | payer MEDICARE, OTHER, SELFPAY ==
[2022-08-18 21:50] VITALS: PULSE 82; RESP 17; O2SAT 95
[2022-08-18 22:55] VITALS: BMI 33.3
[2024-02-16 07:48] LABS: Add Manual Diff / Slide Review NO; Basophils Absolute Auto 0 /uL (0-100); Basophils Percent Auto 0.6 % (0-2); Eosinophils Absolute Auto 200 /uL (0-450); Eosinophils Percent Auto 3.3 % (2-4); Hematocrit 35.3 % (36-46); Hemoglobin 12.1 g/dL (12.0-16.0); Lymphocytes Absolute Auto 1100 /uL (1100-4500); Lymphocytes Percent Auto 22.8 % (25-40); Mean Corpuscular HGB Conc 34.4 % (30-36); Mean Corpuscular Hemoglobin 31.3 PG (26-34); Mean Corpuscular Volume 90.9 fL (80-100); Monocytes Absolute Auto 400 /uL (0-900); Monocytes Percent Auto 7.5 % (3-14); Neutrophils Absolute Auto 3200 /uL (1500-7000); Neutrophils Percent Auto 65.8 % (50-75); Platelet Count 234 X10^3/uL (150-400); Red Blood Cell Count 3.89 X10^6/uL (4.0-5.2); Red Cell Distribution Width 14.2 % (11.6-14.8); White Blood Cell Count 4.8 X10^3/uL (4.5-11.0)
[2024-02-16 08:02] LABS: Alanine Aminotransferase 17 IU/L (<35); Albumin 3.8 g/dL (3.5-5.0); Albumin Globulin Ratio 1.2 (1.0-2.8); Alkaline Phosphatase 101 U/L (38-126); Aspartate Aminotransferase 26 IU/L (14-36); BUN Creatinine Ratio 23.1 (6-22); Bilirubin Total 0.6 mg/dL (0.2-1.3); Blood Urea Nitrogen 15 mg/dL (7-17); Calcium 9.8 mg/dL (8.4-10.2); Carbon Dioxide 31 mmol/L (22-32); Chloride 103 mmol/L (98-107); Cholesterol 159 mg/dL (140-199); Estimated Glomerular Filt Rate > 60 mL/min (>60); Globulin 3.1 g/dL (1.7-4.1); Glucose 100 mg/dL (80-110); HDL Cholesterol 60 mg/dL (40-60); HEMOLYSIS < 15 (0-50); LDL Cholesterol Calculated 79 mg/dL (<100); Potassium 4.3 mmol/L (3.4-5.1); Sodium 136 mmol/L (137-145); Total Protein 6.9 g/dL (6.3-8.2); Triglycerides 102 mg/dL (35-150)
[2024-02-16 08:09] LABS: HEMOLYSIS < 15 (0-50); Iron 81 ug/dL (37-170)
[2024-02-16 08:19] LABS: Vitamin D 25 Hydroxy (D3) 54.6 ng/mL (30.0-100.0)
[2024-02-16 08:20] LABS: Percent Iron Saturation 24 % (15-50); Total Iron Binding Capacity 337 ug/dL (265-497); Transferrin 292 mg/dL (206-381)
[2024-02-16 08:35] LABS: TSH w/ Reflex to FT4 0.49 uIU/mL (0.47-4.68)
[2024-02-16 08:37] LABS: Ferritin 35 ng/mL (11-264)
[2024-02-16 08:52] LABS: Vitamin B12 955 pg/mL (239-931)
== END ==
PROVIDERS: PCP Family Medicine; Referring Provider Physician Assistant; Visit Provider Physician Assistant
DX: R53.83 Other fatigue (principal); E78.5 Hyperlipidemia, unspecified; I10 Essential (primary) hypertension; M81.0 Age-related osteoporosis without current pathological fracture; E03.9 Hypothyroidism, unspecified
CPT/HCPCS: 36415; 80053; 80061; 82306; 82607; 82728; 83540; 83550; 84443; 85025

== ENCOUNTER → 2024-03-20 09:35 | Outpatient (CLI) | payer MEDICARE, OTHER, SELFPAY ==
[2022-08-18 21:50] VITALS: PULSE 82; RESP 17; O2SAT 95
[2022-08-18 22:55] VITALS: BMI 33.3
[2024-03-20 11:46] LABS: TSH w/ Reflex to FT4 0.84 uIU/mL (0.47-4.68)
== END ==
PROVIDERS: PCP Family Medicine; Referring Provider Physician Assistant; Visit Provider Physician Assistant
DX: E03.9 Hypothyroidism, unspecified (principal)
CPT/HCPCS: 36415; 84443

== ENCOUNTER → 2025-02-16 06:38 | Outpatient (CLI) | payer MEDICARE, OTHER, SELFPAY ==
[2022-08-18 21:50] VITALS: PULSE 82; RESP 17; O2SAT 95
[2022-08-18 22:55] VITALS: BMI 33.3
[2025-02-16 07:38] LABS: Add Manual Diff / Slide Review NO; Basophils Absolute Auto 0 /uL (0-100); Basophils Percent Auto 0.9 % (0-2); Eosinophils Absolute Auto 100 /uL (0-450); Eosinophils Percent Auto 2.2 % (2-4); Hemoglobin 13.6 g/dL (12.0-16.0); Lymphocytes Absolute Auto 1300 /uL (1100-4500); Lymphocytes Percent Auto 28.7 % (25-40); Mean Corpuscular HGB Conc 33.9 % (30-36); Mean Corpuscular Hemoglobin 30.6 PG (26-34); Mean Corpuscular Volume 90.3 fL (80-100); Monocytes Absolute Auto 300 /uL (0-900); Monocytes Percent Auto 6.3 % (3-14); Neutrophils Absolute Auto 2900 /uL (1500-7000); Neutrophils Percent Auto 61.9 % (50-75); Platelet Count 216 X10^3/uL (150-400); Red Blood Cell Count 4.43 X10^6/uL (4.0-5.2); Red Cell Distribution Width 13.9 % (11.6-14.8); White Blood Cell Count 4.7 X10^3/uL (4.5-11.0)
[2025-02-16 07:52] LABS: Alanine Aminotransferase 21 IU/L (<35); Albumin 4.1 g/dL (3.5-5.0); Albumin Globulin Ratio 1.6 (1.0-2.8); Alkaline Phosphatase 94 U/L (38-126); Aspartate Aminotransferase 31 IU/L (14-36); BUN Creatinine Ratio 26.1 (6-22); Bilirubin Total 0.8 mg/dL (0.2-1.3); Blood Urea Nitrogen 23 mg/dL (7-17); Calcium 10.3 mg/dL (8.4-10.2); Carbon Dioxide 26 mmol/L (22-32); Chloride 103 mmol/L (98-107); Cholesterol 185 mg/dL (140-199); Estimated Glomerular Filt Rate > 60 mL/min (>60); Globulin 2.5 g/dL (1.7-4.1); Glucose 97 mg/dL (80-110); HDL Cholesterol 64 mg/dL (40-60); HEMOLYSIS < 15 (0-50); LDL Cholesterol Calculated 96 mg/dL (<100); Potassium 3.8 mmol/L (3.4-5.1); Sodium 136 mmol/L (137-145); Total Protein 6.6 g/dL (6.3-8.2); Triglycerides 127 mg/dL (35-150)
[2025-02-16 08:22] LABS: TSH w/ Reflex to FT4 2.87 uIU/mL (0.47-4.68)
== END ==
PROVIDERS: PCP Family Medicine; Referring Provider Family Medicine; Visit Provider Family Medicine
DX: I10 Essential (primary) hypertension (principal); E03.9 Hypothyroidism, unspecified; E78.5 Hyperlipidemia, unspecified
CPT/HCPCS: 36415; 80053; 80061; 84443; 85025

== ENCOUNTER → 2025-03-21 07:54 | Outpatient (CLI) | payer MEDICARE, OTHER, SELFPAY ==
[2022-08-18 21:50] VITALS: PULSE 82; RESP 17; O2SAT 95
[2022-08-18 22:55] VITALS: BMI 33.3
== END ==
PROVIDERS: PCP Family Medicine; Referring Provider Family Medicine; Visit Provider Family Medicine
DX: R00.2 Palpitations (principal)
CPT/HCPCS: 93242; 93244

== ENCOUNTER → 2025-03-26 16:28 | Outpatient (CLI) | payer MEDICARE, OTHER, SELFPAY ==
[2022-08-18 21:50] VITALS: PULSE 82; RESP 17; O2SAT 95
[2022-08-18 22:55] VITALS: BMI 33.3
--- NOTE | 2025-03-26 16:30 | DI.RAD.S_ITS ---
PROCEDURE: XR WRIST LT MIN 3V INDICATIONS: wrist injury TECHNIQUE: 4 views of the wrist were acquired. COMPARISON: None. FINDINGS: Bones: No fractures or dislocations. No suspicious bony lesions. Significant 1st CMC degenerative narrowing with subchondral sclerosis and periarticular osteophytes. Radiocarpal narrowing is present. Soft tissues: No suspicious soft tissue calcifications. IMPRESSION: No visualized acute fracture or dislocation. However, if clinical concern and/or pain persist, short interval imaging followup in 7-10 days is recommended, as occult injury cannot be definitively excluded. Dictated by: Amarilis Beth M.D. on 03/27/2025 at 9:16 Approved by: Amarilis Beth M.D. on 03/27/2025 at 9:17
--- NOTE | 2025-03-26 16:30 | DI.RAD.S_ITS ---
PROCEDURE: XR FOREARM LT 2V INDICATIONS: wrist injury TECHNIQUE: 2 views of the forearm were acquired. COMPARISON: [facility], CR, XR WRIST LT MIN 3V, 03/26/2025, 16:29. FINDINGS: Bones: No fractures or dislocations. No suspicious bony lesions. Soft tissues: No suspicious soft tissue calcifications or masses. IMPRESSION: No visualized acute fracture or dislocation. However, if clinical concern and/or pain persist, short interval imaging followup in 7-10 days is recommended, as occult injury cannot be definitively excluded. Dictated by: Amarilis Beth M.D. on 03/27/2025 at 9:17 Approved by: Amarilis Beth M.D. on 03/27/2025 at 9:18
== END ==
PROVIDERS: PCP Family Medicine; Referring Provider Nurse Practitioner Family; Visit Provider Nurse Practitioner Family
DX: W19.XXXA Unspecified fall, initial encounter; S59.912A Unspecified injury of left forearm, initial encounter
CPT/HCPCS: 73090; 73110

== ENCOUNTER → 2025-05-14 07:41 | Outpatient (CLI) | payer MEDICARE, OTHER, SELFPAY ==
[2022-08-18 21:50] VITALS: PULSE 82; RESP 17; O2SAT 95
[2022-08-18 22:55] VITALS: BMI 33.3
--- NOTE | 2025-05-14 17:32 | DI.NM.S_ITS ---
DATE OF SERVICE: 05/14/2025 NUCLEAR CARDIOLOGY MYOCARDIAL PERFUSION STUDY PROCEDURE: Pharmacologic vasodilator stress and rest myocardial perfusion imaging with gating to assess ejection fraction and regional wall motion. ORDERING PROVIDER: Aki Briscoe M.D. INDICATIONS: The patient is an 79-year-old female with palpitations and atypical chest pressure. CARDIAC STRESS: Per protocol, 0.4 mg of regadenoson was infused with a normal hemodynamic response with development of mild dyspnea with neck and chest pressure. Her resting ECG is normal and there are no significant ST-segment shifts or arrhythmias with stress. Per protocol, 25.3 mCi of technetium-99m Myoview was injected and she was imaged 15 minutes later using a gated SPECT acquisition protocol. Earlier in the day while at rest, she was and injected with 12.1 mCi of technetium-99m Myoview and was imaged 15 minutes later, again using a gated SPECT acquisition protocol. FINDINGS: 1. Raw data: There is good myocardial tracer uptake with minimal breast shadows noted. The lung/heart ratio is normal at 0.41 with a normal TID ratio of 1.10. 2. Quantitated gated SPECT: Post-stress ejection fraction is 78% without any focal wall motion abnormality. The resting ejection fraction is 79% with a normal resting end-diastolic volume of 66 mL. 3. Myocardial perfusion imaging: Post-stress supine images show a normal myocardial perfusion pattern without any perfusion defects, supported by normal perfusion imaging in the prone position. The resting images show a similar perfusion pattern without any areas of improvement. IMPRESSION: 1. Normal myocardial perfusion study. 2. No evidence of myocardial ischemia or previous myocardial infarction. 3. Normal left ventricular size and systolic function without focal wall motion abnormality. 4. Mild dyspnea and chest discomfort with pharmacologic vasodilator stress but without any ST-segment shifts or arrhythmias. 5. Compared to the previous myocardial perfusion study from 12/21/2019, the previous anterior defect is now less evident and likely reflected breast attenuation artifact. The previous ejection fraction was 89% with an end-diastolic volume of 71 mL and suggests the absence of any concerning change since the previous exam. Martha Weeks - RS/fn/PA doc#: [id number]/job#: [id number] dd: 05/14/2025 16:57:00 dt: 05/14/2025 17:17:00 DICTATING MD/COPIES TO: Landen Brumfield MD; Aki Briscoe M.D. COPIES MNE: JIA;
== END ==
LOC: NUCM 07:43
PROVIDERS: PCP Family Medicine; Referring Provider Family Medicine; Visit Provider Family Medicine
DX: I47.10 Supraventricular tachycardia, unspecified (principal); R07.89 Other chest pain; R53.1 Weakness; I49.3 Ventricular premature depolarization
CPT/HCPCS: 78452; 93017; A9502; J2785